=== PATIENT | male | born 1955 | race Caucasian/White ===

== ENCOUNTER 2019-08-24 00:33 | Inpatient (IN) | payer MEDICARE ==
[2019-08-24] MEDS ORDERED: Ondansetron PF 4 MG/2 ML Vial IVP PRN (05:29)
[2019-08-24] MEDS ORDERED: HYDROcodone/Acetaminophen 5/325 mg Tablet PO PRN (05:29)
[2019-08-24] MEDS ORDERED: Promethazine HCl 12.5 MG in Sodium Chloride 0.9% 50 ML IVPB PRN (05:29)
[2019-08-24] MEDS ORDERED: Acetaminophen 325 MG TAB PO PRN (05:29)
[2019-08-24] MEDS ORDERED: hydrALAZINE 20 MG/ML VIAL SLOW IVP PRN (05:29)
[2019-08-24] MEDS ORDERED: cloNIDine 0.1 MG TAB PO PRN (05:29)
[2019-08-24] MEDS ORDERED: Labetalol HCl 100 MG/20 ML VIAL SLOW IVP PRN (05:29)
[2019-08-24] MEDS ORDERED: Guaifenesin DM 100-10/5 ML UDCUP PO PRN (05:29)
--- NOTE | 2019-08-24 05:40 | PDOC.HHP ---
Hospitalist HPI - History of Present Illness Altered mental status History of Present Illness: Patient is a 64 year old male with PMH hastimoto thyroiditis/hypothyroidism, HLD , seizure disorder, methamphetamine abuse, marijuana abuse who presents to the ED as [facility] for slurred speech and altered mental status. Patient called daughter last night and reported not feeling well and speech was slurred. Was brought to [place], there NIHSS 13, had seizure for 2 minutes and given ativan and valproic acid. He has a history of seizures adn is not on any medications. He abuses methamphetamine and marijuana reportedly. At [place], head CT clear, EKG NSR, vitals wnl. Patient altered but rousable, requests i "fuck off" and let him sleep and not talkative much beyond that. Hospitalist ROS - Review of Systems ROS unobtainable: due to mental status Hospitalist History - Past Medical History Other Medical History: hastimoto thyroiditis/hypothyroidism, HLD, seizure disorder, methamphetamine abuse, marijuana abuse - Past Surgical History Other Surgical History: Surgical history of hernia repair, Date of surgery APR 2014, Notes LEFT INGUINAL , Surgical history of orthopedic surgery, NECK FRACTURE WITH HARDWARE. - Family History Family History: reports: no pertinent history - Social History Other Social History: Patient drinks socially, rarely, Patient denies drug use, Patient currently uses tobacco, smokes cigarettes. Patient currently uses drugs, abuses marijuana , abuses methamphetamines, Patient drinks socially, rarely, Patient denies drug use, Patient currently uses tobacco, smokes cigarettes. Daughter reports Methamphetamine and MJA usage, last used this morning. - Exam General - other findings: altered mental status Eye: PERRL, anicteric sclera ENT: normocephalic atraumatic, no oropharyngeal lesions, moist mucosa Neck: supple, symmetric, no JVD, no thyromegaly, no lymphadenopathy, no carotid bruit Heart: RRR, no murmur, no gallops, no rubs, normal peripheral pulses Respiratory: CTAB, no wheezes, no rales, no ronchi, normal chest expansion, no tachypnea, normal percussion Gastrointestinal: soft, non-tender, non-distended, normal bowel sounds, no palpable masses, no hepatomegaly, no splenomegaly, no bruit Extremities: no cyanosis, no clubbing, no edema Skin: normal turgor, no lesions, no rashes Neurological: cranial nerve grossly intact, normal sensation to touch, no weakness, no focal deficits, no new deficit Musculoskeletal: normal tone, normal strength, no muscle wasting Psychiatric - other findings: altered, sleeping and groggy but rousable Hospitalist Results - Labs Lab results: labs from [facility] admission reviewed Additional comment: VITAL SIGNS Sat Aug 24, 2019 00:44 KALEB Cole Nicole BP: 110/75 MAP: 86 Pulse: 76 Resp: 18 Temp: 97.9 (Axillary) Pain: UTD O2 sat: 97 on (Room Air) Time: 08/24/2019 00:44. VITAL SIGNS Sat Aug 24, 2019 02:39 KALEB Cole Nicole BP: 133/76 Pulse: 62 Resp: 17 Pain: UTD O2 sat: 97 on (Room Air) Time: 08/24/2019 02:39. VITAL SIGNS Sat Aug 24, 2019 04:13 KALEB Cole Nicole BP: 110/75 Pulse: 59 Resp: 17 Temp: 97.9 (Axillary) Pain: UTD O2 sat: 98 on (Room Air) Time: 08/24/2019 04:13. Hospitalist H&P A/P - Plan Plan: Patient is a 64 year old male with PMH hastimoto thyroiditis/hypothyroidism, HLD , seizure disorder, methamphetamine abuse, marijuana abuse who presents to the ED as [facility] for slurred speech and altered mental status. # seizure - 2 minutes, broken w/ ativan, resume previous serizure meds, PRN ativan, precautions. CT head report pending. # kyperkalemia - mild, recheck now that had 2L NS # EFREN - recheck now s/p IVF # polysubstance abuse - meth, benzo, cannib detected in UDS, monitor closely on IVF
[2019-08-24] MEDS ORDERED: Lorazepam 2 MG/ML VIAL SLOW IVP PRN (06:07)
[2019-08-24 07:07] VITALS: BMI 21.7
[2019-08-24] MEDS: Levothyroxine 150 MCG TAB PO SCH (07:59)
[2019-08-24] MEDS: carBAMazepine 200 MG TAB PO SCH ×2 (09:15→21:04)
[2019-08-24] MEDS: Famotidine 20 MG TAB PO SCH (09:15)
[2019-08-24] MEDS: Enoxaparin Sodium 40 MG/0.4 ML SYRINGE SC SCH (09:15)
[2019-08-24] MEDS: Gabapentin 300 MG CAP PO SCH (09:15)
[2019-08-24 09:31] LABS: Hemoglobin 13.3 g/dL (14.0-18.0); Mean Corpuscular HGB CONC 33.3 g/dL (32.0-36.0); Mean Corpuscular Hemoglobin 30.3 pg (27.0-31.0); Mean Platelet Volume 8.1 fL (7.4-10.4); Platelet Count 246 thou/uL (130-400); RBC Distribution Width 12.2 % (11.5-14.5); Red Blood Cell (RBC) Count 4.38 mill/uL (4.70-6.10)
[2019-08-24 09:36] LABS: Anion Gap 15 mmol/L (10-20); BUN (Urea Nitrogen) 28 mg/dL (8.4-25.7); Calc. Creatinine Clearance 53 mL/min (70-130); Calcium 8.4 mg/dL (7.8-10.44); Carbon Dioxide 20 mmol/L (23-31); Chloride 109 mmol/L (98-107); Estimated GFR-MDRD 48; Glucose 66 mg/dL (80-115); Sodium 139 mmol/L (136-145)
--- NOTE | 2019-08-24 11:56 | PDOC.HOSPP ---
- Subjective Encounter Date: 08/24/19 Encounter Time: 09:30 Subjective: The patient still reports he feels weak. Denies dizziness while standing but feels his legs give out when he stands up. Reports being on gabapentin for years for neck pain. He denies back pain. No numbness in his legs, saddle anasthesia, bowel or bladder incontinence - Objective Vital Signs & Weight: Vital Signs (12 hours) Temp Pulse Pulse Pulse Resp BP BP 08/24/19 11:31 97.3 F L 54 L 16 08/24/19 08:35 54 L 53 L 117/81 118/75 08/24/19 08:09 98.1 F 55 L 16 08/24/19 05:01 97.7 F 56 L 13 BP BP Pulse Ox 08/24/19 11:31 123/82 99 08/24/19 08:35 08/24/19 08:09 110/73 99 08/24/19 05:01 105/74 98 Weight Weight 160 lb 4.8 oz Result Diagrams: 08/24/19 09:14 08/24/19 09:14 Hospitalist ROS - Review of Systems Constitutional: denies: fever, chills - Medication Medications: Active Medications Generic Name Dose Route Start Last Admin Trade Name Freq PRN Reason Stop Dose Admin Carbamazepine 200 mg 08/24/19 09:00 08/24/19 09:15 Tegretol PO 200 mg Q12HR WOO Administration Enoxaparin Sodium 40 mg 08/24/19 09:00 08/24/19 09:15 Lovenox SC 40 mg 0900 WOO Administration Famotidine 20 mg 08/24/19 09:00 08/24/19 09:15 Pepcid PO 20 mg 09 WOO Administration Gabapentin 300 mg 08/24/19 09:00 08/24/19 09:15 Neurontin PO 300 mg DAILY WOO Administration Levothyroxine Sodium 150 mcg 08/24/19 06:00 08/24/19 07:59 Synthroid PO Not Given 599 WOO - Exam General Appearance: NAD, awake alert Eye: PERRL, anicteric sclera ENT: normocephalic atraumatic, no oropharyngeal lesions Neck: no JVD Heart: RRR, no murmur, no gallops, no rubs Respiratory: CTAB, no wheezes, no rales, no ronchi Gastrointestinal: soft, non-tender, non-distended, normal bowel sounds Extremities: no cyanosis, no clubbing, no edema Skin: normal turgor, no lesions, no rashes Neurological: cranial nerve grossly intact, normal sensation to touch, no focal deficits, no new deficit Musculoskeletal: normal tone, normal strength, no muscle wasting Musculoskeletal - other findings: 5/5 leg strength in both extremities. Psychiatric: normal affect, normal behavior, A&O x 3 Hosp A/P - Plan This is a 64 year old male who presented with recurrent falls and weakness Acute kidney injury - creatinine up to 1.48. Will start on IV fluids. Chest Xray normal. - UA shows no UTI Weakness/Falls - possibly from dehydration. Hydrate with IV fluids - tegretol level normal. Chest X ray normal. CT brain read pending - check TSH - continue with physical therapy - will order a diet since his blood sugar is 66 Amphetamine abuse/Methamphetamine abuse/marijuana abuse - will pastoral counselor on cessation Hypothyroidism - continue levothyroxine. Check TSH Code status: full code
[2019-08-24] MEDS: Sodium Chloride 0.9% 1,000 ML IV SCH ×2 (12:23→21:05)
--- NOTE | 2019-08-24 14:35 | EKG ---
Test Reason : Blood Pressure : / mmHG Vent. Rate : 073 BPM Atrial Rate : 073 BPM P-R Int : 166 ms QRS Dur : 084 ms QT Int : 394 ms P-R-T Axes : 072 053 065 degrees QTc Int : 434 ms Normal sinus rhythm Cannot rule out Anterior infarct , age undetermined Abnormal ECG Confirmed by PIPER FRENCH, DULCE Napier ([id number]), desk editor DEMI PALM ([id number]) on 08/24/2019 2:34:28 PM Referred By: Confirmed By:DULCE SALDAÑA MD
[2019-08-25 04:59] LABS: #Eosinphils 0.2 thou/uL (0.0-0.7); #Monocytes 0.5 thou/uL (0.11-0.59); #Neutrophils 4.1 thou/uL (1.40-6.50); %Basophils 0.7 % (0.0-1.0); %Eosinophils 3.1 % (0.0-10.0); %Lymphocytes 29.3 % (21.0-51.0); %Monocytes 7.5 % (0.0-10.0); %Neutrophils 59.6 % (42.0-75.0); Hemoglobin 12.3 g/dL (14.0-18.0); Mean Corpuscular Hemoglobin 29.8 pg (27.0-31.0); Mean Corpuscular Volume 90.1 fL (78.0-98.0); Mean Platelet Volume 7.7 fL (7.4-10.4); Platelet Count 228 thou/uL (130-400); RBC Distribution Width 11.9 % (11.5-14.5); Red Blood Cell (RBC) Count 4.13 mill/uL (4.70-6.10); White Blood Cell (WBC) Count 6.8 thou/uL (4.8-10.8)
[2019-08-25 05:15] LABS: Anion Gap 10 mmol/L (10-20); BUN (Urea Nitrogen) 26 mg/dL (8.4-25.7); Calc. Creatinine Clearance 59 mL/min (70-130); Calcium 7.9 mg/dL (7.8-10.44); Carbon Dioxide 25 mmol/L (23-31); Chloride 108 mmol/L (98-107); Estimated GFR-MDRD 54; Glucose 77 mg/dL (80-115); Magnesium 1.8 mg/dL (1.6-2.6); Potassium 4.2 mmol/L (3.5-5.1); Sodium 139 mmol/L (136-145)
[2019-08-25] MEDS: Levothyroxine 150 MCG TAB PO SCH (05:26)
[2019-08-25] MEDS: Sodium Chloride 0.9% 1,000 ML IV SCH ×2 (05:28→15:44)
[2019-08-25] MEDS: carBAMazepine 200 MG TAB PO SCH (08:55)
[2019-08-25] MEDS: Famotidine 20 MG TAB PO SCH ×2 (08:55→20:50)
[2019-08-25] MEDS: Gabapentin 300 MG CAP PO SCH (08:55)
[2019-08-25] MEDS: Enoxaparin Sodium 40 MG/0.4 ML SYRINGE SC SCH (09:07)
[2019-08-25 14:27] LABS: Carbamazepine-Tegretol 6.3 ug/mL (4.0-12.0)
--- NOTE | 2019-08-25 17:19 | PDOC.HOSPP ---
- Subjective Encounter Date: 08/25/19 Encounter Time: 11:00 Subjective: The patient still noted to be drowsy. He states his dizziness has improved. He is eating some The patient was confused per nursing staff and did not know why he was here, but later on was able to state reason for admission - Objective Vital Signs & Weight: Vital Signs (12 hours) Temp Pulse Pulse Pulse Resp BP BP 08/25/19 17:01 08/25/19 15:46 56 L 164/100 H 08/25/19 15:18 97.4 F L 56 L 14 08/25/19 11:11 97.5 F L 59 L 20 08/25/19 10:51 56 L 60 157/92 H 08/25/19 07:25 97.6 F 58 L 16 BP BP BP Pulse Ox 08/25/19 17:01 160/90 H 08/25/19 15:46 08/25/19 15:18 164/100 H 100 08/25/19 11:11 144/90 H 98 08/25/19 10:51 144/90 H 08/25/19 07:25 160/83 H 99 Weight Weight 166 lb 8 oz I&O: 08/24/19 08/25/19 08/26/19 06:59 06:59 06:59 Intake Total 1800 480 Output Total 550 300 Balance 1250 180 Result Diagrams: 08/25/19 04:39 08/25/19 04:39 Hospitalist ROS - Review of Systems Constitutional: denies: fever, chills - Medication Medications: Active Medications Generic Name Dose Route Start Last Admin Trade Name Freq PRN Reason Stop Dose Admin Carbamazepine 200 mg 08/24/19 09:00 08/25/19 08:55 Tegretol PO 200 mg Q12HR WOO Administration Enoxaparin Sodium 40 mg 08/24/19 09:00 08/25/19 09:07 Lovenox SC 40 mg 0900 WOO Administration Gabapentin 300 mg 08/24/19 09:00 08/25/19 08:55 Neurontin PO 300 mg DAILY WOO Administration Hydralazine HCl 10 mg 08/24/19 05:29 08/25/19 15:46 Apresoline SLOW IVP 10 mg Q6H PRN Administration SBP GREATER THAN 160 Sodium Chloride 1,000 mls @ 100 mls/hr 08/24/19 12:00 08/25/19 15:44 Normal Saline 0.9% IV 1,000 mls .Q10H WOO Administration Levothyroxine Sodium 150 mcg 08/24/19 06:00 08/25/19 05:26 Synthroid PO 150 mcg 0600 WOO Administration - Exam General Appearance: NAD, awake alert Eye: PERRL, anicteric sclera ENT: normocephalic atraumatic Neck: supple, symmetric, no JVD Heart: RRR, no murmur, no gallops, no rubs Respiratory: CTAB, no wheezes, no rales, no ronchi Gastrointestinal: soft, non-tender, non-distended, normal bowel sounds Extremities: no cyanosis, no clubbing, no edema Skin: normal turgor, no lesions, no rashes Neurological: cranial nerve grossly intact, normal sensation to touch, no focal deficits, no new deficit Musculoskeletal: normal tone, normal strength, no muscle wasting Psychiatric: normal affect, normal behavior, A&O x 3, oriented to person Hosp A/P - Plan This is a 64 year old male who presented with recurrent falls and weakness Acute kidney injury - creatinine down to 1.33 - continue with IV fliuds Seizure - patient had seizure at outside hospital. Was started on tegretol here - levels are normal - neurology has been consulted, plan to do EEG tomorrow -will d/c tegretol, switch to keppra 500 mg bid Weakness/Falls - possibly from dehydration. Hydrate with IV fluids - tegretol level normal. Chest X ray normal. CT brain read pending - TSH normal Amphetamine abuse/Methamphetamine abuse/marijuana abuse - will middle school counselor on cessation Hypothyroidism - continue levothyroxine. TSH normal Code status: full code
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
[2019-08-25] MEDS: levETIRAcetam 500 MG TAB PO SCH (20:50)
[2019-08-25] MEDS ORDERED: carBAMazepine 100 mg Chewable Tablet PO SCH (21:00)
[2019-08-26] MEDS: Sodium Chloride 0.9% 1,000 ML IV SCH ×2 (02:44→16:06)
[2019-08-26 04:47] LABS: #Eosinphils 0.2 thou/uL (0.0-0.7); #Lymphocytes 1.7 thou/uL (1.20-3.40); #Monocytes 0.8 thou/uL (0.11-0.59); %Basophils 0.4 % (0.0-1.0); %Eosinophils 2.6 % (0.0-10.0); %Lymphocytes 22.2 % (21.0-51.0); %Monocytes 9.9 % (0.0-10.0); %Neutrophils 64.8 % (42.0-75.0); Mean Corpuscular HGB CONC 33.6 g/dL (32.0-36.0); Mean Corpuscular Hemoglobin 30.1 pg (27.0-31.0); Mean Corpuscular Volume 89.7 fL (78.0-98.0); Mean Platelet Volume 8.1 fL (7.4-10.4); Platelet Count 224 thou/uL (130-400); White Blood Cell (WBC) Count 7.8 thou/uL (4.8-10.8)
[2019-08-26 05:07] LABS: ALT (SGPT) 8 U/L (8-55); AST (SGOT) 11 U/L (5-34); Albumin 3.5 g/dL (3.4-4.8); Alkaline Phosphatase 86 U/L (40-110); Anion Gap 12 mmol/L (10-20); BUN (Urea Nitrogen) 19 mg/dL (8.4-25.7); Bilirubin, Total 0.4 mg/dL (0.2-1.2); Calc. Creatinine Clearance 64 mL/min (70-130); Calcium 8.3 mg/dL (7.8-10.44); Carbon Dioxide 22 mmol/L (23-31); Chloride 110 mmol/L (98-107); Estimated GFR-MDRD 57; Globulin 2.4 g/dL (2.4-3.5); Glucose 68 mg/dL (80-115); Magnesium 1.7 mg/dL (1.6-2.6); Potassium 4.2 mmol/L (3.5-5.1); Protein, Total 5.9 g/dL (5.8-8.1); Sodium 140 mmol/L (136-145)
[2019-08-26] MEDS: Levothyroxine 150 MCG TAB PO SCH (05:08)
[2019-08-26] MEDS: Enoxaparin Sodium 40 MG/0.4 ML SYRINGE SC SCH (08:17)
[2019-08-26] MEDS: Famotidine 20 MG TAB PO SCH ×2 (08:17→21:17)
[2019-08-26] MEDS: Gabapentin 300 MG CAP PO SCH (08:17)
[2019-08-26] MEDS: levETIRAcetam 500 MG TAB PO SCH ×2 (08:17→21:17)
--- NOTE | 2019-08-26 12:07 | CON ---
NEUROLOGY CONSULTATION DATE OF CONSULTATION: 08/26/2019 REASON FOR CONSULTATION: Altered mental status. HISTORY OF PRESENT ILLNESS: Mr. Penn is a 64-year-old male with history significant for Melissa thyroiditis, hyperlipidemia, seizure disorder, hypothyroidism, methamphetamine abuse, and marijuana abuse, presented to the emergency room as a transfer from [place] because of an episode of slurred speech and altered mental status. The patient called his daughter last night and told her that he was not feeling well. He also had slurred speech and tingling and numbness of the lower extremities followed by a seizure. When he was brought to the [place] ED, NIH Stroke Scale was 13 and he had a seizure lasting for 2 minutes and was given Ativan and loaded with valproic acid. He does have history of seizures, but was not on any medications. He has history of methamphetamine and marijuana abuse. Head CT was done in [place] ER, which did not reveal any acute intracranial pathology. EKG was also unremarkable with normal sinus rhythm and vitals were stable. The patient was altered and agitated, and he was transferred to [facility] for further workup. REVIEW OF SYSTEMS: The patient denies nausea, vomiting, headache, dizziness, chest pain, focal weakness, or focal paresthesias associated with an episode of altered mental status. His altered mental status is resolved at this time and he is back to his baseline. PAST MEDICAL HISTORY: Hypothyroidism, Melissa thyroiditis, hyperlipidemia, seizure disorder, methamphetamine and marijuana abuse. PAST SURGICAL HISTORY: Hernia repair. FAMILY HISTORY: No family history of epilepsy. SOCIAL HISTORY: The patient lives alone. He drinks socially. He does use tobacco. He abuses marijuana, methamphetamine. Vital Signs & Weight: Vital Signs (12 hours) Temp Pulse Pulse Pulse Resp BP BP 08/25/19 17:01 08/25/19 15:46 56 L 164/100 H 08/25/19 15:18 97.4 F L 56 L 14 08/25/19 11:11 97.5 F L 59 L 20 08/25/19 10:51 56 L 60 157/92 H 08/25/19 07:25 97.6 F 58 L 16 BP BP BP Pulse Ox 08/25/19 17:01 160/90 H 08/25/19 15:46 08/25/19 15:18 164/100 H 100 08/25/19 11:11 144/90 H 98 08/25/19 10:51 144/90 H 08/25/19 07:25 160/83 H 99 Weight Weight 166 lb 8 oz I&O: 08/24/19 08/25/19 08/26/19 06:59 06:59 06:59 Intake Total 1800 480 Output Total 550 300 Balance 1250 180 - Medication Medications: Active Medications Generic Name Dose Route Start Last Admin Trade Name Freq PRN Reason Stop Dose Admin Carbamazepine 200 mg 08/24/19 09:00 08/25/19 08:55 Tegretol PO 200 mg Q12HR WOO Administration Enoxaparin Sodium 40 mg 08/24/19 09:00 08/25/19 09:07 Lovenox SC 40 mg 0900 WOO Administration Gabapentin 300 mg 08/24/19 09:00 08/25/19 08:55 Neurontin PO 300 mg DAILY WOO Administration Hydralazine HCl 10 mg 08/24/19 05:29 08/25/19 15:46 Apresoline SLOW IVP 10 mg Q6H PRN Administration SBP GREATER THAN 160 Sodium Chloride 1,000 mls @ 100 mls/hr 08/24/19 12:00 08/25/19 15:44 Normal Saline 0.9% IV 1,000 mls .Q10H WOO Administration Levothyroxine Sodium 150 mcg 08/24/19 06:00 08/25/19 05:26 Synthroid PO 150 mcg 0600 WOO Administration - Exam General Appearance: NAD, awake alert Eye: PERRL, anicteric sclera ENT: normocephalic atraumatic Neck: supple, symmetric, no JVD Heart: RRR, no murmur, no gallops, no rubs Respiratory: CTAB, no wheezes, no rales, no ronchi Gastrointestinal: soft, non-tender, non-distended, normal bowel sounds Extremities: no cyanosis, no clubbing, no edema Skin: normal turgor, no lesions, no rashes Neurological: Mental status; the patient is alert and oriented to person, place, and time. Cranial nerves 2 through 12 intact. Motor; muscle tone and bulk are normal. Moving all 4 extremities equally and symmetrically. Cerebellar intact. Sensory intact. Reflexes deferred. Gait deferred due to the patient's safety reasons. DATA REVIEWED: I reviewed the CT scan, which was unremarkable. ASSESSMENT AND PLAN: Mr. Penn is a 64-year-old male with medical history significant for Melissa thyroiditis, hypothyroidism, hyperlipidemia, seizure disorder, and amphetamine abuse, presented with slurred speech and altered mental status. He had a witnessed seizure in the emergency room. Start Keppra 500 mg twice daily. Observe seizure precautions. Recommend EEG to see if there is a presence of interictal epileptiform discharges. Recommend MRI to rule out acute intracranial process. Recommend MRI of the lumbar spine because of tingling and paresthesias of bilateral lower extremities. Neuro checks every 4 hours. Continue home medications. Continue medical management per primary team. Further recommendations depending on the results of the testing. Thank you for the consult. Job ID: [id number] [facility]
--- NOTE | 2019-08-26 15:45 | EEG ---
Referring Physician: Nena OREILLY EEG # [id number] TEST TYPE: EXTENDED CONTINUOUS VIDEO EEG REPORT: This EEG was performed using 24 channel [employer] video digital EEG machine with 24 disc electrodes. This was an extended 2 hour 6 minutes of inpatient video EEG recording. Digital analysis of the EEG was done for spike and seizure detection which revealed no abnormalities. BACKGROUND: The posterior background rhythm is 8.5 hertz. Minimal reactivity is seen to eye opening and eye closure. HYPERVENTILATION: Not performed. PHOTIC STIMULATION: No significant response seen with photic stimulation. SLEEP: Drowsiness and sleep are observed. EEG DIAGNOSIS: Occasional irregular theta activity seen during the recording. CLINICAL INTERPRETATION: THIS EEG IS CONSISTENT WITH MILD GENERALIZED NONSPECIFIC CEREBRAL DYSFUNCTION. THERE ARE NO ICTAL OR INTERICTAL EPILEPTIFORM ABNORMALITIES SEEN DURING THE RECORDING. Flamer Sealer: NGOIZ [employer] Ded[employer] Machine Operator: EEG.[email or web address] CUETO
--- NOTE | 2019-08-26 19:22 | MRI ---
BRAIN MRI WITHOUT CONTRAST: Date: 08-26-2019 Comparison: None History: Seizure, left facial numbness. Technique: Multiplanar multisequence MR imaging of the brain is obtained without contrast. FINDINGS: The diffusion weighted imaging demonstrates no evidence for acute infarction. There is moderate degenerative change involving the atlantoaxial interspace. The visualized paranasal sinuses/mastoid air cells appear grossly unremarkable. Arterial flow voids at the axial level of the skull base appear grossly unremarkable on the T2 weight ed imaging. There are numerous scattered foci of increased T2 and FLAIR signal within the periventricular, deep, and subcortical white matter, evidence of extensive small vessel disease. Regional bone marrow signal intensity appears within normal limits. Coronal gradient echo imaging demonstrates no evidence for intracranial hemorrhage. There is a small arachnoid cyst within the anterior aspect of the middle cranial fossa on the right m easuring approximately 1.3 cm. The hippocampi appear grossly unremarkable on the provided thin section T1 coronal and gradient echo coronal imaging. IMPRESSION: No acute findings. Chronic findings as detailed above. POS: DEL
--- NOTE | 2019-08-26 19:26 | MRI ---
MRI LUMBAR SPINE WITHOUT CONTRAST: Indications: Low back pain. Numbness, difficulty walking. FINDINGS: The lumbar vertebrae maintain height and alignment. Disc spaces are normally preserved. Vertebral bod y signal appears normally maintained. L1-2: No disc bulge or protrusion. No central canal or foraminal stenosis. L2-3: Mild disc bulge which flattens the anterior thecal sac. Mild facet arthrosis. No significant ce ntral canal or foraminal stenosis. L3-4: Mild disc bulge flattens the anterior thecal sac. Mild facet arthrosis with posterior epidural fat. Mild central canal stenosis. L4-5: There is a broad based disc protrusion flattening the anterior thecal sac. Prominent facet hype rtrophy. Ligamentous hypertrophy. These changes result in mild to moderate central canal stenosis. B ilateral foraminal stenosis secondary to disc bulge and facet hypertrophy. L5-S1: No significant disc bulge. No central canal or foraminal stenosis. IMPRESSION: 1. Annular fissure with broad based protrusion at L4-5 as described above. 2. Incidentally noted in review of soft tissues is evidence of left hydronephrosis with dilated left renal pelvis. Recommend clinical correlation and further investigation as indicated. POS: SREE
[2019-08-27] MEDS: Sodium Chloride 0.9% 1,000 ML IV SCH ×2 (03:08→11:04)
[2019-08-27 05:10] LABS: #Eosinphils 0.3 thou/uL (0.0-0.7); #Lymphocytes 1.7 thou/uL (1.20-3.40); #Monocytes 0.7 thou/uL (0.11-0.59); #Neutrophils 3.5 thou/uL (1.40-6.50); %Basophils 0.4 % (0.0-1.0); %Lymphocytes 27.5 % (21.0-51.0); %Monocytes 10.9 % (0.0-10.0); %Neutrophils 56.2 % (42.0-75.0); Hemoglobin 12.1 g/dL (14.0-18.0); Mean Corpuscular HGB CONC 33.8 g/dL (32.0-36.0); Mean Corpuscular Hemoglobin 30.2 pg (27.0-31.0); Mean Corpuscular Volume 89.2 fL (78.0-98.0); Mean Platelet Volume 7.8 fL (7.4-10.4); Platelet Count 215 thou/uL (130-400); Red Blood Cell (RBC) Count 4.01 mill/uL (4.70-6.10); White Blood Cell (WBC) Count 6.2 thou/uL (4.8-10.8)
[2019-08-27 05:36] LABS: Anion Gap 10 mmol/L (10-20); BUN (Urea Nitrogen) 16 mg/dL (8.4-25.7); Calc. Creatinine Clearance 62 mL/min (70-130); Calcium 8.6 mg/dL (7.8-10.44); Carbon Dioxide 27 mmol/L (23-31); Chloride 109 mmol/L (98-107); Estimated GFR-MDRD 55; Glucose 82 mg/dL (80-115); Magnesium 1.6 mg/dL (1.6-2.6); Potassium 4.1 mmol/L (3.5-5.1); Sodium 142 mmol/L (136-145)
[2019-08-27] MEDS: Levothyroxine 150 MCG TAB PO SCH (05:50)
[2019-08-27 07:43] VITALS: BP 144/94; TEMP 97.6
[2019-08-27] MEDS: Famotidine 20 MG TAB PO SCH (08:40)
[2019-08-27] MEDS: levETIRAcetam 500 MG TAB PO SCH (08:40)
[2019-08-27] MEDS: Enoxaparin Sodium 40 MG/0.4 ML SYRINGE SC SCH (08:40)
[2019-08-27] MEDS: Gabapentin 300 MG CAP PO SCH (08:40)
--- NOTE | 2019-08-27 09:13 | ULT ---
BILATERAL RENAL ULTRASOUND COMPLETE: HISTORY: Hydronephrosis documented on prior MRI exam. FINDINGS: The right kidney measures 11.2 x 4.6 x 4.3 cm. The left kidney measures 12.7 x 7.3 x 6.6 cm. Echogenic densities with shadowing in the lower pole right kidney without hydronephrosis. Severe lef t renal hydronephrosis. Exam was limited technically because of gas and body habitus. IMPRESSION: Marked left renal hydronephrosis. Evidence for calculi in the lower pole of the right kidney without hydronephrosis. Followup abdomen and pelvic CT scan is recommended for further assessment. If the patient can have i odinated contrast, then I would suggest multiphase study with and without contrast with CT urography protocol. If the patient cannot have contrast, a noncontrast study of the abdomen and pelvis is zana mmended. POS: RRE
--- NOTE | 2019-08-27 11:01 | PDOC.HOSPP ---
- Subjective Encounter Date: 08/27/19 Subjective: NEUROLOGY PROGRESS NOTE No acute events or seizures overnight. - Objective Vital Signs & Weight: Vital Signs (12 hours) Temp Pulse Resp BP BP Pulse Ox 08/27/19 07:40 97.6 F 53 L 16 144/94 H 98 08/27/19 03:22 97.8 F 63 20 151/78 H 99 08/26/19 23:28 98.4 F 59 L 20 144/81 H 98 Weight Weight 166 lb 8 oz I&O: 08/26/19 08/27/19 08/28/19 06:59 06:59 06:59 Intake Total 480 2300 Output Total 300 Balance 180 2300 Result Diagrams: 08/27/19 04:46 08/27/19 04:46 Radiology Reviewed by me: Yes EKG Reviewed by me: Yes Hospitalist ROS - Review of Systems Constitutional: denies: fever, chills, sweats, weakness, malaise, other Eyes: denies: pain, vision change, conjunctivae inflammation, eyelid inflammation, redness, other ENT: denies: ear pain, ear discharge, nose pain, nose discharge, nose congestion , mouth pain, mouth swelling, throat pain, throat swelling, other Respiratory: denies: cough, dry, shortness of breath, hemoptysis, SOB with excertion, pleuritic pain, sputum, wheezing, other Cardiovascular: denies: chest pain, palpitations, orthopnea, paroxysmal noc. dyspnea, edema, light headedness, other Gastrointestinal: denies: nausea, vomiting, abdominal pain, diarrhea, constipation, melena, hematochezia, other Genitourinary: denies: dysuria, frequency, incontinence, hematuria, retention, other Neurological: reports: weakness. denies: numbness, incoordination, change in speech, confusion, seizures, other Other: generalized weakness - Medication Medications: Active Medications Generic Name Dose Route Start Last Admin Trade Name Freq PRN Reason Stop Dose Admin Acetaminophen 650 mg 08/24/19 05:29 08/26/19 08:17 Tylenol PO 650 mg Q4H PRN Administration Headache/Fever/Mild Pain (1-3) Hydrocodone Bitart/Acetaminophen 1 tab 08/24/19 05:29 08/25/19 20:51 [place] 5/325 PO 1 tab Q4H PRN Administration Moderate Pain (4-6) Enoxaparin Sodium 40 mg 08/24/19 09:00 08/27/19 08:40 Lovenox SC 40 mg 0900 WOO Administration Famotidine 20 mg 08/25/19 21:00 08/27/19 08:40 Pepcid PO 20 mg BID WOO Administration Gabapentin 300 mg 08/24/19 09:00 08/27/19 08:40 Neurontin PO 300 mg DAILY WOO Administration Hydralazine HCl 10 mg 08/24/19 05:29 08/25/19 15:46 Apresoline SLOW IVP 10 mg Q6H PRN Administration SBP GREATER THAN 160 Sodium Chloride 1,000 mls @ 100 mls/hr 08/24/19 12:00 08/27/19 03:08 Normal Saline 0.9% IV 1,000 mls .Q10H WOO Administration Levetiracetam 500 mg 08/25/19 21:00 08/27/19 08:40 Keppra PO 500 mg BID WOO Administration Levothyroxine Sodium 150 mcg 08/24/19 06:00 08/27/19 05:50 Synthroid PO 150 mcg 00 WOO Administration - Exam General Appearance: awake alert Eye: PERRL ENT: normocephalic atraumatic Neck: supple Heart: RRR Respiratory: CTAB Gastrointestinal: soft Extremities: no cyanosis Skin: normal turgor Neurological: cranial nerve grossly intact, normal sensation to touch, no weakness, no focal deficits, no new deficit Musculoskeletal: normal tone, normal strength Psychiatric: normal affect, normal behavior, A&O x 3, oriented to person, oriented to place, oriented to time Hosp A/P (1) Seizure Code(s): R56.9 - UNSPECIFIED CONVULSIONS Status: Acute (2) AMS (altered mental status) Code(s): R41.82 - ALTERED MENTAL STATUS, UNSPECIFIED Status: Acute - Plan 64 year old presented with altered mental status and seizure. MRI brain reviewed which was negative for acute intracranial process. EEG reviewed which was negative for seizure activity. Continue Keppra 500 mg twice daily. Observe seizure precautions including driving restrictions. Continue home medications Continue medical management per primary team. Follow up with neurologist as outpatient for seizure management.
--- NOTE | 2019-08-27 12:58 | PQF ---
LETICIA CHOPRA DEDE, [facility] [id number] [facility] [id number] CLINICAL DOCUMENTATION IMPROVEMENT CLARIFICATION FORM: ICD-10 Updated PLEASE DO AN ADDENDUM TO THE PROGRESS NOTE WITH ANY DOCUMENTATION UPDATES OR ADDITIONS AND CARRY THROUGH TO DC SUMMARY. THANK YOU. DATE: 08/27/19 ATTN: DR. Roberto AGUAYO Please exercise your independent, professional judgment in responding to the clarification form. Clinical indicators are provided on the bottom of this form for your review. Please check appropriate box(s): [ ] Encephalopathy: Type: [ X] Acute [ ] Subacute [ ] Chronic Etiology: [ ] Hypertensive [ X ] Metabolic [ X ] Toxic [ X ] Drug induced: ____tegretol [ ] Unspecified [ ] in the setting of underlying dementia [ ] Other (please specify) [ ] Other diagnosis [ ] Unable to determine In addition, please specify: Present on Admission (POA): [ X ] Yes [ ] No [ X] Unable to determine For continuity of documentation, please document condition throughout progress notes and discharge summary. Thank You. CLINICAL INDICATORS - SIGNS / SYMPTOMS / LABS / RESULTS AND LOCATION IN EMR 08/23 ED [id number] FINAL DX : PERSISTENT ALTERED MENTAL STATUS, SEIZURES 08/23 H&P (ATERNO) A/P: EFREN, POLYSUBSTANCE ABUSE, SEIZURE, HYPERKALEMIA 08/24 PN ( DEDE) THE PATIENT WAS CONFUSED PER NURSING STAFF AND DID NOT KNOW WHY HE WAS HERE, BUT LATER ON WAS ABLE TO STATE THE REASON FOR ADMISSION. 08/25 CONSULT (DENILSON) THE PATIENT WAS ALTERED AND AGITATED AND WAS TRANSFERRED TO [facility] FOR FURTHER WORKUP. PRESENTED WITH SLURRED SPEECH AND AMS 08/26 PN ( KIRMANI) A/P: 1). SEIZURE, 2). ALTERED MENTAL STATUS RISK: MARIJUANA/METHAMPHETAMINE ABUSE, SEIZURE ( PN / DEDE) 08/24 TREATMENT NEUROLOGY CONSULT ( 08/25) NEURO CHECKS Q 4 HOURS ( CONSULT/08/25) THANK YOU! KATHIE (This form is maintained as a part of the permanent medical record) 2014 [employer]. All Rights Reserved KALEB [email or web address]
--- NOTE | 2019-08-28 12:58 | DIS ---
DATE OF ADMISSION: 08/24/2019 DATE OF DISCHARGE: 08/27/2019 DISCHARGE DIAGNOSES: 1. Acute kidney injury. 2. Seizures. 3. Weakness/falls. 4. Amphetamine abuse/methamphetamine use/marijuana abuse. 5. Hypothyroidism. 6. Panic attacks. CONSULTATIONS: Neurology with Dr. Cabrera. PROCEDURES: None. BRIEF HISTORY OF PRESENT ILLNESS: This is a 64-year-old male with past medical history of hypothyroidism, seizure disorder, methamphetamine use, marijuana abuse, who presented to the emergency room with slurred speech and altered mental status. The patient was noted with NIH stroke scale of 13. He had a seizure for 2 minutes and was given Ativan and valproic acid. The patient states he has an allergy to Dilantin. He also reports abusing methamphetamine and marijuana. In [place], CT of his head was normal. The patient was admitted for further workup. HOSPITAL COURSE: 1. Acute encephalopathy secondary to seizure and Tegretol: The patient was initially started on Tegretol by admitting hospitalist for seizure. However, this made him very drowsy and the patient was not very cooperative. Neurology was consulted and the patient had an EEG done, which showed mild generalized nonspecific cerebral dysfunction. The patient was switched to Keppra 500 mg twice daily and his mental status improved with this. He did have Tegretol levels checked, which were normal. He will be discharged with Keppra 500 mg twice daily and will follow up with Dr. Cabrera in 2 months. 2. Numbness of the face and lower extremities: According to the daughter, the patient had an acute episode of numbness of the left side of his face and legs and was unable to stand up. He had an MRI of his brain, which showed no stroke. 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 He was seen by Physical Therapy and was independent, but will be discharged with a walker. 3. Acute kidney injury: The patient did have an elevated creatinine of 1.3. He was urinating well without Chung catheter. MRI incidentally showed severe left- sided hydronephrosis. Renal ultrasound was done, which showed severe left-sided hydronephrosis. He does have a large kidney stone, which is nonobstructing. I spoke with Dr. Avila, who will see the patient in the clinic in a week. The patient reports a prior history of lithotripsies in the past secondary to large kidney stone. He is asymptomatic currently and can get a repeat BMP in a week. 4. Panic attacks: The patient reports having frequent panic attacks, which is why he abuses methamphetamine. I explained that drug use is most likely causing his panic attacks and he should quit. The patient states he will not quit using methamphetamine unless he is prescribed something for anxiety. I did speak to the patient's daughter, who is okay with starting him on an SSRI. I started him on fluxoetine 20 mg daily. He should be monitored closely for suicidal ideation. This is explained to the daughter, who updated the patient's girlfriend. He should follow up with the PCP in a week for additional titration. DISCHARGE PHYSICAL EXAMINATION: VITAL SIGNS: Temperature 97.6, heart rate 53, respiratory rate 16, O2 saturation 98% on room air, and blood pressure 144/94. GENERAL: The patient is alert, awake, and oriented x3. CVS: Regular rate and rhythm with no murmurs, rubs, or gallops. LUNGS: Clear to auscultation bilaterally. ABDOMEN: Positive bowel sounds. Soft, nontender, and nondistended. EXTREMITIES: No edema. PERTINENT LABORATORY DATA: CBC on 08/26: Hemoglobin 12.1, hematocrit 35.7. BMP on 08/26: Creatinine 1.31. Vitamin B12: 277. Folate: 7.3. TSH: 0.83. Carbamazepine level: 6.3. IMAGING DATA: Brain MRI on 08/25: No acute findings. 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 Left hydronephrosis with dilated left renal pelvis. Renal ultrasound on 08/26: Marked left renal hydronephrosis. Calculi in the lower pole of the right kidney without hydronephrosis. CT urography protocol is recommended. DISCHARGE CONDITION: Stable. ACTIVITY: As tolerated. DIET: Regular diet. DISCHARGE MEDICATIONS: 1. Fluoxetine 20 mg p.o. daily. 2. Keppra 500 mg p.o. daily. Job ID: [id number] MTDD
--- NOTE | 2019-08-28 17:02 | PDOC.HOSPP ---
- Subjective Encounter Date: 08/26/19 Encounter Time: 10:00 Subjective: LATE ENTRY PROGRESS note 08/25 Patient had no complaints. No dizziness, slightly unsteady while walking. No abd pain, nausea or vomiting. The patient wants to go home. Awaiting MRI brain and MRI cervical spine results Spoke with daughter who reported patient had left sided face numbness, numbness in the legs that caused inability to stand and was concerned about stroke - Objective Vital Signs & Weight: Weight Weight 166 lb 8 oz I&O: 08/27/19 08/28/19 08/29/19 06:59 06:59 06:59 Intake Total 2300 Balance 2300 Result Diagrams: 08/27/19 04:46 08/27/19 04:46 Hospitalist ROS - Review of Systems Constitutional: denies: fever, chills - Exam General Appearance: NAD, awake alert Eye: PERRL, anicteric sclera ENT: normocephalic atraumatic, no oropharyngeal lesions Neck: supple, no JVD Heart: RRR, no murmur, no gallops, no rubs Respiratory: CTAB, no wheezes, no rales, no ronchi Gastrointestinal: soft, non-tender, non-distended, normal bowel sounds Extremities: no cyanosis, no clubbing, no edema Skin: normal turgor, no lesions, no rashes Neurological: cranial nerve grossly intact, normal sensation to touch, no focal deficits, no new deficit, vision deficit Hosp A/P - Plan This is a 64 year old male who presented with recurrent falls and weakness Acute kidney injury - creatinine down to 1.33 - discontinued IV fluids Seizure - patient had seizure at outside hospital. Was started on tegretol here - levels are normal -EEG showed diffuse slowing Left sided face numbness and leg numbness - numbness resolved - MRI brain and MRI cervical spine pending to rule out stroke and DJD Weakness/Falls - improved. CT head negative, Xray negative - PT has felt that he is independent Amphetamine abuse/Methamphetamine abuse/marijuana abuse - counseled on cessation Hypothyroidism - continue levothyroxine. TSH normal Dispo: pending MRI brain/ lumbar spine, renal US Code status: full code
== END 2019-08-27 11:31 | disposition home health service (06) | DRG 92 ==
LOC: ERS 00:33 → 2SE 01:53
PROVIDERS: ADMIT Internal Medicine; ATTEND Internal Medicine
DX: G92 Toxic encephalopathy (principal); N17.9 Acute kidney failure, unspecified; N13.30 Unspecified hydronephrosis; G40.909 Epilepsy, unspecified, not intractable, without status epilepticus; F15.10 Other stimulant abuse, uncomplicated; F12.10 Cannabis abuse, uncomplicated; E03.9 Hypothyroidism, unspecified; F41.0 Panic disorder [episodic paroxysmal anxiety]; R29.713 NIHSS score 13; T42.1X5A Adverse effect of iminostilbenes, initial encounter; N20.0 Calculus of kidney; F41.9 Anxiety disorder, unspecified; R47.81 Slurred speech; R40.2132 Coma scale, eyes open, to sound, at arrival to emergency department; R40.2352 Coma scale, best motor response, localizes pain, at arrival to emergency department; E78.5 Hyperlipidemia, unspecified; E87.5 Hyperkalemia; F19.10 Other psychoactive substance abuse, uncomplicated; R40.2252 Coma scale, best verbal response, oriented, at arrival to emergency department; E86.0 Dehydration; F17.210 Nicotine dependence, cigarettes, uncomplicated; Z88.6 Allergy status to analgesic agent; Z88.5 Allergy status to narcotic agent; Z88.8 Allergy status to other drugs, medicaments and biological substances
CPT/HCPCS: 36415; 70551; 72148; 76770; 80048; 80053; 80156; 82607; 82746; 83735; 84443; 85025; 85027; 93005; 95712; 95816; 95819; 95957; J0360; J1650

== ENCOUNTER 2021-08-17 16:34 | Outpatient (CLI) | payer OTHER ==
[2021-08-17 17:38] LABS: Hemoglobin 13.4 g/dL (13.5-17.5); Mean Corpuscular HGB CONC 33.1 g/dL (32.0-36.0); Mean Corpuscular Hemoglobin 28.1 pg (27.0-33.0); Mean Corpuscular Volume 84.9 fl (81.2-95.1); Mean Platelet Volume 10.1 fl (7.4-10.4); Platelet Count 294 10x3/uL (150-450); RBC Distribution Width 13.3 % (11.5-14.5); Red Blood Cell (RBC) Count 4.77 10x6/uL (4.32-5.72); White Blood Cell (WBC) Count 10.1 10x3/uL (3.5-10.5)
[2021-08-17 17:38] LABS: Bilirubin Neg (Negative); Blood, Urine 250 (Negative); Clarity Cloudy (Clear); Glucose, Urine (Dipstick) Normal (Negative); Leukocyte 500 (Negative); Protein, Urine (Dipstick) 500 mg/dl (Neg-Trace)
[2021-08-17 17:45] LABS: Ketone, Urine Negative (Negative); Nitrite Negative (Negative); Specific Gravity, Urine 1.025 (1.002-1.036); Urobilinogen Normal mg/dL (Less than 2)
[2021-08-17 17:53] LABS: RBC/HPF Greater than 50 HPF (0-3); Squamous Epithelial 0-3 HPF (0-3); WBC/HPF 21-50 HPF (0-3)
[2021-08-17 17:54] LABS: Bacteria/HPF 2+ HPF (None Seen)
[2021-08-17 17:56] LABS: INR-International Normal Ratio 0.9; PTT 26.9 sec (22.0-33.0); Prothrombin Time 10.3 sec (9.5-12.1)
[2021-08-17 17:59] LABS: Anion Gap 15 mmol/L (10-20); BUN (Urea Nitrogen) 25 mg/dL (8.4-25.7); Calc. Creatinine Clearance 0 mL/min (70-130); Calcium 9.4 mg/dL (7.8-10.44); Carbon Dioxide 26 mmol/L (23-31); Chloride 106 mmol/L (98-107); Glucose 124 mg/dL (80-115); Potassium 4.4 mmol/L (3.5-5.1); Sodium 143 mmol/L (136-145)
[2021-08-18 07:41] LABS: SARS-CoV-2 PCR by NAA Not Detected (NotDetected)
== END 2021-08-17 16:35 | disposition home or self-care (01) ==
LOC: LABBT 16:34
PROVIDERS: ATTEND Urology
DX: Z01.812 Encounter for preprocedural laboratory examination (principal); N20.1 Calculus of ureter; Z20.822 Contact with and (suspected) exposure to COVID-19
CPT/HCPCS: 80048; 81001; 85027; 85610; 85730; 87086; U0003; U0005; 93005; 93010

== ENCOUNTER 2021-08-19 09:23 | Day surgery (SDC) | payer OTHER ==
[2021-08-18 14:07] VITALS: BMI 24.4
[2021-08-19] MEDS ORDERED: Iopamidol 0 ML ONE (13:58)
[2021-08-19] MEDS ORDERED: B & O ONE (13:58)
[2021-08-19] MEDS ORDERED: Midazolam HCl 2 mg/2 ml Vial ONE (14:01)
[2021-08-19] MEDS ORDERED: fentaNYL Citrate/PF 100 MCG/2 ML SYRINGE ONE (14:01)
[2021-08-19] MEDS ORDERED: Levofloxacin 500 mg/D5W 100 ml Premix Bag ONE (14:05)
[2021-08-19] MEDS ORDERED: Rocuronium Bromide 10 MG/ML (10ML VIAL) ONE (14:17)
[2021-08-19] MEDS ORDERED: Glycopyrrolate 0.2 MG/ML 5 ML SYRINGE ONE (14:17)
[2021-08-19] MEDS ORDERED: Ondansetron PF 4 MG/2 ML Vial ONE (14:17)
[2021-08-19] MEDS ORDERED: PROPOFOL 200 MG/20 ML VIAL ONE (14:17)
[2021-08-19] MEDS ORDERED: Lidocaine 1% PF 5 ML VIAL ONE (14:17)
[2021-08-19] MEDS ORDERED: Dexamethasone 20 MG/5 ML VIAL ONE (14:17)
[2021-08-19] MEDS ORDERED: PHENYLEPHRINE-NS 100 MCG/ML 10 ML SYRINGE ONE (14:17)
[2021-08-19] MEDS ORDERED: Phenazopyridine HCl 100 MG TAB ONE ×2 (16:26)
[2021-08-19] MEDS ORDERED: Oxybutynin 5 MG TAB ONE (16:27)
== END 2021-08-19 17:30 | disposition home or self-care (01) ==
LOC: SDC 09:23
PROVIDERS: ATTEND Urology
PROC: 0TC38ZZ Extirpation of Matter from Right Kidney Pelvis, Via Natural or Artificial Opening Endoscopic (ICD-10-PCS; principal; 2021-08-19)
PROC: 0T768DZ Dilation of Right Ureter with Intraluminal Device, Via Natural or Artificial Opening Endoscopic (ICD-10-PCS; 2021-08-19)
DX: N20.2 Calculus of kidney with calculus of ureter (principal); N28.89 Other specified disorders of kidney and ureter; N26.1 Atrophy of kidney (terminal); E78.5 Hyperlipidemia, unspecified; E03.9 Hypothyroidism, unspecified; E78.00 Pure hypercholesterolemia, unspecified; Z87.891 Personal history of nicotine dependence; Z79.890 Hormone replacement therapy; Z79.899 Other long term (current) drug therapy; Z88.5 Allergy status to narcotic agent; Z88.8 Allergy status to other drugs, medicaments and biological substances
CPT/HCPCS: 76000; 82365; 88300; C1713; C2617; J1100; J1956; J2250; J2405; J2704; Q9967

== ENCOUNTER 2021-12-24 22:45 | Inpatient (IN) | payer MEDICARE, OTHER ==
[2021-12-25 03:08] VITALS: BMI 22.2
[2021-12-25] MEDS ORDERED: Ondansetron PF 4 MG/2 ML Vial IVP PRN (03:50)
[2021-12-25 05:54] LABS: #Eosinphils 0.3 thou/uL (0.0-0.7); #Lymphocytes 2.9 thou/uL (1.20-3.40); #Monocytes 0.7 thou/uL (0.11-0.59); #Neutrophils 5.1 thou/uL (1.40-6.50); %Basophils 0.3 % (0.0-1.0); %Eosinophils 3.8 % (0.0-10.0); %Lymphocytes 32.1 % (21.0-51.0); %Monocytes 7.8 % (0.0-10.0); Hemoglobin 13.2 g/dL (14.0-18.0); Mean Corpuscular HGB CONC 32.8 g/dL (32.0-36.0); Mean Corpuscular Volume 88.6 fL (78.0-98.0); Mean Platelet Volume 7.5 fL (7.4-10.4); Platelet Count 244 thou/uL (130-400); RBC Distribution Width 12.3 % (11.5-14.5); Red Blood Cell (RBC) Count 4.54 mill/uL (4.70-6.10)
[2021-12-25 05:59] LABS: Anion Gap 12 mmol/L (10-20); BUN (Urea Nitrogen) 16 mg/dL (8.4-25.7); Calc. Creatinine Clearance 68 mL/min (70-130); Calcium 9.1 mg/dL (7.8-10.44); Carbon Dioxide 23 mmol/L (23-31); Chloride 108 mmol/L (98-107); Estimated GFR 70; Glucose 85 mg/dL (80-115); Potassium 3.9 mmol/L (3.5-5.1); Sodium 139 mmol/L (136-145)
[2021-12-25] MEDS ORDERED: FLU VACC QS2022-23(6MOS UP)/PF 60 MCG/0.5 ML SYRINGE IM ONE (09:00)
[2021-12-25] MEDS: Acetaminophen 325 MG TAB PO PRN (10:19)
[2021-12-25] MEDS ORDERED: Lorazepam 2 MG/ML VIAL ONE (14:20)
[2021-12-25] MEDS ORDERED: levETIRAcetam in NS 1,000 MG in Premix Bag 1 BAG IVPB SCH (14:45)
[2021-12-25] MEDS ORDERED: levETIRAcetam 500 MG/5 ML VIAL SLOW IVP SCH (15:00)
[2021-12-25] MEDS ORDERED: Lorazepam 2 MG/ML VIAL SLOW IVP SCH (15:00)
[2021-12-25] MEDS ORDERED: Lorazepam 2 MG/ML VIAL SLOW IVP PRN (16:07)
[2021-12-25] MEDS: Multivitamins, Adult 10 ML, Folic Acid 1 MG, Thiamine HCl 100 MG in Dextrose 5 %-0.45 %... IV SCH (16:10)
[2021-12-25] MEDS ORDERED: LORazepam 2 MG/ML SYR.(CARPUJECT) IVP PRN (17:44)
[2021-12-25] MEDS ORDERED: Haloperidol Lactate 5 MG/ML VIAL IM SCH (18:00)
[2021-12-25] MEDS ORDERED: levETIRAcetam in NS 500 MG in Premix Bag 1 BAG IVPB SCH (21:00)
[2021-12-25] MEDS: levETIRAcetam 500 MG/5 ML VIAL SLOW IVP SCH (21:07)
[2021-12-25] MEDS: Lorazepam 2 MG/ML VIAL SLOW IVP PRN (21:14)
[2021-12-26] MEDS: Lorazepam 2 MG/ML VIAL SLOW IVP PRN ×3 (01:11→14:53)
[2021-12-26 06:57] LABS: #Eosinphils 0.2 thou/uL (0.0-0.7); #Lymphocytes 2.2 thou/uL (1.20-3.40); #Monocytes 0.8 thou/uL (0.11-0.59); #Neutrophils 6.3 thou/uL (1.40-6.50); %Basophils 0.3 % (0.0-1.0); %Eosinophils 1.6 % (0.0-10.0); %Lymphocytes 23.4 % (21.0-51.0); %Monocytes 8.7 % (0.0-10.0); Hemoglobin 13.6 g/dL (14.0-18.0); Mean Corpuscular HGB CONC 32.6 g/dL (32.0-36.0); Mean Corpuscular Hemoglobin 28.4 pg (27.0-31.0); Mean Corpuscular Volume 87.2 fL (78.0-98.0); Mean Platelet Volume 7.4 fL (7.4-10.4); Platelet Count 249 thou/uL (130-400); RBC Distribution Width 12.3 % (11.5-14.5); White Blood Cell (WBC) Count 9.5 thou/uL (4.8-10.8)
[2021-12-26 07:11] LABS: Anion Gap 12 mmol/L (10-20); BUN (Urea Nitrogen) 18 mg/dL (8.4-25.7); Calc. Creatinine Clearance 62 mL/min (70-130); Calcium 9.4 mg/dL (7.8-10.44); Carbon Dioxide 25 mmol/L (23-31); Chloride 106 mmol/L (98-107); Estimated GFR 64; Glucose 98 mg/dL (80-115); Sodium 139 mmol/L (136-145)
[2021-12-26] MEDS: levETIRAcetam 500 MG/5 ML VIAL SLOW IVP SCH ×2 (10:00→21:57)
[2021-12-26] MEDS ORDERED: hydrALAZINE 20 MG/ML VIAL SLOW IVP PRN (16:05)
[2021-12-26] MEDS: Multivitamins, Adult 10 ML, Folic Acid 1 MG, Thiamine HCl 100 MG in Dextrose 5 %-0.45 %... IV SCH (16:54)
[2021-12-26] MEDS: Labetalol HCl 100 MG/20 ML VIAL SLOW IVP PRN ×2 (16:54→21:57)
[2021-12-27 06:06] LABS: #Eosinphils 0.1 thou/uL (0.0-0.7); #Lymphocytes 2.6 thou/uL (1.20-3.40); #Monocytes 1.3 thou/uL (0.11-0.59); #Neutrophils 9.6 thou/uL (1.40-6.50); %Basophils 0.3 % (0.0-1.0); %Eosinophils 0.8 % (0.0-10.0); %Monocytes 9.5 % (0.0-10.0); %Neutrophils 70.5 % (42.0-75.0); Hemoglobin 15.5 g/dL (14.0-18.0); Mean Corpuscular HGB CONC 33.6 g/dL (32.0-36.0); Mean Corpuscular Volume 86.1 fL (78.0-98.0); Mean Platelet Volume 7.9 fL (7.4-10.4); Platelet Count 297 thou/uL (130-400); RBC Distribution Width 12.3 % (11.5-14.5); Red Blood Cell (RBC) Count 5.35 mill/uL (4.70-6.10); White Blood Cell (WBC) Count 13.7 thou/uL (4.8-10.8)
[2021-12-27 06:43] LABS: Anion Gap 17 mmol/L (10-20); BUN (Urea Nitrogen) 20 mg/dL (8.4-25.7); Calc. Creatinine Clearance 60 mL/min (70-130); Calcium 10.2 mg/dL (7.8-10.44); Carbon Dioxide 21 mmol/L (23-31); Chloride 104 mmol/L (98-107); Estimated GFR 61; Glucose 112 mg/dL (80-115); Potassium 4.3 mmol/L (3.5-5.1); Sodium 138 mmol/L (136-145)
[2021-12-27] MEDS: levETIRAcetam 500 MG/5 ML VIAL SLOW IVP SCH ×2 (08:56→21:29)
[2021-12-27] MEDS: Lorazepam 2 MG/ML VIAL SLOW IVP PRN (09:39)
[2021-12-27] MEDS: Multivitamins, Adult 10 ML, Folic Acid 1 MG, Thiamine HCl 100 MG in Dextrose 5 %-0.45 %... IV SCH (16:24)
[2021-12-28] MEDS: levETIRAcetam 500 MG/5 ML VIAL SLOW IVP SCH ×2 (09:52→22:44)
[2021-12-28] MEDS ORDERED: Midazolam HCl 2 mg/2 ml Vial IVP PRN (16:06)
[2021-12-28] MEDS: Multivitamins, Adult 10 ML, Folic Acid 1 MG, Thiamine HCl 100 MG in Dextrose 5 %-0.45 %... IV SCH (16:43)
[2021-12-29] MEDS: levETIRAcetam 500 MG/5 ML VIAL SLOW IVP SCH ×2 (09:01→20:45)
[2021-12-29] MEDS ORDERED: Lorazepam 2 MG/ML VIAL SLOW IVP PRN (13:40)
[2021-12-29] MEDS: Multivitamins, Adult 10 ML, Folic Acid 1 MG, Thiamine HCl 100 MG in Dextrose 5 %-0.45 %... IV SCH (16:23)
[2021-12-30] MEDS ORDERED: Haloperidol Lactate 5 MG/ML VIAL IM SCH ×2 (00:15→23:45)
[2021-12-30] MEDS: levETIRAcetam 500 MG/5 ML VIAL SLOW IVP SCH ×2 (07:57→21:31)
[2021-12-30] MEDS: Multivitamins, Adult 10 ML, Folic Acid 1 MG, Thiamine HCl 100 MG in Dextrose 5 %-0.45 %... IV SCH (17:45)
[2021-12-30] MEDS: Acetaminophen 325 MG TAB PO PRN (18:16)
[2021-12-30] MEDS ORDERED: levETIRAcetam 500 MG TAB PO SCH (20:30)
[2021-12-31] MEDS ORDERED: Sterile Water 10 ML VIAL FS PRN (03:00)
[2021-12-31] MEDS ORDERED: OLANZapine 10 MG VIAL IM SCH (03:00)
[2021-12-31 05:17] LABS: #Basophils 0.1 thou/uL (0.0-0.2); #Eosinphils 0.3 thou/uL (0.0-0.7); #Lymphocytes 3.8 thou/uL (1.20-3.40); #Monocytes 1.2 thou/uL (0.11-0.59); #Neutrophils 7.1 thou/uL (1.40-6.50); %Basophils 0.6 % (0.0-1.0); %Eosinophils 2.7 % (0.0-10.0); %Lymphocytes 30.8 % (21.0-51.0); %Monocytes 9.3 % (0.0-10.0); %Neutrophils 56.6 % (42.0-75.0); Hemoglobin 14.8 g/dL (14.0-18.0); Mean Corpuscular Hemoglobin 28.9 pg (27.0-31.0); Mean Corpuscular Volume 87.7 fL (78.0-98.0); Mean Platelet Volume 7.9 fL (7.4-10.4); Platelet Count 288 thou/uL (130-400); RBC Distribution Width 12.1 % (11.5-14.5); Red Blood Cell (RBC) Count 5.12 mill/uL (4.70-6.10); White Blood Cell (WBC) Count 12.5 thou/uL (4.8-10.8)
[2021-12-31 05:30] LABS: ALT (SGPT) 39 U/L (8-55); AST (SGOT) 50 U/L (5-34); Albumin 4.6 g/dL (3.4-4.8); Alkaline Phosphatase 107 U/L (40-110); Anion Gap 16 mmol/L (10-20); BUN (Urea Nitrogen) 28 mg/dL (8.4-25.7); Bilirubin, Total 1.3 mg/dL (0.2-1.2); Calc. Creatinine Clearance 63 mL/min (70-130); Carbon Dioxide 22 mmol/L (23-31); Chloride 104 mmol/L (98-107); Estimated GFR 64; Glucose 99 mg/dL (80-115); Potassium 4.1 mmol/L (3.5-5.1); Protein, Total 7.6 g/dL (5.8-8.1); Sodium 138 mmol/L (136-145)
[2021-12-31] MEDS: levETIRAcetam 500 MG/5 ML VIAL SLOW IVP SCH ×2 (09:44→20:52)
[2021-12-31] MEDS ORDERED: LORazepam 2 MG/ML SYR.(CARPUJECT) IVP PRN (09:57)
[2021-12-31] MEDS: Multivitamins, Adult 10 ML, Folic Acid 1 MG, Thiamine HCl 100 MG in Dextrose 5 %-0.45 %... IV SCH ×2 (15:52→20:57)
[2021-12-31] MEDS: Lorazepam 2 MG/ML VIAL SLOW IVP PRN (21:36)
[2022-01-01] MEDS: levETIRAcetam 500 MG/5 ML VIAL SLOW IVP SCH ×2 (08:30→22:03)
[2022-01-01] MEDS: Multivitamins, Adult 10 ML, Folic Acid 1 MG, Thiamine HCl 100 MG in Dextrose 5 %-0.45 %... IV SCH (15:15)
[2022-01-02] MEDS: levETIRAcetam 500 MG/5 ML VIAL SLOW IVP SCH ×2 (08:17→19:58)
[2022-01-02] MEDS: Multivitamins, Adult 10 ML, Folic Acid 1 MG, Thiamine HCl 100 MG in Dextrose 5 %-0.45 %... IV SCH (14:12)
[2022-01-02] MEDS: Lorazepam 2 MG/ML VIAL SLOW IVP PRN (19:58)
[2022-01-03] MEDS: levETIRAcetam 500 MG/5 ML VIAL SLOW IVP SCH ×2 (09:13→21:52)
[2022-01-03] MEDS: Lorazepam 2 MG/ML VIAL SLOW IVP PRN ×2 (11:26→17:04)
[2022-01-03] MEDS: Multivitamins, Adult 10 ML, Folic Acid 1 MG, Thiamine HCl 100 MG in Dextrose 5 %-0.45 %... IV SCH (15:38)
[2022-01-03] MEDS ORDERED: Lorazepam 2 MG/ML VIAL SLOW IVP SCH (19:45)
[2022-01-04] MEDS: Lorazepam 2 MG/ML VIAL SLOW IVP PRN ×3 (03:10→22:06)
[2022-01-04] MEDS: levETIRAcetam 500 MG/5 ML VIAL SLOW IVP SCH ×2 (08:48→20:31)
[2022-01-04] MEDS: Multivitamins, Adult 10 ML, Folic Acid 1 MG, Thiamine HCl 100 MG in Dextrose 5 %-0.45 %... IV SCH (15:04)
[2022-01-04] MEDS: Polyethylene Glycol 3350 17 GM Packet PO SCH (22:26)
[2022-01-04] MEDS: Senokot S 8.6-50 MG TAB PO SCH (22:27)
[2022-01-05] MEDS: Acetaminophen 325 MG TAB PO PRN ×2 (04:09→20:38)
[2022-01-05] MEDS: levETIRAcetam 500 MG/5 ML VIAL SLOW IVP SCH ×2 (09:23→20:33)
[2022-01-05] MEDS: Senokot S 8.6-50 MG TAB PO SCH ×2 (09:24→20:33)
[2022-01-05] MEDS: Lorazepam 2 MG/ML VIAL SLOW IVP PRN (15:26)
[2022-01-05] MEDS: Multivitamins, Adult 10 ML, Folic Acid 1 MG, Thiamine HCl 100 MG in Dextrose 5 %-0.45 %... IV SCH (15:30)
[2022-01-05] MEDS: Polyethylene Glycol 3350 17 GM Packet PO SCH (20:33)
[2022-01-06] MEDS: Lorazepam 2 MG/ML VIAL SLOW IVP PRN (02:11)
[2022-01-06] MEDS: Senokot S 8.6-50 MG TAB PO SCH ×2 (10:36→19:58)
[2022-01-06] MEDS: levETIRAcetam 500 MG/5 ML VIAL SLOW IVP SCH ×2 (10:36→19:58)
[2022-01-06] MEDS: Multivitamins, Adult 10 ML, Folic Acid 1 MG, Thiamine HCl 100 MG in Dextrose 5 %-0.45 %... IV SCH (16:16)
[2022-01-06] MEDS: Polyethylene Glycol 3350 17 GM Packet PO SCH (19:59)
[2022-01-07] MEDS: Lorazepam 2 MG/ML VIAL SLOW IVP PRN ×3 (01:28→18:03)
[2022-01-07] MEDS: levETIRAcetam 500 MG/5 ML VIAL SLOW IVP SCH ×2 (08:25→20:56)
[2022-01-07] MEDS: Senokot S 8.6-50 MG TAB PO SCH ×3 (08:26→20:56)
[2022-01-07] MEDS: Multivitamins, Adult 10 ML, Folic Acid 1 MG, Thiamine HCl 100 MG in Dextrose 5 %-0.45 %... IV SCH (15:40)
[2022-01-07] MEDS: Polyethylene Glycol 3350 17 GM Packet PO SCH (20:56)
[2022-01-08] MEDS: Lorazepam 2 MG/ML VIAL SLOW IVP PRN (01:57)
[2022-01-08] MEDS: Senokot S 8.6-50 MG TAB PO SCH ×2 (08:25→20:40)
[2022-01-08] MEDS: levETIRAcetam 500 MG/5 ML VIAL SLOW IVP SCH ×2 (08:25→20:40)
[2022-01-08] MEDS: Multivitamins, Adult 10 ML, Folic Acid 1 MG, Thiamine HCl 100 MG in Dextrose 5 %-0.45 %... IV SCH (16:30)
[2022-01-08] MEDS: Polyethylene Glycol 3350 17 GM Packet PO SCH (20:40)
[2022-01-09] MEDS: Senokot S 8.6-50 MG TAB PO SCH ×2 (08:32→22:06)
[2022-01-09] MEDS: levETIRAcetam 500 MG/5 ML VIAL SLOW IVP SCH ×2 (08:32→22:07)
[2022-01-09] MEDS: Multivitamins, Adult 10 ML, Folic Acid 1 MG, Thiamine HCl 100 MG in Dextrose 5 %-0.45 %... IV SCH (15:24)
[2022-01-09] MEDS: Polyethylene Glycol 3350 17 GM Packet PO SCH (22:07)
[2022-01-10] MEDS: Lorazepam 2 MG/ML VIAL SLOW IVP PRN (01:57)
[2022-01-10] MEDS: Senokot S 8.6-50 MG TAB PO SCH ×2 (08:37→21:15)
[2022-01-10] MEDS: levETIRAcetam 500 MG/5 ML VIAL SLOW IVP SCH ×2 (08:37→21:14)
[2022-01-10] MEDS: Multivitamins, Adult 10 ML, Folic Acid 1 MG, Thiamine HCl 100 MG in Dextrose 5 %-0.45 %... IV SCH (15:38)
[2022-01-10] MEDS: Polyethylene Glycol 3350 17 GM Packet PO SCH (21:14)
[2022-01-11 06:28] LABS: #Basophils 0.1 thou/uL (0.0-0.2); #Eosinphils 0.3 thou/uL (0.0-0.7); #Monocytes 1.3 thou/uL (0.11-0.59); #Neutrophils 5.2 thou/uL (1.40-6.50); %Basophils 0.8 % (0.0-1.0); %Eosinophils 2.9 % (0.0-10.0); %Lymphocytes 36.6 % (21.0-51.0); %Monocytes 11.6 % (0.0-10.0); Hemoglobin 14.9 g/dL (14.0-18.0); Mean Corpuscular HGB CONC 32.3 g/dL (32.0-36.0); Mean Corpuscular Hemoglobin 28.5 pg (27.0-31.0); Mean Platelet Volume 8.4 fL (7.4-10.4); Platelet Count 345 thou/uL (130-400); RBC Distribution Width 12.2 % (11.5-14.5); Red Blood Cell (RBC) Count 5.23 mill/uL (4.70-6.10); White Blood Cell (WBC) Count 10.8 thou/uL (4.8-10.8)
[2022-01-11 06:46] LABS: Anion Gap 15 mmol/L (10-20); BUN (Urea Nitrogen) 17 mg/dL (8.4-25.7); Calc. Creatinine Clearance 63 mL/min (70-130); Calcium 9.8 mg/dL (7.8-10.44); Carbon Dioxide 24 mmol/L (23-31); Chloride 101 mmol/L (98-107); Estimated GFR 64; Glucose 80 mg/dL (80-115); Potassium 4.1 mmol/L (3.5-5.1); Sodium 136 mmol/L (136-145)
[2022-01-11] MEDS ORDERED: Non-Formulary Item 1 EACH (Levothyroxine Sodium [Levothyroxine] 175 MCG Capsule) PO SCH (09:00)
[2022-01-11] MEDS: levETIRAcetam 500 MG/5 ML VIAL SLOW IVP SCH ×2 (09:46→20:30)
[2022-01-11] MEDS: Senokot S 8.6-50 MG TAB PO SCH ×2 (09:46→20:30)
[2022-01-11] MEDS: Multivitamins, Adult 10 ML, Folic Acid 1 MG, Thiamine HCl 100 MG in Dextrose 5 %-0.45 %... IV SCH (15:31)
[2022-01-11] MEDS: Polyethylene Glycol 3350 17 GM Packet PO SCH (20:30)
[2022-01-12] MEDS: Acetaminophen 325 MG TAB PO PRN (00:29)
[2022-01-12] MEDS: Levothyroxine 175 MCG TAB PO SCH (05:24)
[2022-01-12] MEDS: Senokot S 8.6-50 MG TAB PO SCH ×2 (08:26→20:12)
[2022-01-12] MEDS: levETIRAcetam 500 MG/5 ML VIAL SLOW IVP SCH (08:27)
[2022-01-12] MEDS: Multivitamins, Adult 10 ML, Folic Acid 1 MG, Thiamine HCl 100 MG in Dextrose 5 %-0.45 %... IV SCH (17:13)
[2022-01-12] MEDS: levETIRAcetam 500 MG TAB PO SCH (20:12)
[2022-01-12] MEDS: Polyethylene Glycol 3350 17 GM Packet PO SCH (20:12)
[2022-01-12] MEDS ORDERED: Sterile Water 10 ML VIAL FS PRN (22:45)
[2022-01-12] MEDS ORDERED: OLANZapine 10 MG VIAL IM SCH (22:45)
[2022-01-12] MEDS ORDERED: Lorazepam 2 MG/ML VIAL SLOW IVP SCH ×2 (23:00→23:15)
[2022-01-13] MEDS: Levothyroxine 175 MCG TAB PO SCH (06:23)
[2022-01-13] MEDS: Senokot S 8.6-50 MG TAB PO SCH ×2 (09:40→19:53)
[2022-01-13] MEDS: levETIRAcetam 500 MG TAB PO SCH ×2 (09:40→19:53)
[2022-01-13] MEDS: Polyethylene Glycol 3350 17 GM Packet PO SCH (19:53)
[2022-01-14] MEDS: Acetaminophen 325 MG TAB PO PRN (00:52)
[2022-01-14] MEDS: Levothyroxine 175 MCG TAB PO SCH (06:00)
[2022-01-14] MEDS: levETIRAcetam 500 MG TAB PO SCH ×2 (08:25→19:45)
[2022-01-14] MEDS: Senokot S 8.6-50 MG TAB PO SCH ×2 (08:25→19:45)
[2022-01-14] MEDS: Polyethylene Glycol 3350 17 GM Packet PO SCH (19:45)
[2022-01-15] MEDS: Levothyroxine 175 MCG TAB PO SCH (05:26)
[2022-01-15] MEDS: Senokot S 8.6-50 MG TAB PO SCH ×2 (07:52→20:02)
[2022-01-15] MEDS: levETIRAcetam 500 MG TAB PO SCH ×2 (07:52→20:02)
[2022-01-15] MEDS: Acetaminophen 325 MG TAB PO PRN (13:19)
[2022-01-15] MEDS: Polyethylene Glycol 3350 17 GM Packet PO SCH (20:03)
[2022-01-15] MEDS ORDERED: Lorazepam 2 MG/ML VIAL SLOW IVP SCH (23:59)
[2022-01-15] MEDS ORDERED: Lorazepam 1 MG TAB PO SCH (23:59)
[2022-01-16] MEDS: Levothyroxine 175 MCG TAB PO SCH (05:36)
[2022-01-16] MEDS: levETIRAcetam 500 MG TAB PO SCH ×2 (08:01→20:27)
[2022-01-16] MEDS: Senokot S 8.6-50 MG TAB PO SCH ×2 (08:01→20:28)
[2022-01-16] MEDS: Polyethylene Glycol 3350 17 GM Packet PO SCH (20:28)
[2022-01-17] MEDS: Acetaminophen 325 MG TAB PO PRN (01:14)
[2022-01-17] MEDS: Levothyroxine 175 MCG TAB PO SCH (05:34)
[2022-01-17] MEDS: levETIRAcetam 500 MG TAB PO SCH ×2 (08:07→20:57)
[2022-01-17] MEDS: Senokot S 8.6-50 MG TAB PO SCH ×2 (08:07→20:57)
[2022-01-17] MEDS: Polyethylene Glycol 3350 17 GM Packet PO SCH (20:56)
[2022-01-17] MEDS ORDERED: OLANZapine 10 MG VIAL IM SCH (21:45)
[2022-01-18] MEDS: Levothyroxine 175 MCG TAB PO SCH (06:34)
[2022-01-18] MEDS: Senokot S 8.6-50 MG TAB PO SCH ×2 (09:35→21:03)
[2022-01-18] MEDS: levETIRAcetam 500 MG TAB PO SCH ×2 (09:38→21:03)
[2022-01-18] MEDS: Polyethylene Glycol 3350 17 GM Packet PO SCH (21:03)
[2022-01-19] MEDS: Acetaminophen 325 MG TAB PO PRN (00:41)
[2022-01-19] MEDS: Levothyroxine 175 MCG TAB PO SCH (06:08)
[2022-01-19] MEDS: levETIRAcetam 500 MG TAB PO SCH ×2 (09:06→20:20)
[2022-01-19] MEDS: Senokot S 8.6-50 MG TAB PO SCH ×3 (09:06→20:20)
[2022-01-19] MEDS ORDERED: Albuterol Sulfate 1.25 MG/3 ML NEB NEB PRN (13:26)
[2022-01-19] MEDS: Polyethylene Glycol 3350 17 GM Packet PO SCH (20:20)
[2022-01-19] MEDS ORDERED: OLANZapine 10 MG VIAL IM SCH (23:15)
[2022-01-19] MEDS ORDERED: Sterile Water 10 ML VIAL FS PRN (23:15)
[2022-01-20] MEDS: Acetaminophen 325 MG TAB PO PRN ×2 (00:25→19:28)
[2022-01-20] MEDS: Levothyroxine 175 MCG TAB PO SCH (05:23)
[2022-01-20] MEDS: Senokot S 8.6-50 MG TAB PO SCH ×2 (11:49→19:24)
[2022-01-20] MEDS: levETIRAcetam 500 MG TAB PO SCH ×2 (11:49→19:25)
[2022-01-20] MEDS: Polyethylene Glycol 3350 17 GM Packet PO SCH (19:24)
[2022-01-21] MEDS: Levothyroxine 175 MCG TAB PO SCH (05:50)
[2022-01-21] MEDS: Acetaminophen 325 MG TAB PO PRN ×2 (05:50→20:36)
[2022-01-21] MEDS: levETIRAcetam 500 MG TAB PO SCH ×2 (09:18→20:35)
[2022-01-21] MEDS: Senokot S 8.6-50 MG TAB PO SCH ×2 (09:18→20:34)
[2022-01-21] MEDS: Polyethylene Glycol 3350 17 GM Packet PO SCH (20:39)
[2022-01-22] MEDS ORDERED: Lorazepam 1 MG TAB PO SCH (01:15)
[2022-01-22] MEDS: Acetaminophen 325 MG TAB PO PRN ×2 (01:27→20:23)
[2022-01-22] MEDS: Levothyroxine 175 MCG TAB PO SCH (05:44)
[2022-01-22 06:54] LABS: Hemoglobin 13.5 g/dL (14.0-18.0); Mean Corpuscular HGB CONC 32.8 g/dL (32.0-36.0); Mean Corpuscular Hemoglobin 29.2 pg (27.0-31.0); Mean Corpuscular Volume 88.9 fl (78.0-98.0); Mean Platelet Volume 8.4 fL (7.4-10.4); Platelet Count 265 thou/uL (130-400); RBC Distribution Width 12.4 % (11.5-14.5); Red Blood Cell (RBC) Count 4.63 mill/uL (4.70-6.10); White Blood Cell (WBC) Count 9.5 thou/uL (4.8-10.8)
[2022-01-22 07:13] LABS: Anion Gap 11 mmol/L (10-20); BUN (Urea Nitrogen) 27 mg/dL (8.4-25.7); Calc. Creatinine Clearance 68 mL/min (70-130); Carbon Dioxide 29 mmol/L (23-31); Chloride 102 mmol/L (98-107); Estimated GFR 70; Glucose 94 mg/dL (80-115); Potassium 4.1 mmol/L (3.5-5.1); Sodium 138 mmol/L (136-145)
[2022-01-22] MEDS: Senokot S 8.6-50 MG TAB PO SCH ×2 (08:53→20:23)
[2022-01-22] MEDS: levETIRAcetam 500 MG TAB PO SCH ×2 (08:53→20:15)
[2022-01-22] MEDS: Polyethylene Glycol 3350 17 GM Packet PO SCH (20:15)
[2022-01-23] MEDS ORDERED: Ondansetron ODT 4 MG TAB PO PRN (03:38)
[2022-01-23] MEDS ORDERED: OLANZapine 10 MG VIAL IM SCH (04:00)
[2022-01-23] MEDS: Levothyroxine 175 MCG TAB PO SCH (06:04)
[2022-01-23] MEDS: levETIRAcetam 500 MG TAB PO SCH ×2 (08:43→20:52)
[2022-01-23] MEDS: Senokot S 8.6-50 MG TAB PO SCH ×2 (08:43→20:51)
[2022-01-23] MEDS: Acetaminophen 325 MG TAB PO PRN (20:49)
[2022-01-23] MEDS: Polyethylene Glycol 3350 17 GM Packet PO SCH (21:31)
[2022-01-24] MEDS: Acetaminophen 325 MG TAB PO PRN ×2 (00:52→14:27)
[2022-01-24] MEDS: Levothyroxine 175 MCG TAB PO SCH (05:56)
[2022-01-24] MEDS: Senokot S 8.6-50 MG TAB PO SCH ×2 (09:09→20:40)
[2022-01-24] MEDS: levETIRAcetam 500 MG TAB PO SCH ×2 (09:09→20:40)
[2022-01-24] MEDS: Polyethylene Glycol 3350 17 GM Packet PO SCH (20:40)
[2022-01-25] MEDS: Levothyroxine 175 MCG TAB PO SCH (06:05)
[2022-01-25] MEDS: Acetaminophen 325 MG TAB PO PRN (08:04)
[2022-01-25] MEDS: Senokot S 8.6-50 MG TAB PO SCH (08:04)
[2022-01-25] MEDS: levETIRAcetam 500 MG TAB PO SCH (08:05)
[2022-01-26 02:47] VITALS: BP 117/68; TEMP 98.2
== END 2022-01-25 15:25 | DRG 917 ==
LOC: NEURO 22:45 → OBSVTOIN 12-25 03:52 → T4-A 01-01 18:45
PROVIDERS: ADMIT Internal Medicine; ATTEND Internal Medicine
DX: T43.621A Poisoning by amphetamines, accidental (unintentional), initial encounter (principal); G92.8 Other toxic encephalopathy; R45.851 Suicidal ideations; F03.911 Unspecified dementia, unspecified severity, with agitation; F05 Delirium due to known physiological condition; G40.909 Epilepsy, unspecified, not intractable, without status epilepticus; Z20.822 Contact with and (suspected) exposure to COVID-19; J44.9 Chronic obstructive pulmonary disease, unspecified; E78.5 Hyperlipidemia, unspecified; D64.9 Anemia, unspecified; F15.10 Other stimulant abuse, uncomplicated; F17.210 Nicotine dependence, cigarettes, uncomplicated; F12.10 Cannabis abuse, uncomplicated; R29.6 Repeated falls; E89.0 Postprocedural hypothyroidism; I34.0 Nonrheumatic mitral (valve) insufficiency; Z78.1 Physical restraint status; Z28.21 Immunization not carried out because of patient refusal; Z87.442 Personal history of urinary calculi; Z71.51 Drug abuse counseling and surveillance of drug abuser; Z88.6 Allergy status to analgesic agent; Z88.5 Allergy status to narcotic agent; Z88.8 Allergy status to other drugs, medicaments and biological substances; Z79.899 Other long term (current) drug therapy; Z79.890 Hormone replacement therapy; Z91.81 History of falling; Z98.890 Other specified postprocedural states; Z82.61 Family history of arthritis; Z83.3 Family history of diabetes mellitus; Z82.49 Family history of ischemic heart disease and other diseases of the circulatory system
CPT/HCPCS: 36415; 36416; 70450; 80048; 80053; 84443; 85025; 85027; 87811; 93306; 95712; 95819; 95957; J1630; J1953; J2060; J2358; J3411; J7042; Q0162; U0003; U0005

== ENCOUNTER 2022-06-15 03:05 | Inpatient (IN) | payer MEDICARE, OTHER ==
[2022-06-15] MEDS ORDERED: Ketorolac Tromethamine 30 MG/ML VIAL ONE (03:22)
[2022-06-15] MEDS ORDERED: Vancomycin 1 GM/200 ML (FROZEN) BAG ONE (04:03)
[2022-06-15 05:34] LABS: Anion Gap 13 mmol/L (10-20); BUN (Urea Nitrogen) 22 mg/dL (8.4-25.7); Calc. Creatinine Clearance 0 mL/min (70-130); Calcium 8.4 mg/dL (7.8-10.44); Carbon Dioxide 23 mmol/L (23-31); Chloride 105 mmol/L (98-107); Estimated GFR 50; Glucose 85 mg/dL (80-115); Potassium 4.2 mmol/L (3.5-5.1); Sodium 137 mmol/L (136-145)
[2022-06-15] MEDS ORDERED: Ondansetron PF 4 MG/2 ML Vial IVP PRN (06:41)
[2022-06-15] MEDS ORDERED: Ipratropium/Albuterol 3 ML NEB EZPAP PRN (06:45)
[2022-06-15] MEDS ORDERED: Levothyroxine 175 MCG TAB PO SCH (07:00)
[2022-06-15] MEDS ORDERED: Sodium Chloride 0.9% 1,000 ML IV SCH (07:15)
[2022-06-15 10:39] LABS: Bilirubin Negative (Negative); Blood, Urine 3+ (Negative); CAUTI Indications for Culture Acute Hematuria; Clarity Clear (Clear); Glucose, Urine (Dipstick) Normal (Negative); Ketone, Urine Trace mg/dL (Negative); Leukocyte 250 Leu/uL (Negative); Nitrite Negative (Negative); Protein, Urine (Dipstick) 30 mg/dL (Neg-Trace); RBC/HPF 21-50 HPF (0-3); Specific Gravity, Urine 1.031 (1.002-1.036); Squamous Epithelial 0-3 HPF (0-3); WBC/HPF Greater than 50 HPF (0-3); pH, Urine 5.5 (5.0-9.0)
[2022-06-15 10:40] LABS: Bacteria/HPF Rare-Few HPF (None Seen)
[2022-06-15 10:42] LABS: Urine Culture Reflex Yes Yes
[2022-06-15 11:32] VITALS: BMI 22.9
[2022-06-15] MEDS ORDERED: ALPRAZolam 0.25 MG TAB PO SCH (15:30)
[2022-06-15 16:24] LABS: #Eosinphils 0.2 thou/uL (0.0-0.7); #Lymphocytes 2.5 thou/uL (1.20-3.40); #Monocytes 0.8 thou/uL (0.11-0.59); #Neutrophils 6.9 thou/uL (1.40-6.50); %Basophils 0.3 % (0.0-1.0); %Eosinophils 1.5 % (0.0-10.0); %Lymphocytes 24.4 % (21.0-51.0); %Monocytes 7.4 % (0.0-10.0); %Neutrophils 66.5 % (42.0-75.0); Hemoglobin 13.6 g/dL (14.0-18.0); Mean Corpuscular Hemoglobin 28.6 pg (27.0-31.0); Mean Corpuscular Volume 86.8 fl (78.0-98.0); Mean Platelet Volume 7.9 fL (7.4-10.4); Platelet Count 203 10x3/uL (130-400); RBC Distribution Width 12.6 % (11.5-14.5); Red Blood Cell (RBC) Count 4.75 mill/uL (4.70-6.10); White Blood Cell (WBC) Count 10.3 10x3/uL (4.8-10.8)
[2022-06-15] MEDS ORDERED: Lorazepam 2 MG/ML VIAL IM PRN (16:27)
[2022-06-15] MEDS ORDERED: Ondansetron ODT 4 MG TAB PO PRN (16:27)
[2022-06-15] MEDS ORDERED: Electrolyte Replacement Protocol FS SCH (16:30)
[2022-06-15] MEDS: Lorazepam 1 MG TAB PO PRN ×2 (16:42→20:00)
[2022-06-15] MEDS: Thiamine HCl 200 MG/2 ML VIAL SLOW IVP SCH (16:42)
[2022-06-15] MEDS: Lorazepam 1 MG TAB PO SCH ×2 (18:21→23:33)
[2022-06-15] MEDS ORDERED: Haloperidol Lactate 5 MG/ML VIAL IM SCH (19:00)
[2022-06-15] MEDS: Heparin 5,000 UNITS/ML VIAL SC SCH (20:00)
[2022-06-16] MEDS: cefTRIAXone\\ROCEPHIN 1 GM in Sodium Chloride 0.9% 100 ML IVPB SCH (00:41)
[2022-06-16] MEDS: Lorazepam 2 MG/ML VIAL SLOW IVP PRN ×3 (01:43→21:04)
[2022-06-16] MEDS: Lorazepam 1 MG TAB PO SCH ×3 (06:00→19:15)
[2022-06-16] MEDS: Levothyroxine 175 MCG TAB PO SCH (06:00)
[2022-06-16 06:05] LABS: #Eosinphils 0.2 thou/uL (0.0-0.7); #Monocytes 0.9 thou/uL (0.11-0.59); #Neutrophils 7.6 thou/uL (1.40-6.50); %Basophils 0.4 % (0.0-1.0); %Eosinophils 1.6 % (0.0-10.0); %Lymphocytes 25.6 % (21.0-51.0); %Monocytes 7.9 % (0.0-10.0); %Neutrophils 64.4 % (42.0-75.0); Mean Corpuscular HGB CONC 32.7 g/dL (32.0-36.0); Mean Corpuscular Hemoglobin 28.6 pg (27.0-31.0); Mean Corpuscular Volume 87.5 fl (78.0-98.0); Mean Platelet Volume 7.8 fL (7.4-10.4); Platelet Count 241 10x3/uL (130-400); RBC Distribution Width 12.7 % (11.5-14.5); Red Blood Cell (RBC) Count 4.88 mill/uL (4.70-6.10); White Blood Cell (WBC) Count 11.7 10x3/uL (4.8-10.8)
[2022-06-16 06:13] LABS: Anion Gap 16 mmol/L (10-20); BUN (Urea Nitrogen) 26 mg/dL (8.4-25.7); Calc. Creatinine Clearance 48 mL/min (70-130); Calcium 8.9 mg/dL (7.8-10.44); Carbon Dioxide 19 mmol/L (23-31); Chloride 106 mmol/L (98-107); Estimated GFR 45; Glucose 94 mg/dL (80-115); Potassium 4.2 mmol/L (3.5-5.1); Sodium 137 mmol/L (136-145)
[2022-06-16] MEDS ORDERED: ALPRAZolam 0.25 MG TAB PO SCH (09:00)
[2022-06-16] MEDS ORDERED: FLU VACC QS2022-23(65YR UP)/PF 240 MCG/0.7 ML SYRINGE IM ONE (09:00)
[2022-06-16] MEDS: Sodium Chloride 0.9% 1,000 ML IV SCH ×2 (10:10→19:15)
[2022-06-16] MEDS: Heparin 5,000 UNITS/ML VIAL SC SCH ×2 (10:11→20:27)
[2022-06-16] MEDS: Folic Acid 1 MG TAB PO SCH (14:48)
[2022-06-16] MEDS: Multivit, Therapeutic 1 TAB PO SCH (14:48)
[2022-06-16] MEDS ORDERED: Lorazepam 1 MG TAB PO PRN (16:27)
[2022-06-16] MEDS ORDERED: Aspirin 300 MG Suppository PR SCH (16:45)
[2022-06-16] MEDS: Thiamine HCl 200 MG/2 ML VIAL SLOW IVP SCH (17:38)
[2022-06-16] MEDS: Dextrose 5 % And 0.9 % NaCl 1,000 ML IV SCH (19:47)
[2022-06-17] MEDS: Lorazepam 1 MG TAB PO SCH ×4 (01:35→18:14)
[2022-06-17] MEDS: cefTRIAXone\\ROCEPHIN 1 GM in Sodium Chloride 0.9% 100 ML IVPB SCH (01:39)
[2022-06-17] MEDS: Dextrose 5 % And 0.9 % NaCl 1,000 ML IV SCH ×2 (04:57→16:10)
[2022-06-17] MEDS: Levothyroxine 175 MCG TAB PO SCH (05:55)
[2022-06-17] MEDS: Lorazepam 0.5 MG TAB PO SCH ×3 (05:57→18:15)
[2022-06-17 06:11] LABS: Band 1 % (5-11); Eosinophils 4 % (0-10); Hemoglobin 11.1 g/dL (14.0-18.0); Lymphocytes 36 % (21-51); MDiff Complete? YES; Mean Corpuscular HGB CONC 33.6 g/dL (32.0-36.0); Mean Corpuscular Volume 89.3 fl (78.0-98.0); Monocytes 7 % (0-10); Neutrophil 52 % (42-75); Ovalocytes SLIGHT = 2-5 cells (100X) (0-1/hpf); Platelet Count 180 10x3/uL (130-400); Platelet Morphology Comment Appears Adequate; Polychromasia SLIGHT = 2-3 cells (100X) (0-2/hpf); RBC Distribution Width 12.7 % (11.5-14.5); Red Blood Cell (RBC) Count 3.68 mill/uL (4.70-6.10); White Blood Cell (WBC) Count 8.2 10x3/uL (4.8-10.8)
[2022-06-17 06:13] LABS: Anion Gap 8 mmol/L (10-20); BUN (Urea Nitrogen) 13 mg/dL (8.4-25.7); Calc. Creatinine Clearance 60 mL/min (70-130); Calcium 5.1 mg/dL (7.8-10.44); Carbon Dioxide 13 mmol/L (23-31); Chloride 123 mmol/L (98-107); Estimated GFR 59; Glucose 1514 mg/dL (80-115); Potassium 2.3 mmol/L (3.5-5.1); Sodium 142 mmol/L (136-145)
[2022-06-17 07:45] LABS: Anion Gap 11 mmol/L (10-20); BUN (Urea Nitrogen) 20 mg/dL (8.4-25.7); Calc. Creatinine Clearance 61 mL/min (70-130); Calcium 8.7 mg/dL (7.8-10.44); Carbon Dioxide 22 mmol/L (23-31); Chloride 108 mmol/L (98-107); Estimated GFR 61; Glucose 104 mg/dL (80-115); Sodium 137 mmol/L (136-145)
[2022-06-17] MEDS ORDERED: Potassium Chloride 20 MEQ in Premix Bag 1 BAG IVPB SCH (08:00)
[2022-06-17] MEDS: Heparin 5,000 UNITS/ML VIAL SC SCH ×2 (08:36→20:02)
[2022-06-17] MEDS: Aspirin 300 MG Suppository PR SCH (12:12)
[2022-06-17] MEDS: Folic Acid 1 MG TAB PO SCH (16:12)
[2022-06-17] MEDS: Multivit, Therapeutic 1 TAB PO SCH (16:12)
[2022-06-17] MEDS ORDERED: Lorazepam 1 MG TAB PO PRN (16:27)
[2022-06-17] MEDS: Thiamine HCl 200 MG/2 ML VIAL SLOW IVP SCH (17:46)
[2022-06-17] MEDS: Lorazepam 2 MG/ML VIAL SLOW IVP PRN (19:43)
[2022-06-18] MEDS: cefTRIAXone\\ROCEPHIN 1 GM in Sodium Chloride 0.9% 100 ML IVPB SCH (00:48)
[2022-06-18] MEDS: Dextrose 5 % And 0.9 % NaCl 1,000 ML IV SCH ×2 (01:35→12:11)
[2022-06-18] MEDS: Lorazepam 2 MG/ML VIAL SLOW IVP PRN (04:14)
[2022-06-18] MEDS: Levothyroxine 175 MCG TAB PO SCH (05:44)
[2022-06-18 06:36] LABS: #Eosinphils 0.3 thou/uL (0.0-0.7); #Lymphocytes 3.1 thou/uL (1.20-3.40); #Monocytes 0.9 thou/uL (0.11-0.59); #Neutrophils 5.4 thou/uL (1.40-6.50); %Basophils 0.5 % (0.0-1.0); %Eosinophils 2.9 % (0.0-10.0); %Lymphocytes 32.1 % (21.0-51.0); %Neutrophils 55.5 % (42.0-75.0); Mean Corpuscular HGB CONC 33.2 g/dL (32.0-36.0); Mean Corpuscular Hemoglobin 28.9 pg (27.0-31.0); Mean Corpuscular Volume 87.1 fl (78.0-98.0); Mean Platelet Volume 7.6 fL (7.4-10.4); Platelet Count 240 10x3/uL (130-400); RBC Distribution Width 12.6 % (11.5-14.5); Red Blood Cell (RBC) Count 4.85 mill/uL (4.70-6.10); White Blood Cell (WBC) Count 9.7 10x3/uL (4.8-10.8)
[2022-06-18 06:51] LABS: Anion Gap 15 mmol/L (10-20); BUN (Urea Nitrogen) 15 mg/dL (8.4-25.7); Calc. Creatinine Clearance 69 mL/min (70-130); Carbon Dioxide 19 mmol/L (23-31); Cardiac Risk 4.1 (Less than 4.5); Chloride 109 mmol/L (98-107); Cholesterol 223 mg/dl (< 200 Desired); Estimated GFR 70; Glucose 136 mg/dL (80-115); HDL Cholesterol 55 mg/dL (>60 Neg Risk); LDL Cholesterol, Calculated 151 mg/dL; Sodium 139 mmol/L (136-145); Triglycerides 84 mg/dL (Less than 150)
[2022-06-18] MEDS: Aspirin 300 MG Suppository PR SCH (10:03)
[2022-06-18] MEDS: Folic Acid 1 MG TAB PO SCH (10:03)
[2022-06-18] MEDS: Multivit, Therapeutic 1 TAB PO SCH (10:03)
[2022-06-18] MEDS: Heparin 5,000 UNITS/ML VIAL SC SCH ×2 (10:03→21:40)
[2022-06-18] MEDS: Dextrose 5%-Lactated Ringers 1,000 ML IV SCH (13:13)
[2022-06-18] MEDS ORDERED: Lorazepam 0.5 MG TAB PO PRN (16:27)
[2022-06-18] MEDS: Acetaminophen 325 MG TAB PO PRN (17:46)
[2022-06-18] MEDS: Thiamine 100 MG TAB PO SCH (17:46)
[2022-06-18] MEDS: Atorvastatin Calcium 40 MG TAB PO SCH (21:40)
[2022-06-19] MEDS: cefTRIAXone\\ROCEPHIN 1 GM in Sodium Chloride 0.9% 100 ML IVPB SCH (00:37)
[2022-06-19 05:34] LABS: #Basophils 0.1 thou/uL (0.0-0.2); #Eosinphils 0.3 thou/uL (0.0-0.7); #Lymphocytes 3.8 thou/uL (1.20-3.40); #Monocytes 0.9 thou/uL (0.11-0.59); #Neutrophils 5.2 thou/uL (1.40-6.50); %Basophils 0.7 % (0.0-1.0); %Eosinophils 2.8 % (0.0-10.0); %Lymphocytes 36.7 % (21.0-51.0); %Monocytes 9.1 % (0.0-10.0); %Neutrophils 50.8 % (42.0-75.0); Hemoglobin 15.1 g/dL (14.0-18.0); Mean Corpuscular Hemoglobin 29.5 pg (27.0-31.0); Mean Platelet Volume 7.6 fL (7.4-10.4); Platelet Count 264 10x3/uL (130-400); RBC Distribution Width 12.7 % (11.5-14.5); White Blood Cell (WBC) Count 10.2 10x3/uL (4.8-10.8)
[2022-06-19 05:56] LABS: Anion Gap 15 mmol/L (10-20); BUN (Urea Nitrogen) 14 mg/dL (8.4-25.7); Calc. Creatinine Clearance 65 mL/min (70-130); Calcium 9.5 mg/dL (7.8-10.44); Carbon Dioxide 21 mmol/L (23-31); Chloride 106 mmol/L (98-107); Estimated GFR 65; Glucose 121 mg/dL (80-115); Potassium 4.2 mmol/L (3.5-5.1); Sodium 138 mmol/L (136-145)
[2022-06-19 06:14] LABS: Free T4 (Free Thyroxine) 0.64 ng/dL (0.70-1.48)
[2022-06-19] MEDS: Levothyroxine 175 MCG TAB PO SCH (06:22)
[2022-06-19] MEDS: Aspirin 300 MG Suppository PR SCH (09:22)
[2022-06-19] MEDS: Heparin 5,000 UNITS/ML VIAL SC SCH ×2 (09:22→20:54)
[2022-06-19] MEDS: Multivit, Therapeutic 1 TAB PO SCH (09:23)
[2022-06-19] MEDS: Folic Acid 1 MG TAB PO SCH (09:23)
[2022-06-19] MEDS: Dextrose 5%-Lactated Ringers 1,000 ML IV SCH ×2 (09:38→18:17)
[2022-06-19] MEDS: Thiamine 100 MG TAB PO SCH (17:40)
[2022-06-19] MEDS: Acetaminophen 325 MG TAB PO PRN ×2 (18:33→22:27)
[2022-06-19] MEDS: Atorvastatin Calcium 40 MG TAB PO SCH (20:54)
[2022-06-19] MEDS: Lorazepam 2 MG/ML VIAL SLOW IVP PRN (23:45)
[2022-06-20] MEDS: cefTRIAXone\\ROCEPHIN 1 GM in Sodium Chloride 0.9% 100 ML IVPB SCH (01:38)
[2022-06-20] MEDS: Acetaminophen 325 MG TAB PO PRN (05:58)
[2022-06-20] MEDS: Levothyroxine 175 MCG TAB PO SCH (05:58)
[2022-06-20] MEDS: Multivit, Therapeutic 1 TAB PO SCH (09:19)
[2022-06-20] MEDS: Aspirin 300 MG Suppository PR SCH (09:19)
[2022-06-20] MEDS: Folic Acid 1 MG TAB PO SCH (09:19)
[2022-06-20] MEDS: Heparin 5,000 UNITS/ML VIAL SC SCH ×2 (09:32→20:17)
[2022-06-20] MEDS: Dextrose 5%-Lactated Ringers 1,000 ML IV SCH (17:00)
[2022-06-20] MEDS: Thiamine 100 MG TAB PO SCH ×2 (17:32→18:06)
[2022-06-20] MEDS: Atorvastatin Calcium 40 MG TAB PO SCH (20:17)
[2022-06-21] MEDS: Lorazepam 2 MG/ML VIAL SLOW IVP PRN (01:07)
[2022-06-21] MEDS: cefTRIAXone\\ROCEPHIN 1 GM in Sodium Chloride 0.9% 100 ML IVPB SCH (01:11)
[2022-06-21] MEDS: Levothyroxine 175 MCG TAB PO SCH (05:56)
[2022-06-21] MEDS: Multivit, Therapeutic 1 TAB PO SCH (09:37)
[2022-06-21] MEDS: Heparin 5,000 UNITS/ML VIAL SC SCH ×2 (09:37→20:50)
[2022-06-21] MEDS: Aspirin 81 mg Enteric Coated Tablet PO SCH (09:37)
[2022-06-21] MEDS: Folic Acid 1 MG TAB PO SCH (09:37)
[2022-06-21] MEDS: Dextrose 5%-Lactated Ringers 1,000 ML IV SCH (13:39)
[2022-06-21] MEDS: Thiamine 100 MG TAB PO SCH (17:22)
[2022-06-21] MEDS: QUEtiapine 25 MG TAB PO SCH (20:50)
[2022-06-21] MEDS: Atorvastatin Calcium 40 MG TAB PO SCH (20:50)
[2022-06-22] MEDS: Dextrose 5%-Lactated Ringers 1,000 ML IV SCH ×2 (02:44→09:11)
[2022-06-22] MEDS: Levothyroxine 175 MCG TAB PO SCH (06:25)
[2022-06-22] MEDS: Heparin 5,000 UNITS/ML VIAL SC SCH ×2 (09:01→20:36)
[2022-06-22] MEDS: Folic Acid 1 MG TAB PO SCH (09:01)
[2022-06-22] MEDS: Aspirin 81 mg Enteric Coated Tablet PO SCH (09:01)
[2022-06-22] MEDS: Multivit, Therapeutic 1 TAB PO SCH (09:01)
[2022-06-22] MEDS: Thiamine 100 MG TAB PO SCH (18:10)
[2022-06-22] MEDS ORDERED: Lorazepam 2 MG/ML VIAL IM SCH (20:15)
[2022-06-22] MEDS: QUEtiapine 25 MG TAB PO SCH (20:25)
[2022-06-22] MEDS: Atorvastatin Calcium 40 MG TAB PO SCH (20:25)
[2022-06-23 05:10] LABS: #Basophils 0.1 thou/uL (0.0-0.2); #Eosinphils 0.4 thou/uL (0.0-0.7); #Lymphocytes 3.5 thou/uL (1.20-3.40); #Monocytes 0.7 thou/uL (0.11-0.59); #Neutrophils 4.6 thou/uL (1.40-6.50); %Basophils 0.9 % (0.0-1.0); %Eosinophils 4.2 % (0.0-10.0); %Lymphocytes 37.5 % (21.0-51.0); %Neutrophils 49.4 % (42.0-75.0); Hemoglobin 14.3 g/dL (14.0-18.0); Mean Corpuscular HGB CONC 33.3 g/dL (32.0-36.0); Mean Corpuscular Hemoglobin 29.3 pg (27.0-31.0); Mean Platelet Volume 7.9 fL (7.4-10.4); Platelet Count 292 10x3/uL (130-400); RBC Distribution Width 12.9 % (11.5-14.5); Red Blood Cell (RBC) Count 4.88 mill/uL (4.70-6.10); White Blood Cell (WBC) Count 9.2 10x3/uL (4.8-10.8)
[2022-06-23 05:30] LABS: Anion Gap 14 mmol/L (10-20); BUN (Urea Nitrogen) 22 mg/dL (8.4-25.7); Calc. Creatinine Clearance 59 mL/min (70-130); Calcium 9.6 mg/dL (7.8-10.44); Carbon Dioxide 25 mmol/L (23-31); Chloride 105 mmol/L (98-107); Estimated GFR 58; Glucose 97 mg/dL (80-115); Magnesium 1.8 mg/dL (1.6-2.6); Phosphorus 3.6 mg/dL (2.3-4.7); Potassium 3.8 mmol/L (3.5-5.1); Sodium 140 mmol/L (136-145)
[2022-06-23] MEDS: Levothyroxine 175 MCG TAB PO SCH (05:59)
[2022-06-23] MEDS ORDERED: Ondansetron PF 4 MG/2 ML Vial IVP PRN (07:36)
[2022-06-23] MEDS ORDERED: Magnesium 2 GM/50 ML(in water) 2 GM in Premix Bag 1 BAG IVPB SCH (08:00)
[2022-06-23] MEDS: Heparin 5,000 UNITS/ML VIAL SC SCH ×2 (08:38→22:07)
[2022-06-23] MEDS: Aspirin 81 mg Enteric Coated Tablet PO SCH (08:38)
[2022-06-23] MEDS: Folic Acid 1 MG TAB PO SCH (08:38)
[2022-06-23] MEDS: Multivit, Therapeutic 1 TAB PO SCH (08:38)
[2022-06-23] MEDS: Thiamine 100 MG TAB PO SCH (16:27)
[2022-06-23] MEDS: Dextrose 5%-Lactated Ringers 1,000 ML IV SCH (16:27)
[2022-06-23] MEDS: QUEtiapine 25 MG TAB PO SCH (18:58)
[2022-06-23] MEDS ORDERED: QUEtiapine 25 MG TAB PO SCH (21:45)
[2022-06-23] MEDS: Atorvastatin Calcium 40 MG TAB PO SCH (22:07)
[2022-06-24] MEDS: Levothyroxine 175 MCG TAB PO SCH (07:35)
[2022-06-24] MEDS: Aspirin 81 mg Enteric Coated Tablet PO SCH (08:58)
[2022-06-24] MEDS: Multivit, Therapeutic 1 TAB PO SCH (08:58)
[2022-06-24] MEDS: Heparin 5,000 UNITS/ML VIAL SC SCH ×2 (08:58→21:48)
[2022-06-24] MEDS: Folic Acid 1 MG TAB PO SCH (08:58)
[2022-06-24] MEDS: Dextrose 5%-Lactated Ringers 1,000 ML IV SCH (08:59)
[2022-06-24 10:22] LABS: #Eosinphils 0.4 thou/uL (0.0-0.7); #Monocytes 0.7 thou/uL (0.11-0.59); #Neutrophils 5.4 thou/uL (1.40-6.50); %Basophils 0.4 % (0.0-1.0); %Eosinophils 3.9 % (0.0-10.0); %Lymphocytes 31.3 % (21.0-51.0); %Monocytes 7.2 % (0.0-10.0); %Neutrophils 57.1 % (42.0-75.0); Hemoglobin 14.3 g/dL (14.0-18.0); Mean Corpuscular HGB CONC 33.7 g/dL (32.0-36.0); Mean Corpuscular Hemoglobin 29.7 pg (27.0-31.0); Mean Corpuscular Volume 88.1 fl (78.0-98.0); Mean Platelet Volume 8.2 fL (7.4-10.4); Platelet Count 290 10x3/uL (130-400); RBC Distribution Width 12.9 % (11.5-14.5); White Blood Cell (WBC) Count 9.5 10x3/uL (4.8-10.8)
[2022-06-24 10:43] LABS: ALT (SGPT) 33 U/L (8-55); AST (SGOT) 29 U/L (5-34); Albumin 4.1 g/dL (3.4-4.8); Alkaline Phosphatase 90 U/L (40-110); Anion Gap 13 mmol/L (10-20); BUN (Urea Nitrogen) 24 mg/dL (8.4-25.7); Bilirubin, Total 0.8 mg/dL (0.2-1.2); Calc. Creatinine Clearance 60 mL/min (70-130); Calcium 9.6 mg/dL (7.8-10.44); Carbon Dioxide 26 mmol/L (23-31); Chloride 105 mmol/L (98-107); Estimated GFR 59; Globulin 2.5 g/dL (2.4-3.5); Glucose 164 mg/dL (80-115); Potassium 3.7 mmol/L (3.5-5.1); Protein, Total 6.6 g/dL (5.8-8.1); Sodium 140 mmol/L (136-145)
[2022-06-24] MEDS: Sodium Chloride 0.9% 1,000 ML IV SCH (15:25)
[2022-06-24] MEDS: Thiamine 100 MG TAB PO SCH (16:31)
[2022-06-24] MEDS: Mometasone 100 MCG/Formoterol 5 MCG 120 PUFF INHALER INH SCH (19:28)
[2022-06-24] MEDS ORDERED: traZODone HCl 50 MG TAB PO SCH (21:30)
[2022-06-24] MEDS: Atorvastatin Calcium 40 MG TAB PO SCH (21:48)
[2022-06-24] MEDS: QUEtiapine 25 MG TAB PO SCH (22:01)
[2022-06-25] MEDS: Sodium Chloride 0.9% 1,000 ML IV SCH ×2 (04:34→17:13)
[2022-06-25 05:54] LABS: Hemoglobin 13.8 g/dL (14.0-18.0); Mean Corpuscular HGB CONC 32.5 g/dL (32.0-36.0); Mean Corpuscular Hemoglobin 28.7 pg (27.0-31.0); Mean Corpuscular Volume 88.4 fl (78.0-98.0); Platelet Count 298 10x3/uL (130-400); Red Blood Cell (RBC) Count 4.81 mill/uL (4.70-6.10); White Blood Cell (WBC) Count 9.9 10x3/uL (4.8-10.8)
[2022-06-25 06:15] LABS: Band 1 % (5-11); Eosinophils 3 % (0-10); Lymphocytes 42 % (21-51); MDiff Complete? YES; Monocytes 4 % (0-10); Neutrophil 50 % (42-75)
[2022-06-25 06:23] LABS: Anion Gap 13 mmol/L (10-20); BUN (Urea Nitrogen) 24 mg/dL (8.4-25.7); Calc. Creatinine Clearance 63 mL/min (70-130); Calcium 9.3 mg/dL (7.8-10.44); Carbon Dioxide 21 mmol/L (23-31); Chloride 108 mmol/L (98-107); Estimated GFR 63; Glucose 100 mg/dL (80-115); Potassium 3.9 mmol/L (3.5-5.1); Sodium 138 mmol/L (136-145)
[2022-06-25] MEDS: Levothyroxine 175 MCG TAB PO SCH (06:29)
[2022-06-25] MEDS: Mometasone 100 MCG/Formoterol 5 MCG 120 PUFF INHALER INH SCH ×2 (06:35→19:18)
[2022-06-25] MEDS: Aspirin 81 mg Enteric Coated Tablet PO SCH (08:23)
[2022-06-25] MEDS: Famotidine 20 MG TAB PO SCH (08:23)
[2022-06-25] MEDS: Folic Acid 1 MG TAB PO SCH (08:23)
[2022-06-25] MEDS: Heparin 5,000 UNITS/ML VIAL SC SCH ×3 (08:23→21:09)
[2022-06-25] MEDS: Multivit, Therapeutic 1 TAB PO SCH (08:23)
[2022-06-25] MEDS ORDERED: Bisacodyl 10 MG SUPP PR PRN (10:31)
[2022-06-25] MEDS ORDERED: Mineral Oil ENEMA PR SCH (13:45)
[2022-06-25] MEDS: Thiamine 100 MG TAB PO SCH (17:12)
[2022-06-25] MEDS: Polyethylene Glycol 3350 17 GM Packet PO SCH (21:09)
[2022-06-25] MEDS: Atorvastatin Calcium 40 MG TAB PO SCH (21:09)
[2022-06-26] MEDS: traZODone HCl 50 MG TAB PO PRN ×2 (01:00→20:55)
[2022-06-26 06:14] LABS: #Basophils 0.1 thou/uL (0.0-0.2); #Eosinphils 0.3 thou/uL (0.0-0.7); #Lymphocytes 3.8 thou/uL (1.20-3.40); #Monocytes 0.8 thou/uL (0.11-0.59); #Neutrophils 5.6 thou/uL (1.40-6.50); %Basophils 0.7 % (0.0-1.0); %Monocytes 7.1 % (0.0-10.0); %Neutrophils 53.2 % (42.0-75.0); Hemoglobin 13.2 g/dL (14.0-18.0); Mean Corpuscular HGB CONC 31.3 g/dL (32.0-36.0); Mean Corpuscular Hemoglobin 27.7 pg (27.0-31.0); Mean Corpuscular Volume 88.6 fl (78.0-98.0); Mean Platelet Volume 7.9 fL (7.4-10.4); Platelet Count 310 10x3/uL (130-400); RBC Distribution Width 12.8 % (11.5-14.5); Red Blood Cell (RBC) Count 4.75 mill/uL (4.70-6.10); White Blood Cell (WBC) Count 10.6 10x3/uL (4.8-10.8)
[2022-06-26 06:37] LABS: Anion Gap 12 mmol/L (10-20); BUN (Urea Nitrogen) 22 mg/dL (8.4-25.7); Calc. Creatinine Clearance 60 mL/min (70-130); Calcium 9.3 mg/dL (7.8-10.44); Carbon Dioxide 26 mmol/L (23-31); Chloride 105 mmol/L (98-107); Estimated GFR 60; Glucose 81 mg/dL (80-115); Sodium 139 mmol/L (136-145)
[2022-06-26] MEDS: Levothyroxine 175 MCG TAB PO SCH (06:38)
[2022-06-26] MEDS: Heparin 5,000 UNITS/ML VIAL SC SCH ×2 (07:59→20:55)
[2022-06-26] MEDS: Mometasone 100 MCG/Formoterol 5 MCG 120 PUFF INHALER INH SCH ×2 (08:08→19:00)
[2022-06-26] MEDS: Polyethylene Glycol 3350 17 GM Packet PO SCH ×2 (08:30→21:00)
[2022-06-26] MEDS: Famotidine 20 MG TAB PO SCH (08:33)
[2022-06-26] MEDS: Multivit, Therapeutic 1 TAB PO SCH (08:33)
[2022-06-26] MEDS: Acetaminophen 325 MG TAB PO PRN (08:33)
[2022-06-26] MEDS: Aspirin 81 mg Enteric Coated Tablet PO SCH (08:34)
[2022-06-26] MEDS: Folic Acid 1 MG TAB PO SCH (08:34)
[2022-06-26] MEDS: Sodium Chloride 0.9% 1,000 ML IV SCH (10:00)
[2022-06-26] MEDS ORDERED: Mineral Oil ENEMA PR SCH (10:45)
[2022-06-26] MEDS ORDERED: GoLYTELY 4,000 ml Bottle PO SCH (13:00)
[2022-06-26] MEDS: Thiamine 100 MG TAB PO SCH (16:05)
[2022-06-26] MEDS: Atorvastatin Calcium 40 MG TAB PO SCH (20:55)
[2022-06-26] MEDS: diphenhydrAMINE 25 MG CAP PO PRN (20:55)
[2022-06-27] MEDS: Levothyroxine 175 MCG TAB PO SCH (05:23)
[2022-06-27 06:23] LABS: Hemoglobin 13.6 g/dL (14.0-18.0); Mean Corpuscular HGB CONC 32.7 g/dL (32.0-36.0); Mean Corpuscular Volume 88.7 fl (78.0-98.0); Mean Platelet Volume 8.4 fL (7.4-10.4); Platelet Count 318 10x3/uL (130-400); RBC Distribution Width 12.8 % (11.5-14.5); White Blood Cell (WBC) Count 10.7 10x3/uL (4.8-10.8)
[2022-06-27 06:46] LABS: ALT (SGPT) 29 U/L (8-55); AST (SGOT) 29 U/L (5-34); Albumin 4.3 g/dL (3.4-4.8); Alkaline Phosphatase 94 U/L (40-110); Anion Gap 13 mmol/L (10-20); BUN (Urea Nitrogen) 21 mg/dL (8.4-25.7); Bilirubin, Total 0.8 mg/dL (0.2-1.2); Calc. Creatinine Clearance 59 mL/min (70-130); Calcium 9.6 mg/dL (7.8-10.44); Carbon Dioxide 25 mmol/L (23-31); Chloride 103 mmol/L (98-107); Estimated GFR 58; Globulin 2.5 g/dL (2.4-3.5); Glucose 93 mg/dL (80-115); Potassium 3.9 mmol/L (3.5-5.1); Protein, Total 6.8 g/dL (5.8-8.1); Sodium 137 mmol/L (136-145)
[2022-06-27 07:33] LABS: Band 2 % (5-11); Eosinophils 1 % (0-10); Lymphocytes 26 % (21-51); MDiff Complete? YES; Monocytes 6 % (0-10); Neutrophil 63 % (42-75); Platelet Morphology Comment Appears Adequate; RBC Morphology Normal; Reactive Lymphocytes 1 % (0-10)
[2022-06-27] MEDS: Mometasone 100 MCG/Formoterol 5 MCG 120 PUFF INHALER INH SCH ×2 (07:37→18:59)
[2022-06-27] MEDS: Heparin 5,000 UNITS/ML VIAL SC SCH ×2 (08:37→21:52)
[2022-06-27] MEDS: Aspirin 81 mg Enteric Coated Tablet PO SCH (08:38)
[2022-06-27] MEDS: Folic Acid 1 MG TAB PO SCH (08:38)
[2022-06-27] MEDS: Multivit, Therapeutic 1 TAB PO SCH (08:38)
[2022-06-27] MEDS: Famotidine 20 MG TAB PO SCH (08:38)
[2022-06-27] MEDS: Polyethylene Glycol 3350 17 GM Packet PO SCH ×4 (08:39→21:52)
[2022-06-27] MEDS: Sodium Chloride 0.9% 1,000 ML IV SCH (14:11)
[2022-06-27] MEDS: Thiamine 100 MG TAB PO SCH (15:47)
[2022-06-27] MEDS: Atorvastatin Calcium 40 MG TAB PO SCH (21:52)
[2022-06-27] MEDS: traZODone HCl 50 MG TAB PO PRN (21:52)
[2022-06-27] MEDS: diphenhydrAMINE 25 MG CAP PO PRN (21:52)
[2022-06-28] MEDS: Sodium Chloride 0.9% 1,000 ML IV SCH (01:39)
[2022-06-28] MEDS: Polyethylene Glycol 3350 17 GM Packet PO SCH ×6 (01:59→21:13)
[2022-06-28 05:26] LABS: Hemoglobin 15.1 g/dL (14.0-18.0); Mean Corpuscular HGB CONC 31.6 g/dL (32.0-36.0); Mean Corpuscular Hemoglobin 27.9 pg (27.0-31.0); Mean Corpuscular Volume 88.1 fl (78.0-98.0); Mean Platelet Volume 8.2 fL (7.4-10.4); Platelet Count 373 10x3/uL (130-400); Red Blood Cell (RBC) Count 5.41 mill/uL (4.70-6.10); White Blood Cell (WBC) Count 12.7 10x3/uL (4.8-10.8)
[2022-06-28 05:46] LABS: Eosinophils 3 % (0-10); Lymphocytes 26 % (21-51); MDiff Complete? YES; Monocytes 8 % (0-10); Neutrophil 62 % (42-75); Platelet Morphology Comment Appears Adequate; RBC Morphology Normal
[2022-06-28 05:49] LABS: Anion Gap 16 mmol/L (10-20); BUN (Urea Nitrogen) 24 mg/dL (8.4-25.7); Calc. Creatinine Clearance 54 mL/min (70-130); Calcium 10.6 mg/dL (7.8-10.44); Carbon Dioxide 25 mmol/L (23-31); Chloride 102 mmol/L (98-107); Estimated GFR 52; Glucose 116 mg/dL (80-115); Sodium 139 mmol/L (136-145)
[2022-06-28] MEDS: Mometasone 100 MCG/Formoterol 5 MCG 120 PUFF INHALER INH SCH ×2 (07:25→19:26)
[2022-06-28] MEDS: Levothyroxine 175 MCG TAB PO SCH (07:55)
[2022-06-28] MEDS: Multivit, Therapeutic 1 TAB PO SCH (09:34)
[2022-06-28] MEDS: Folic Acid 1 MG TAB PO SCH (09:34)
[2022-06-28] MEDS: Aspirin 81 mg Enteric Coated Tablet PO SCH (09:34)
[2022-06-28] MEDS: Dextrose 5 %-0.45 % NaCl 1,000 ML IV SCH ×2 (09:35→16:17)
[2022-06-28] MEDS: Heparin 5,000 UNITS/ML VIAL SC SCH ×2 (09:35→21:14)
[2022-06-28] MEDS: Famotidine 20 MG TAB PO SCH (09:35)
[2022-06-28] MEDS: Bisacodyl 10 MG SUPP PR SCH (09:35)
[2022-06-28] MEDS: Thiamine 100 MG TAB PO SCH (16:26)
[2022-06-28] MEDS: Atorvastatin Calcium 40 MG TAB PO SCH (21:14)
[2022-06-29] MEDS: Polyethylene Glycol 3350 17 GM Packet PO SCH ×6 (02:51→16:46)
[2022-06-29] MEDS: Dextrose 5 %-0.45 % NaCl 1,000 ML IV SCH ×2 (05:52→11:19)
[2022-06-29] MEDS: Levothyroxine 175 MCG TAB PO SCH (05:53)
[2022-06-29 06:34] LABS: Hemoglobin 15.1 g/dL (14.0-18.0); Mean Corpuscular HGB CONC 32.5 g/dL (32.0-36.0); Mean Corpuscular Hemoglobin 28.7 pg (27.0-31.0); Mean Corpuscular Volume 88.3 fl (78.0-98.0); Mean Platelet Volume 8.2 fL (7.4-10.4); Platelet Count 370 10x3/uL (130-400); Red Blood Cell (RBC) Count 5.26 mill/uL (4.70-6.10); White Blood Cell (WBC) Count 15.6 10x3/uL (4.8-10.8)
[2022-06-29 06:53] LABS: Anion Gap 17 mmol/L (10-20); BUN (Urea Nitrogen) 27 mg/dL (8.4-25.7); Calc. Creatinine Clearance 56 mL/min (70-130); Calcium 9.9 mg/dL (7.8-10.44); Carbon Dioxide 22 mmol/L (23-31); Chloride 103 mmol/L (98-107); Estimated GFR 55; Glucose 123 mg/dL (80-115); Potassium 4.4 mmol/L (3.5-5.1); Sodium 138 mmol/L (136-145)
[2022-06-29 07:24] LABS: Band 1 % (5-11); Eosinophils 1 % (0-10); Lymphocytes 36 % (21-51); MDiff Complete? YES; Metamyelocyte 1 % (0-0); Monocytes 7 % (0-10); Myelocyte 1 % (0-0); Neutrophil 53 % (42-75); RBC Morphology Normal
[2022-06-29] MEDS: Heparin 5,000 UNITS/ML VIAL SC SCH ×2 (08:54→20:35)
[2022-06-29] MEDS: Famotidine 20 MG TAB PO SCH (08:55)
[2022-06-29] MEDS: Bisacodyl 10 MG SUPP PR SCH (08:55)
[2022-06-29] MEDS: Folic Acid 1 MG TAB PO SCH (08:55)
[2022-06-29] MEDS: Aspirin 81 mg Enteric Coated Tablet PO SCH (08:55)
[2022-06-29] MEDS: Multivit, Therapeutic 1 TAB PO SCH (08:55)
[2022-06-29] MEDS: Mometasone 100 MCG/Formoterol 5 MCG 120 PUFF INHALER INH SCH ×2 (11:40→18:24)
[2022-06-29] MEDS: Acetaminophen 325 MG TAB PO PRN (13:41)
[2022-06-29] MEDS: Nicotine 14 MG PATCH TD SCH (13:41)
[2022-06-29] MEDS: Thiamine 100 MG TAB PO SCH (16:46)
[2022-06-29] MEDS ORDERED: OLANZapine 10 MG VIAL IM SCH (19:15)
[2022-06-29] MEDS: Atorvastatin Calcium 40 MG TAB PO SCH (20:35)
[2022-06-30] MEDS: Dextrose 5 %-0.45 % NaCl 1,000 ML IV SCH (02:02)
[2022-06-30 05:36] LABS: Hemoglobin 14.7 g/dL (14.0-18.0); Mean Corpuscular HGB CONC 32.2 g/dL (32.0-36.0); Mean Corpuscular Hemoglobin 28.6 pg (27.0-31.0); Mean Corpuscular Volume 88.7 fl (78.0-98.0); Mean Platelet Volume 8.4 fL (7.4-10.4); Platelet Count 368 10x3/uL (130-400); RBC Distribution Width 12.9 % (11.5-14.5); Red Blood Cell (RBC) Count 5.13 mill/uL (4.70-6.10); White Blood Cell (WBC) Count 14.4 10x3/uL (4.8-10.8)
[2022-06-30 05:55] LABS: Anion Gap 19 mmol/L (10-20); BUN (Urea Nitrogen) 24 mg/dL (8.4-25.7); Calc. Creatinine Clearance 56 mL/min (70-130); Calcium 10.1 mg/dL (7.8-10.44); Carbon Dioxide 22 mmol/L (23-31); Chloride 103 mmol/L (98-107); Estimated GFR 54; Glucose 121 mg/dL (80-115); Potassium 4.5 mmol/L (3.5-5.1); Sodium 139 mmol/L (136-145)
[2022-06-30 06:21] LABS: Eosinophils 1 % (0-10); Lymphocytes 36 % (21-51); MDiff Complete? YES; Monocytes 6 % (0-10); Neutrophil 57 % (42-75); Platelet Morphology Comment Appears Adequate; RBC Morphology Normal
[2022-06-30] MEDS: Levothyroxine 175 MCG TAB PO SCH (08:23)
[2022-06-30] MEDS: Mometasone 100 MCG/Formoterol 5 MCG 120 PUFF INHALER INH SCH ×2 (08:30→19:14)
[2022-06-30] MEDS: Heparin 5,000 UNITS/ML VIAL SC SCH ×2 (10:02→21:08)
[2022-06-30] MEDS: Famotidine 20 MG TAB PO SCH (10:02)
[2022-06-30] MEDS: Bisacodyl 10 MG SUPP PR SCH (10:02)
[2022-06-30] MEDS: Folic Acid 1 MG TAB PO SCH (10:02)
[2022-06-30] MEDS: Aspirin 81 mg Enteric Coated Tablet PO SCH (10:02)
[2022-06-30] MEDS: Multivit, Therapeutic 1 TAB PO SCH (10:03)
[2022-06-30] MEDS: Nicotine 14 MG PATCH TD SCH (17:07)
[2022-06-30] MEDS: Thiamine 100 MG TAB PO SCH (17:08)
[2022-06-30] MEDS ORDERED: traZODone HCl 50 MG TAB PO SCH (21:00)
[2022-06-30] MEDS: Atorvastatin Calcium 40 MG TAB PO SCH (21:08)
[2022-07-01 06:03] LABS: Anion Gap 19 mmol/L (10-20); BUN (Urea Nitrogen) 27 mg/dL (8.4-25.7); Calc. Creatinine Clearance 50 mL/min (70-130); Calcium 10.2 mg/dL (7.8-10.44); Carbon Dioxide 21 mmol/L (23-31); Chloride 102 mmol/L (98-107); Estimated GFR 48; Glucose 120 mg/dL (80-115); Potassium 4.4 mmol/L (3.5-5.1); Sodium 138 mmol/L (136-145)
[2022-07-01] MEDS: Levothyroxine 175 MCG TAB PO SCH (06:45)
[2022-07-01] MEDS: Mometasone 100 MCG/Formoterol 5 MCG 120 PUFF INHALER INH SCH ×2 (09:41→19:06)
[2022-07-01] MEDS: Heparin 5,000 UNITS/ML VIAL SC SCH ×2 (09:42→22:09)
[2022-07-01] MEDS: Bisacodyl 10 MG SUPP PR SCH (09:42)
[2022-07-01] MEDS: Multivit, Therapeutic 1 TAB PO SCH (09:42)
[2022-07-01] MEDS: diphenhydrAMINE 25 MG CAP PO PRN (09:42)
[2022-07-01] MEDS: Folic Acid 1 MG TAB PO SCH (09:42)
[2022-07-01] MEDS: Famotidine 20 MG TAB PO SCH (09:42)
[2022-07-01] MEDS: Aspirin 81 mg Enteric Coated Tablet PO SCH (09:42)
[2022-07-01] MEDS ORDERED: Bisacodyl 5 MG TAB PO PRN (11:50)
[2022-07-01] MEDS: Polyethylene Glycol 3350 17 GM Packet PO SCH (18:24)
[2022-07-01] MEDS: Nicotine 14 MG PATCH TD SCH (18:25)
[2022-07-01] MEDS: traZODone HCl 50 MG TAB PO SCH (18:25)
[2022-07-01] MEDS: Thiamine 100 MG TAB PO SCH (18:29)
[2022-07-01] MEDS: Atorvastatin Calcium 40 MG TAB PO SCH (22:09)
[2022-07-01] MEDS: Senokot S 8.6-50 MG TAB PO SCH (22:09)
[2022-07-02 06:21] LABS: Hemoglobin 14.8 g/dL (14.0-18.0); Lymphocytes 48 % (21-51); MDiff Complete? YES; Mean Corpuscular HGB CONC 34.9 g/dL (32.0-36.0); Mean Corpuscular Hemoglobin 30.6 pg (27.0-31.0); Mean Corpuscular Volume 87.8 fl (78.0-98.0); Mean Platelet Volume 8.5 fL (7.4-10.4); Monocytes 6 % (0-10); Neutrophil 46 % (42-75); Platelet Count 350 10x3/uL (130-400); Platelet Morphology Comment Appears Adequate; RBC Distribution Width 13.2 % (11.5-14.5); RBC Morphology Normal; Red Blood Cell (RBC) Count 4.84 mill/uL (4.70-6.10); White Blood Cell (WBC) Count 12.6 10x3/uL (4.8-10.8)
[2022-07-02 06:22] LABS: Anion Gap 17 mmol/L (10-20); BUN (Urea Nitrogen) 36 mg/dL (8.4-25.7); Calc. Creatinine Clearance 48 mL/min (70-130); Calcium 10.2 mg/dL (7.8-10.44); Carbon Dioxide 22 mmol/L (23-31); Chloride 103 mmol/L (98-107); Estimated GFR 46; Glucose 155 mg/dL (80-115); Potassium 4.4 mmol/L (3.5-5.1); Sodium 138 mmol/L (136-145)
[2022-07-02] MEDS: Levothyroxine 175 MCG TAB PO SCH (06:48)
[2022-07-02] MEDS: Mometasone 100 MCG/Formoterol 5 MCG 120 PUFF INHALER INH SCH ×2 (08:23→19:52)
[2022-07-02] MEDS: Folic Acid 1 MG TAB PO SCH (09:25)
[2022-07-02] MEDS: Clopidogrel Bisulfate 75 MG TAB PO SCH (09:25)
[2022-07-02] MEDS: Famotidine 20 MG TAB PO SCH (09:25)
[2022-07-02] MEDS: Multivit, Therapeutic 1 TAB PO SCH (09:26)
[2022-07-02] MEDS: Aspirin 81 mg Enteric Coated Tablet PO SCH (09:26)
[2022-07-02] MEDS: Heparin 5,000 UNITS/ML VIAL SC SCH ×2 (09:26→22:01)
[2022-07-02] MEDS: Senokot S 8.6-50 MG TAB PO SCH ×2 (09:27→22:01)
[2022-07-02] MEDS: Sodium Chloride 0.9% 1,000 ML IV SCH ×2 (10:03→17:38)
[2022-07-02] MEDS: Nicotine 14 MG PATCH TD SCH (12:40)
[2022-07-02] MEDS: Polyethylene Glycol 3350 17 GM Packet PO SCH (17:37)
[2022-07-02] MEDS: Thiamine 100 MG TAB PO SCH (17:37)
[2022-07-02] MEDS: Atorvastatin Calcium 40 MG TAB PO SCH (22:01)
[2022-07-02] MEDS: traZODone HCl 150 MG TAB PO SCH (22:01)
[2022-07-02] MEDS: traZODone HCl 50 MG TAB PO SCH (22:30)
[2022-07-03 06:22] LABS: ALT (SGPT) 24 U/L (8-55); AST (SGOT) 29 U/L (5-34); Albumin 3.8 g/dL (3.4-4.8); Alkaline Phosphatase 89 U/L (40-110); Anion Gap 14 mmol/L (10-20); BUN (Urea Nitrogen) 31 mg/dL (8.4-25.7); Bilirubin, Total 0.4 mg/dL (0.2-1.2); Calc. Creatinine Clearance 62 mL/min (70-130); Calcium 9.2 mg/dL (7.8-10.44); Carbon Dioxide 23 mmol/L (23-31); Chloride 109 mmol/L (98-107); Estimated GFR 62; Globulin 2.2 g/dL (2.4-3.5); Glucose 108 mg/dL (80-115); Potassium 4.1 mmol/L (3.5-5.1); Sodium 142 mmol/L (136-145)
[2022-07-03] MEDS: Levothyroxine 175 MCG TAB PO SCH (06:32)
[2022-07-03 06:38] LABS: Eosinophils 4 % (0-10); Hemoglobin 12.9 g/dL (14.0-18.0); Lymphocytes 48 % (21-51); MDiff Complete? YES; Mean Corpuscular HGB CONC 33.5 g/dL (32.0-36.0); Mean Corpuscular Volume 89.5 fl (78.0-98.0); Mean Platelet Volume 8.6 fL (7.4-10.4); Monocytes 8 % (0-10); Neutrophil 39 % (42-75); Platelet Count 300 10x3/uL (130-400); Platelet Morphology Comment Appears Adequate; RBC Distribution Width 13.3 % (11.5-14.5); RBC Morphology Normal; Reactive Lymphocytes 1 % (0-10); White Blood Cell (WBC) Count 10.8 10x3/uL (4.8-10.8)
[2022-07-03] MEDS: Mometasone 100 MCG/Formoterol 5 MCG 120 PUFF INHALER INH SCH ×2 (07:30→19:25)
[2022-07-03] MEDS: Aspirin 81 mg Enteric Coated Tablet PO SCH (08:38)
[2022-07-03] MEDS: Multivit, Therapeutic 1 TAB PO SCH (08:38)
[2022-07-03] MEDS: Clopidogrel Bisulfate 75 MG TAB PO SCH (08:38)
[2022-07-03] MEDS: Heparin 5,000 UNITS/ML VIAL SC SCH ×2 (08:38→20:12)
[2022-07-03] MEDS: Folic Acid 1 MG TAB PO SCH (08:38)
[2022-07-03] MEDS: Famotidine 20 MG TAB PO SCH (08:38)
[2022-07-03] MEDS: Senokot S 8.6-50 MG TAB PO SCH ×2 (08:40→20:11)
[2022-07-03] MEDS: Nicotine 14 MG PATCH TD SCH (13:19)
[2022-07-03] MEDS: Thiamine 100 MG TAB PO SCH (17:23)
[2022-07-03] MEDS: Polyethylene Glycol 3350 17 GM Packet PO SCH (17:23)
[2022-07-03] MEDS: Acetaminophen 325 MG TAB PO PRN ×2 (17:23→20:12)
[2022-07-03] MEDS: traZODone HCl 150 MG TAB PO SCH (20:11)
[2022-07-03] MEDS: Atorvastatin Calcium 40 MG TAB PO SCH (20:12)
[2022-07-03] MEDS ORDERED: Ketorolac Tromethamine 30 MG/ML VIAL IVP SCH (23:00)
[2022-07-04 05:40] LABS: Band 2 % (5-11); Eosinophils 1 % (0-10); Hemoglobin 11.4 g/dL (14.0-18.0); Hypochromia SLIGHT = 6-15 cells (100X) (0-5/hpf); Lymphocytes 40 % (21-51); MDiff Complete? YES; Mean Corpuscular HGB CONC 33.2 g/dL (32.0-36.0); Mean Corpuscular Hemoglobin 29.6 pg (27.0-31.0); Mean Platelet Volume 8.4 fL (7.4-10.4); Monocytes 1 % (0-10); Neutrophil 56 % (42-75); Platelet Count 281 10x3/uL (130-400); Platelet Morphology Comment Appears Adequate; RBC Distribution Width 12.9 % (11.5-14.5); Red Blood Cell (RBC) Count 3.85 mill/uL (4.70-6.10); White Blood Cell (WBC) Count 10.4 10x3/uL (4.8-10.8)
[2022-07-04] MEDS: Acetaminophen 325 MG TAB PO PRN ×2 (05:55→19:54)
[2022-07-04] MEDS: Levothyroxine 175 MCG TAB PO SCH (05:55)
[2022-07-04 05:56] LABS: ALT (SGPT) 21 U/L (8-55); AST (SGOT) 23 U/L (5-34); Albumin 3.7 g/dL (3.4-4.8); Alkaline Phosphatase 73 U/L (40-110); Anion Gap 11 mmol/L (10-20); BUN (Urea Nitrogen) 34 mg/dL (8.4-25.7); Bilirubin, Total 0.5 mg/dL (0.2-1.2); Calc. Creatinine Clearance 54 mL/min (70-130); Calcium 9.1 mg/dL (7.8-10.44); Carbon Dioxide 25 mmol/L (23-31); Chloride 107 mmol/L (98-107); Estimated GFR 52; Glucose 94 mg/dL (80-115); Potassium 4.2 mmol/L (3.5-5.1); Protein, Total 5.7 g/dL (5.8-8.1); Sodium 139 mmol/L (136-145)
[2022-07-04] MEDS: Mometasone 100 MCG/Formoterol 5 MCG 120 PUFF INHALER INH SCH ×2 (06:23→18:15)
[2022-07-04] MEDS: Famotidine 20 MG TAB PO SCH (09:44)
[2022-07-04] MEDS: Heparin 5,000 UNITS/ML VIAL SC SCH ×2 (09:44→19:55)
[2022-07-04] MEDS: Aspirin 81 mg Enteric Coated Tablet PO SCH (09:44)
[2022-07-04] MEDS: Folic Acid 1 MG TAB PO SCH (09:44)
[2022-07-04] MEDS: Clopidogrel Bisulfate 75 MG TAB PO SCH (09:44)
[2022-07-04] MEDS: Multivit, Therapeutic 1 TAB PO SCH (09:44)
[2022-07-04] MEDS: Senokot S 8.6-50 MG TAB PO SCH ×2 (09:44→19:54)
[2022-07-04] MEDS ORDERED: QUEtiapine 25 MG TAB PO SCH (12:00)
[2022-07-04] MEDS: Nicotine 14 MG PATCH TD SCH (12:25)
[2022-07-04] MEDS: Sodium Chloride 0.9% 1,000 ML IV SCH ×3 (12:34→23:52)
[2022-07-04] MEDS: Polyethylene Glycol 3350 17 GM Packet PO SCH (17:28)
[2022-07-04] MEDS: Thiamine 100 MG TAB PO SCH (17:28)
[2022-07-04] MEDS: traZODone HCl 150 MG TAB PO SCH (19:54)
[2022-07-04] MEDS: Atorvastatin Calcium 40 MG TAB PO SCH (19:54)
[2022-07-04] MEDS: diphenhydrAMINE 25 MG CAP PO PRN (19:54)
[2022-07-04] MEDS ORDERED: Sterile Water 10 ML VIAL FS PRN (20:30)
[2022-07-04] MEDS ORDERED: OLANZapine 10 MG VIAL IM SCH ×2 (20:30→20:33)
[2022-07-04] MEDS ORDERED: OLANZapine 5 MG TAB PO SCH (20:45)
[2022-07-04] MEDS ORDERED: Ketorolac Tromethamine 30 MG/ML VIAL IVP SCH (20:45)
[2022-07-05 05:51] LABS: ALT (SGPT) 19 U/L (8-55); AST (SGOT) 21 U/L (5-34); Albumin 3.5 g/dL (3.4-4.8); Alkaline Phosphatase 79 U/L (40-110); Anion Gap 14 mmol/L (10-20); BUN (Urea Nitrogen) 31 mg/dL (8.4-25.7); Bilirubin, Total 0.3 mg/dL (0.2-1.2); Calc. Creatinine Clearance 59 mL/min (70-130); Calcium 8.9 mg/dL (7.8-10.44); Carbon Dioxide 19 mmol/L (23-31); Chloride 112 mmol/L (98-107); Estimated GFR 58; Glucose 88 mg/dL (80-115); Potassium 4.3 mmol/L (3.5-5.1); Protein, Total 5.5 g/dL (5.8-8.1); Sodium 141 mmol/L (136-145)
[2022-07-05 05:58] LABS: Eosinophils 4 % (0-10); Hemoglobin 11.4 g/dL (14.0-18.0); Lymphocytes 42 % (21-51); MDiff Complete? YES; Mean Corpuscular Hemoglobin 30.6 pg (27.0-31.0); Mean Corpuscular Volume 89.9 fl (78.0-98.0); Mean Platelet Volume 8.5 fL (7.4-10.4); Monocytes 3 % (0-10); Neutrophil 50 % (42-75); Platelet Count 247 10x3/uL (130-400); Platelet Morphology Comment Appears Adequate; RBC Distribution Width 13.1 % (11.5-14.5); RBC Morphology Normal; Red Blood Cell (RBC) Count 3.75 mill/uL (4.70-6.10); White Blood Cell (WBC) Count 8.7 10x3/uL (4.8-10.8)
[2022-07-05] MEDS: Levothyroxine 175 MCG TAB PO SCH (06:35)
[2022-07-05] MEDS: Mometasone 100 MCG/Formoterol 5 MCG 120 PUFF INHALER INH SCH ×2 (08:46→19:40)
[2022-07-05] MEDS: Heparin 5,000 UNITS/ML VIAL SC SCH ×2 (09:21→20:17)
[2022-07-05] MEDS: Senokot S 8.6-50 MG TAB PO SCH ×2 (09:22→20:17)
[2022-07-05] MEDS: Folic Acid 1 MG TAB PO SCH (09:22)
[2022-07-05] MEDS: Aspirin 81 mg Enteric Coated Tablet PO SCH (09:22)
[2022-07-05] MEDS: Clopidogrel Bisulfate 75 MG TAB PO SCH (09:22)
[2022-07-05] MEDS: Famotidine 20 MG TAB PO SCH (09:22)
[2022-07-05] MEDS: Multivit, Therapeutic 1 TAB PO SCH (09:22)
[2022-07-05] MEDS: Acetaminophen 325 MG TAB PO PRN (12:25)
[2022-07-05] MEDS: Nicotine 14 MG PATCH TD SCH (12:26)
[2022-07-05] MEDS: traMADol HCl 50 MG TAB PO PRN ×2 (13:21→20:17)
[2022-07-05] MEDS ORDERED: HYDROcodone/Acetaminophen 5/325 mg Tablet PO SCH (14:45)
[2022-07-05] MEDS: Sodium Chloride 0.9% 1,000 ML IV SCH (15:56)
[2022-07-05] MEDS: Polyethylene Glycol 3350 17 GM Packet PO SCH (18:20)
[2022-07-05] MEDS: Thiamine 100 MG TAB PO SCH (18:21)
[2022-07-05] MEDS: traZODone HCl 150 MG TAB PO SCH (18:21)
[2022-07-05] MEDS: Atorvastatin Calcium 40 MG TAB PO SCH (20:17)
[2022-07-05] MEDS ORDERED: OLANZapine 2.5 MG TAB PO SCH (21:00)
[2022-07-05] MEDS ORDERED: Sterile Water 10 ML VIAL FS SCH (21:30)
[2022-07-05] MEDS ORDERED: OLANZapine 10 MG VIAL IM SCH (21:30)
[2022-07-06] MEDS ORDERED: OLANZapine 10 MG VIAL IM SCH (00:45)
[2022-07-06] MEDS ORDERED: Sterile Water 10 ML VIAL FS SCH (00:45)
[2022-07-06] MEDS: Levothyroxine 175 MCG TAB PO SCH (05:33)
[2022-07-06 06:07] LABS: ALT (SGPT) 24 U/L (8-55); AST (SGOT) 28 U/L (5-34); Albumin 4.4 g/dL (3.4-4.8); Alkaline Phosphatase 86 U/L (40-110); Anion Gap 15 mmol/L (10-20); BUN (Urea Nitrogen) 23 mg/dL (8.4-25.7); Bilirubin, Total 0.5 mg/dL (0.2-1.2); Calc. Creatinine Clearance 58 mL/min (70-130); Calcium 9.4 mg/dL (7.8-10.44); Carbon Dioxide 23 mmol/L (23-31); Chloride 107 mmol/L (98-107); Estimated GFR 57; Globulin 2.5 g/dL (2.4-3.5); Glucose 100 mg/dL (80-115); Potassium 4.3 mmol/L (3.5-5.1); Protein, Total 6.9 g/dL (5.8-8.1); Sodium 141 mmol/L (136-145)
[2022-07-06 06:49] LABS: Hemoglobin 13.2 g/dL (14.0-18.0); Mean Corpuscular Hemoglobin 30.1 pg (27.0-31.0); Mean Corpuscular Volume 88.4 fl (78.0-98.0); Mean Platelet Volume 8.6 fL (7.4-10.4); Platelet Count 272 10x3/uL (130-400); RBC Distribution Width 13.2 % (11.5-14.5); Red Blood Cell (RBC) Count 4.38 mill/uL (4.70-6.10); White Blood Cell (WBC) Count 12.5 10x3/uL (4.8-10.8)
[2022-07-06 06:52] LABS: Band 4 % (5-11); Hypochromia SLIGHT = 6-15 cells (100X) (0-5/hpf); Lymphocytes 23 % (21-51); MDiff Complete? YES; Monocytes 6 % (0-10); Neutrophil 66 % (42-75); Platelet Morphology Comment Appears Adequate; Reactive Lymphocytes 1 % (0-10)
[2022-07-06] MEDS: Mometasone 100 MCG/Formoterol 5 MCG 120 PUFF INHALER INH SCH (07:56)
[2022-07-06] MEDS: Folic Acid 1 MG TAB PO SCH (10:20)
[2022-07-06] MEDS: Aspirin 81 mg Enteric Coated Tablet PO SCH (10:20)
[2022-07-06] MEDS: Senokot S 8.6-50 MG TAB PO SCH ×2 (10:20→20:46)
[2022-07-06] MEDS: Heparin 5,000 UNITS/ML VIAL SC SCH ×2 (10:20→20:48)
[2022-07-06] MEDS: Famotidine 20 MG TAB PO SCH (10:20)
[2022-07-06] MEDS: Clopidogrel Bisulfate 75 MG TAB PO SCH (10:20)
[2022-07-06] MEDS: Multivit, Therapeutic 1 TAB PO SCH (10:20)
[2022-07-06] MEDS: Nicotine 14 MG PATCH TD SCH (13:26)
[2022-07-06 14:39] LABS: Bilirubin Negative (Negative); Blood, Urine Negative (Negative); CAUTI Indications for Culture Alt mental st,lethar; Clarity Clear (Clear); Glucose, Urine (Dipstick) Normal (Negative); Ketone, Urine Negative (Negative); Leukocyte Negative Leu/uL (Negative); Nitrite Negative (Negative); Protein, Urine (Dipstick) Negative (Neg-Trace); RBC/HPF 0-3 HPF (0-3); Specific Gravity, Urine 1.014 (1.002-1.036); Squamous Epithelial None Seen HPF (0-3); Urobilinogen Normal mg/dL (Less than 2); WBC/HPF 0-3 HPF (0-3); pH, Urine 7.5 (5.0-9.0)
[2022-07-06 14:42] LABS: Bacteria/HPF 1+ HPF (None Seen)
[2022-07-06 14:43] LABS: Urine Culture Reflex No No
[2022-07-06] MEDS: Polyethylene Glycol 3350 17 GM Packet PO SCH (18:11)
[2022-07-06] MEDS: Thiamine 100 MG TAB PO SCH (18:11)
[2022-07-06] MEDS: traZODone HCl 150 MG TAB PO SCH (18:11)
[2022-07-06] MEDS: OLANZapine 2.5 MG TAB PO SCH ×2 (18:12→22:50)
[2022-07-06] MEDS: traMADol HCl 50 MG TAB PO PRN (20:47)
[2022-07-06] MEDS: Atorvastatin Calcium 40 MG TAB PO SCH (20:47)
[2022-07-07] MEDS: diphenhydrAMINE 25 MG CAP PO PRN (04:27)
[2022-07-07] MEDS: Acetaminophen 325 MG TAB PO PRN (04:28)
[2022-07-07 06:30] LABS: ALT (SGPT) 25 U/L (8-55); AST (SGOT) 25 U/L (5-34); Albumin 4.3 g/dL (3.4-4.8); Alkaline Phosphatase 91 U/L (40-110); Anion Gap 14 mmol/L (10-20); BUN (Urea Nitrogen) 26 mg/dL (8.4-25.7); Bilirubin, Total 0.6 mg/dL (0.2-1.2); Calc. Creatinine Clearance 57 mL/min (70-130); Calcium 9.7 mg/dL (7.8-10.44); Carbon Dioxide 22 mmol/L (23-31); Chloride 106 mmol/L (98-107); Estimated GFR 56; Globulin 2.5 g/dL (2.4-3.5); Glucose 134 mg/dL (80-115); Potassium 4.4 mmol/L (3.5-5.1); Protein, Total 6.8 g/dL (5.8-8.1); Sodium 138 mmol/L (136-145)
[2022-07-07 06:42] LABS: Eosinophils 3 % (0-10); Hemoglobin 13.4 g/dL (14.0-18.0); Lymphocytes 43 % (21-51); MDiff Complete? YES; Mean Corpuscular HGB CONC 33.8 g/dL (32.0-36.0); Mean Corpuscular Hemoglobin 29.9 pg (27.0-31.0); Mean Corpuscular Volume 88.5 fl (78.0-98.0); Mean Platelet Volume 8.6 fL (7.4-10.4); Monocytes 7 % (0-10); Neutrophil 46 % (42-75); Platelet Count 281 10x3/uL (130-400); Platelet Morphology Comment Appears Adequate; RBC Distribution Width 13.2 % (11.5-14.5); RBC Morphology Normal; Red Blood Cell (RBC) Count 4.47 mill/uL (4.70-6.10)
[2022-07-07] MEDS: Levothyroxine 175 MCG TAB PO SCH (07:03)
[2022-07-07] MEDS: Multivit, Therapeutic 1 TAB PO SCH (09:22)
[2022-07-07] MEDS: Famotidine 20 MG TAB PO SCH (09:22)
[2022-07-07] MEDS: Heparin 5,000 UNITS/ML VIAL SC SCH ×2 (09:23→21:07)
[2022-07-07] MEDS: Senokot S 8.6-50 MG TAB PO SCH ×2 (09:23→21:06)
[2022-07-07] MEDS: Folic Acid 1 MG TAB PO SCH (09:23)
[2022-07-07] MEDS: Clopidogrel Bisulfate 75 MG TAB PO SCH (09:23)
[2022-07-07] MEDS: Aspirin 81 mg Enteric Coated Tablet PO SCH (09:23)
[2022-07-07] MEDS: Nicotine 14 MG PATCH TD SCH (13:28)
[2022-07-07] MEDS: Thiamine 100 MG TAB PO SCH (17:09)
[2022-07-07] MEDS: Polyethylene Glycol 3350 17 GM Packet PO SCH (17:09)
[2022-07-07] MEDS: Atorvastatin Calcium 40 MG TAB PO SCH (21:06)
[2022-07-07] MEDS: traZODone HCl 150 MG TAB PO SCH (21:06)
[2022-07-08] MEDS: OLANZapine 2.5 MG TAB PO SCH ×2 (00:02→20:51)
[2022-07-08] MEDS ORDERED: OLANZapine 2.5 MG TAB PO SCH (02:15)
[2022-07-08] MEDS: Levothyroxine 175 MCG TAB PO SCH (06:51)
[2022-07-08 08:23] LABS: Band 4 % (5-11); Hemoglobin 13.7 g/dL (14.0-18.0); Lymphocytes 39 % (21-51); MDiff Complete? YES; Mean Corpuscular HGB CONC 32.2 g/dL (32.0-36.0); Mean Corpuscular Hemoglobin 28.4 pg (27.0-31.0); Mean Corpuscular Volume 88.1 fl (78.0-98.0); Mean Platelet Volume 8.4 fL (7.4-10.4); Monocytes 1 % (0-10); Neutrophil 56 % (42-75); Platelet Count 291 10x3/uL (130-400); Platelet Morphology Comment Appears Adequate; RBC Distribution Width 13.4 % (11.5-14.5); RBC Morphology Normal; Red Blood Cell (RBC) Count 4.84 mill/uL (4.70-6.10); White Blood Cell (WBC) Count 11.6 10x3/uL (4.8-10.8)
[2022-07-08 08:28] LABS: ALT (SGPT) 31 U/L (8-55); AST (SGOT) 31 U/L (5-34); Albumin 4.4 g/dL (3.4-4.8); Alkaline Phosphatase 94 U/L (40-110); Anion Gap 15 mmol/L (10-20); BUN (Urea Nitrogen) 29 mg/dL (8.4-25.7); Bilirubin, Total 0.6 mg/dL (0.2-1.2); Calc. Creatinine Clearance 55 mL/min (70-130); Calcium 10.1 mg/dL (7.8-10.44); Carbon Dioxide 23 mmol/L (23-31); Chloride 105 mmol/L (98-107); Estimated GFR 54; Globulin 2.7 g/dL (2.4-3.5); Glucose 135 mg/dL (80-115); Potassium 4.2 mmol/L (3.5-5.1); Protein, Total 7.1 g/dL (5.8-8.1); Sodium 139 mmol/L (136-145)
[2022-07-08] MEDS: Senokot S 8.6-50 MG TAB PO SCH ×2 (10:28→20:47)
[2022-07-08] MEDS: Folic Acid 1 MG TAB PO SCH (10:28)
[2022-07-08] MEDS: Aspirin 81 mg Enteric Coated Tablet PO SCH (10:28)
[2022-07-08] MEDS: Clopidogrel Bisulfate 75 MG TAB PO SCH (10:28)
[2022-07-08] MEDS: Multivit, Therapeutic 1 TAB PO SCH (10:28)
[2022-07-08] MEDS: Heparin 5,000 UNITS/ML VIAL SC SCH ×2 (10:28→20:47)
[2022-07-08] MEDS: Famotidine 20 MG TAB PO SCH (10:28)
[2022-07-08] MEDS: Nicotine 14 MG PATCH TD SCH (13:44)
[2022-07-08] MEDS: Thiamine 100 MG TAB PO SCH (16:27)
[2022-07-08] MEDS: Polyethylene Glycol 3350 17 GM Packet PO SCH (16:29)
[2022-07-08] MEDS: traZODone HCl 150 MG TAB PO SCH (20:46)
[2022-07-08] MEDS: Atorvastatin Calcium 40 MG TAB PO SCH (20:47)
[2022-07-08] MEDS: Acetaminophen 325 MG TAB PO PRN (20:51)
[2022-07-09] MEDS: Levothyroxine 175 MCG TAB PO SCH (06:13)
[2022-07-09 07:37] LABS: ALT (SGPT) 33 U/L (8-55); AST (SGOT) 26 U/L (5-34); Albumin 4.2 g/dL (3.4-4.8); Alkaline Phosphatase 86 U/L (40-110); Anion Gap 16 mmol/L (10-20); BUN (Urea Nitrogen) 37 mg/dL (8.4-25.7); Bilirubin, Total 0.6 mg/dL (0.2-1.2); Calc. Creatinine Clearance 51 mL/min (70-130); Calcium 9.9 mg/dL (7.8-10.44); Carbon Dioxide 23 mmol/L (23-31); Chloride 103 mmol/L (98-107); Estimated GFR 49; Globulin 2.6 g/dL (2.4-3.5); Glucose 184 mg/dL (80-115); Potassium 4.1 mmol/L (3.5-5.1); Protein, Total 6.8 g/dL (5.8-8.1); Sodium 138 mmol/L (136-145)
[2022-07-09 08:47] LABS: Band 3 % (5-11); Eosinophils 1 % (0-10); Hemoglobin 14.3 g/dL (14.0-18.0); Lymphocytes 47 % (21-51); MDiff Complete? YES; Mean Corpuscular HGB CONC 34.9 g/dL (32.0-36.0); Mean Corpuscular Hemoglobin 31.1 pg (27.0-31.0); Mean Corpuscular Volume 89.1 fl (78.0-98.0); Mean Platelet Volume 8.6 fL (7.4-10.4); Monocytes 7 % (0-10); Neutrophil 34 % (42-75); Platelet Count 273 10x3/uL (130-400); Platelet Morphology Comment Appears Adequate; RBC Distribution Width 13.5 % (11.5-14.5); RBC Morphology Normal; Reactive Lymphocytes 8 % (0-10); White Blood Cell (WBC) Count 11.8 10x3/uL (4.8-10.8)
[2022-07-09] MEDS: Multivit, Therapeutic 1 TAB PO SCH (09:34)
[2022-07-09] MEDS: Folic Acid 1 MG TAB PO SCH (09:34)
[2022-07-09] MEDS: Clopidogrel Bisulfate 75 MG TAB PO SCH (09:35)
[2022-07-09] MEDS: Heparin 5,000 UNITS/ML VIAL SC SCH ×2 (09:35→20:39)
[2022-07-09] MEDS: Aspirin 81 mg Enteric Coated Tablet PO SCH (09:35)
[2022-07-09] MEDS: Senokot S 8.6-50 MG TAB PO SCH ×2 (09:35→20:39)
[2022-07-09] MEDS: Famotidine 20 MG TAB PO SCH (09:35)
[2022-07-09] MEDS: Nicotine 14 MG PATCH TD SCH (17:27)
[2022-07-09] MEDS: Thiamine 100 MG TAB PO SCH (18:25)
[2022-07-09] MEDS: Polyethylene Glycol 3350 17 GM Packet PO SCH (18:25)
[2022-07-09] MEDS: OLANZapine 2.5 MG TAB PO SCH (20:39)
[2022-07-09] MEDS: traZODone HCl 150 MG TAB PO SCH (20:39)
[2022-07-09] MEDS: Atorvastatin Calcium 40 MG TAB PO SCH (20:39)
[2022-07-10] MEDS: Levothyroxine 175 MCG TAB PO SCH (06:13)
[2022-07-10 08:32] LABS: ALT (SGPT) 29 U/L (8-55); AST (SGOT) 24 U/L (5-34); Albumin 4.2 g/dL (3.4-4.8); Alkaline Phosphatase 87 U/L (40-110); Anion Gap 13 mmol/L (10-20); BUN (Urea Nitrogen) 42 mg/dL (8.4-25.7); Bilirubin, Total 0.7 mg/dL (0.2-1.2); Calc. Creatinine Clearance 44 mL/min (70-130); Calcium 9.6 mg/dL (7.8-10.44); Carbon Dioxide 26 mmol/L (23-31); Chloride 104 mmol/L (98-107); Estimated GFR 41; Globulin 2.5 g/dL (2.4-3.5); Glucose 115 mg/dL (80-115); Potassium 4.4 mmol/L (3.5-5.1); Protein, Total 6.7 g/dL (5.8-8.1); Sodium 139 mmol/L (136-145)
[2022-07-10 08:44] LABS: Eosinophils 3 % (0-10); Lymphocytes 53 % (21-51); MDiff Complete? YES; Mean Corpuscular HGB CONC 33.9 g/dL (32.0-36.0); Mean Corpuscular Hemoglobin 30.4 pg (27.0-31.0); Mean Corpuscular Volume 89.5 fl (78.0-98.0); Mean Platelet Volume 8.5 fL (7.4-10.4); Monocytes 9 % (0-10); Neutrophil 35 % (42-75); Platelet Count 278 10x3/uL (130-400); Platelet Morphology Comment Appears Adequate; RBC Distribution Width 13.6 % (11.5-14.5); RBC Morphology Normal; Red Blood Cell (RBC) Count 4.62 mill/uL (4.70-6.10); White Blood Cell (WBC) Count 12.5 10x3/uL (4.8-10.8)
[2022-07-10] MEDS: Sodium Chloride 0.9% 1,000 ML IV SCH ×2 (10:25→21:06)
[2022-07-10] MEDS: Senokot S 8.6-50 MG TAB PO SCH ×2 (10:26→21:06)
[2022-07-10] MEDS: Clopidogrel Bisulfate 75 MG TAB PO SCH (10:26)
[2022-07-10] MEDS: Famotidine 20 MG TAB PO SCH (10:26)
[2022-07-10] MEDS: Aspirin 81 mg Enteric Coated Tablet PO SCH (10:26)
[2022-07-10] MEDS: Heparin 5,000 UNITS/ML VIAL SC SCH ×2 (10:26→21:06)
[2022-07-10] MEDS: Folic Acid 1 MG TAB PO SCH (10:26)
[2022-07-10] MEDS: Multivit, Therapeutic 1 TAB PO SCH (10:26)
[2022-07-10] MEDS: Nicotine 14 MG PATCH TD SCH (10:27)
[2022-07-10] MEDS: Polyethylene Glycol 3350 17 GM Packet PO SCH (16:56)
[2022-07-10] MEDS: Thiamine 100 MG TAB PO SCH (17:32)
[2022-07-10] MEDS: traZODone HCl 150 MG TAB PO SCH (18:35)
[2022-07-10] MEDS: Atorvastatin Calcium 40 MG TAB PO SCH (21:06)
[2022-07-10] MEDS: OLANZapine 2.5 MG TAB PO SCH (21:06)
[2022-07-11] MEDS: Acetaminophen 325 MG TAB PO PRN (04:19)
[2022-07-11] MEDS: Levothyroxine 175 MCG TAB PO SCH (05:52)
[2022-07-11 07:22] LABS: Hemoglobin 12.3 g/dL (14.0-18.0); Mean Corpuscular HGB CONC 34.3 g/dL (32.0-36.0); Mean Corpuscular Hemoglobin 30.1 pg (27.0-31.0); Mean Corpuscular Volume 87.9 fl (78.0-98.0); Mean Platelet Volume 8.6 fL (7.4-10.4); Platelet Count 239 10x3/uL (130-400); RBC Distribution Width 13.3 % (11.5-14.5); Red Blood Cell (RBC) Count 4.09 mill/uL (4.70-6.10); White Blood Cell (WBC) Count 10.4 10x3/uL (4.8-10.8)
[2022-07-11 07:38] LABS: ALT (SGPT) 31 U/L (8-55); AST (SGOT) 21 U/L (5-34); Albumin 3.9 g/dL (3.4-4.8); Alkaline Phosphatase 81 U/L (40-110); Anion Gap 13 mmol/L (10-20); BUN (Urea Nitrogen) 37 mg/dL (8.4-25.7); Bilirubin, Total 0.5 mg/dL (0.2-1.2); Calc. Creatinine Clearance 56 mL/min (70-130); Calcium 9.2 mg/dL (7.8-10.44); Carbon Dioxide 23 mmol/L (23-31); Chloride 108 mmol/L (98-107); Estimated GFR 54; Globulin 2.2 g/dL (2.4-3.5); Glucose 111 mg/dL (80-115); Potassium 3.9 mmol/L (3.5-5.1); Protein, Total 6.1 g/dL (5.8-8.1); Sodium 140 mmol/L (136-145)
[2022-07-11 07:59] LABS: Eosinophils 2 % (0-10); Lymphocytes 39 % (21-51); MDiff Complete? YES; Monocytes 9 % (0-10); Neutrophil 50 % (42-75); RBC Morphology Normal
[2022-07-11] MEDS: Famotidine 20 MG TAB PO SCH (08:16)
[2022-07-11] MEDS: Folic Acid 1 MG TAB PO SCH (08:16)
[2022-07-11] MEDS: Clopidogrel Bisulfate 75 MG TAB PO SCH (08:16)
[2022-07-11] MEDS: Multivit, Therapeutic 1 TAB PO SCH (08:17)
[2022-07-11] MEDS: Heparin 5,000 UNITS/ML VIAL SC SCH ×2 (08:17→19:58)
[2022-07-11] MEDS: Aspirin 81 mg Enteric Coated Tablet PO SCH (08:17)
[2022-07-11] MEDS: Senokot S 8.6-50 MG TAB PO SCH ×2 (08:17→19:58)
[2022-07-11] MEDS: Sodium Chloride 0.9% 1,000 ML IV SCH (08:17)
[2022-07-11] MEDS: Nicotine 14 MG PATCH TD SCH (08:18)
[2022-07-11] MEDS: Polyethylene Glycol 3350 17 GM Packet PO SCH (08:18)
[2022-07-11] MEDS: traMADol HCl 50 MG TAB PO PRN ×2 (13:17→19:59)
[2022-07-11] MEDS: Thiamine 100 MG TAB PO SCH (18:20)
[2022-07-11] MEDS: traZODone HCl 150 MG TAB PO SCH (18:20)
[2022-07-11] MEDS: OLANZapine 2.5 MG TAB PO SCH (19:58)
[2022-07-11] MEDS: diphenhydrAMINE 25 MG CAP PO PRN (19:58)
[2022-07-11] MEDS: Atorvastatin Calcium 40 MG TAB PO SCH (19:58)
[2022-07-12] MEDS: Levothyroxine 175 MCG TAB PO SCH (06:07)
[2022-07-12] MEDS: Sodium Chloride 0.9% 1,000 ML IV SCH ×3 (06:07→21:07)
[2022-07-12 06:28] LABS: Hemoglobin 12.7 g/dL (14.0-18.0); Mean Corpuscular HGB CONC 34.3 g/dL (32.0-36.0); Mean Corpuscular Hemoglobin 30.2 pg (27.0-31.0); Mean Platelet Volume 8.7 fL (7.4-10.4); Platelet Count 219 10x3/uL (130-400); RBC Distribution Width 13.3 % (11.5-14.5); Red Blood Cell (RBC) Count 4.19 mill/uL (4.70-6.10); White Blood Cell (WBC) Count 10.8 10x3/uL (4.8-10.8)
[2022-07-12 06:41] LABS: ALT (SGPT) 28 U/L (8-55); AST (SGOT) 24 U/L (5-34); Albumin 4.3 g/dL (3.4-4.8); Alkaline Phosphatase 93 U/L (40-110); Anion Gap 14 mmol/L (10-20); BUN (Urea Nitrogen) 27 mg/dL (8.4-25.7); Bilirubin, Total 0.6 mg/dL (0.2-1.2); Calc. Creatinine Clearance 63 mL/min (70-130); Calcium 9.4 mg/dL (7.8-10.44); Carbon Dioxide 23 mmol/L (23-31); Chloride 107 mmol/L (98-107); Estimated GFR 63; Globulin 2.4 g/dL (2.4-3.5); Glucose 113 mg/dL (80-115); Potassium 4.2 mmol/L (3.5-5.1); Protein, Total 6.7 g/dL (5.8-8.1); Sodium 140 mmol/L (136-145)
[2022-07-12 06:59] LABS: Eosinophils 3 % (0-10); Lymphocytes 34 % (21-51); MDiff Complete? YES; Monocytes 7 % (0-10); Neutrophil 56 % (42-75)
[2022-07-12] MEDS: Famotidine 20 MG TAB PO SCH (08:41)
[2022-07-12] MEDS: Aspirin 81 mg Enteric Coated Tablet PO SCH (08:41)
[2022-07-12] MEDS: Folic Acid 1 MG TAB PO SCH (08:41)
[2022-07-12] MEDS: Senokot S 8.6-50 MG TAB PO SCH ×2 (08:42→21:06)
[2022-07-12] MEDS: Clopidogrel Bisulfate 75 MG TAB PO SCH (08:42)
[2022-07-12] MEDS: Heparin 5,000 UNITS/ML VIAL SC SCH ×2 (08:42→21:06)
[2022-07-12] MEDS: Nicotine 14 MG PATCH TD SCH (08:42)
[2022-07-12] MEDS: Multivit, Therapeutic 1 TAB PO SCH (08:42)
[2022-07-12] MEDS: Thiamine 100 MG TAB PO SCH (18:07)
[2022-07-12] MEDS: Polyethylene Glycol 3350 17 GM Packet PO SCH (18:07)
[2022-07-12] MEDS: traZODone HCl 150 MG TAB PO SCH (18:07)
[2022-07-12] MEDS: Atorvastatin Calcium 40 MG TAB PO SCH (21:06)
[2022-07-12] MEDS: OLANZapine 2.5 MG TAB PO SCH (21:06)
[2022-07-13] MEDS: Levothyroxine 175 MCG TAB PO SCH (05:34)
[2022-07-13 06:57] LABS: Hemoglobin 12.4 g/dL (14.0-18.0); Mean Corpuscular HGB CONC 34.4 g/dL (32.0-36.0); Mean Corpuscular Hemoglobin 30.1 pg (27.0-31.0); Mean Corpuscular Volume 87.4 fl (78.0-98.0); Mean Platelet Volume 8.9 fL (7.4-10.4); Platelet Count 228 10x3/uL (130-400); RBC Distribution Width 13.4 % (11.5-14.5); Red Blood Cell (RBC) Count 4.12 mill/uL (4.70-6.10); White Blood Cell (WBC) Count 9.8 10x3/uL (4.8-10.8)
[2022-07-13 07:21] LABS: ALT (SGPT) 25 U/L (8-55); AST (SGOT) 21 U/L (5-34); Albumin 4.1 g/dL (3.4-4.8); Alkaline Phosphatase 90 U/L (40-110); Anion Gap 15 mmol/L (10-20); BUN (Urea Nitrogen) 26 mg/dL (8.4-25.7); Bilirubin, Total 0.5 mg/dL (0.2-1.2); Calc. Creatinine Clearance 60 mL/min (70-130); Calcium 9.6 mg/dL (7.8-10.44); Carbon Dioxide 22 mmol/L (23-31); Chloride 106 mmol/L (98-107); Estimated GFR 60; Globulin 2.4 g/dL (2.4-3.5); Glucose 85 mg/dL (80-115); Potassium 4.3 mmol/L (3.5-5.1); Protein, Total 6.5 g/dL (5.8-8.1); Sodium 139 mmol/L (136-145)
[2022-07-13 07:45] LABS: Band 2 % (5-11); Eosinophils 1 % (0-10); Lymphocytes 40 % (21-51); MDiff Complete? YES; Monocytes 6 % (0-10); Neutrophil 50 % (42-75); RBC Morphology Normal
[2022-07-13] MEDS: Famotidine 20 MG TAB PO SCH (08:00)
[2022-07-13] MEDS: Clopidogrel Bisulfate 75 MG TAB PO SCH (08:00)
[2022-07-13] MEDS: traMADol HCl 50 MG TAB PO PRN (08:00)
[2022-07-13] MEDS: Senokot S 8.6-50 MG TAB PO SCH ×2 (08:00→21:00)
[2022-07-13] MEDS: Aspirin 81 mg Enteric Coated Tablet PO SCH (08:00)
[2022-07-13] MEDS: Folic Acid 1 MG TAB PO SCH (08:00)
[2022-07-13] MEDS: Heparin 5,000 UNITS/ML VIAL SC SCH ×2 (08:01→21:00)
[2022-07-13] MEDS: Multivit, Therapeutic 1 TAB PO SCH (08:01)
[2022-07-13] MEDS: Nicotine 14 MG PATCH TD SCH (08:01)
[2022-07-13] MEDS: Acetaminophen 325 MG TAB PO PRN (12:54)
[2022-07-13] MEDS: Sodium Chloride 0.9% 1,000 ML IV SCH (18:17)
[2022-07-13] MEDS: Polyethylene Glycol 3350 17 GM Packet PO SCH (18:18)
[2022-07-13] MEDS: Thiamine 100 MG TAB PO SCH (18:18)
[2022-07-13] MEDS: traZODone HCl 150 MG TAB PO SCH (18:18)
[2022-07-13] MEDS: Atorvastatin Calcium 40 MG TAB PO SCH (21:01)
[2022-07-13] MEDS: OLANZapine 2.5 MG TAB PO SCH (21:01)
[2022-07-14] MEDS: Sodium Chloride 0.9% 1,000 ML IV SCH ×2 (00:42→19:41)
[2022-07-14] MEDS: Levothyroxine 175 MCG TAB PO SCH (05:45)
[2022-07-14 08:24] LABS: Mean Corpuscular HGB CONC 33.8 g/dL (32.0-36.0); Mean Corpuscular Volume 88.8 fl (78.0-98.0); Mean Platelet Volume 8.7 fL (7.4-10.4); Platelet Count 230 10x3/uL (130-400); RBC Distribution Width 13.4 % (11.5-14.5); Red Blood Cell (RBC) Count 4.32 mill/uL (4.70-6.10); White Blood Cell (WBC) Count 11.3 10x3/uL (4.8-10.8)
[2022-07-14 08:53] LABS: ALT (SGPT) 25 U/L (8-55); AST (SGOT) 21 U/L (5-34); Albumin 4.2 g/dL (3.4-4.8); Alkaline Phosphatase 95 U/L (40-110); Anion Gap 14 mmol/L (10-20); BUN (Urea Nitrogen) 29 mg/dL (8.4-25.7); Bilirubin, Total 0.4 mg/dL (0.2-1.2); Calc. Creatinine Clearance 57 mL/min (70-130); Calcium 10.1 mg/dL (7.8-10.44); Carbon Dioxide 24 mmol/L (23-31); Chloride 104 mmol/L (98-107); Estimated GFR 56; Globulin 2.5 g/dL (2.4-3.5); Glucose 102 mg/dL (80-115); Magnesium 1.9 mg/dL (1.6-2.6); Potassium 4.5 mmol/L (3.5-5.1); Protein, Total 6.7 g/dL (5.8-8.1); Sodium 137 mmol/L (136-145)
[2022-07-14 09:26] LABS: Band 4 % (5-11); Eosinophils 1 % (0-10); Lymphocytes 36 % (21-51); MDiff Complete? YES; Monocytes 8 % (0-10); Neutrophil 50 % (42-75); RBC Morphology Normal
[2022-07-14] MEDS: Aspirin 81 mg Enteric Coated Tablet PO SCH (09:45)
[2022-07-14] MEDS: Heparin 5,000 UNITS/ML VIAL SC SCH ×2 (09:45→19:41)
[2022-07-14] MEDS: Famotidine 20 MG TAB PO SCH (09:45)
[2022-07-14] MEDS: Senokot S 8.6-50 MG TAB PO SCH ×2 (09:45→19:45)
[2022-07-14] MEDS: Folic Acid 1 MG TAB PO SCH (09:45)
[2022-07-14] MEDS: Clopidogrel Bisulfate 75 MG TAB PO SCH (09:45)
[2022-07-14] MEDS: Multivit, Therapeutic 1 TAB PO SCH (09:46)
[2022-07-14] MEDS ORDERED: Magnesium 2 GM/50 ML(in water) 2 GM in Premix Bag 1 BAG IVPB SCH (10:00)
[2022-07-14 11:40] LABS: Bacteria/HPF None Seen HPF (None Seen); Bilirubin Negative (Negative); Blood, Urine Negative (Negative); CAUTI Indications for Culture Alt mental st,lethar; Clarity Turbid (Clear); Glucose, Urine (Dipstick) Normal (Negative); Ketone, Urine Negative (Negative); Leukocyte Negative Leu/uL (Negative); Nitrite Negative (Negative); Protein, Urine (Dipstick) Negative (Neg-Trace); RBC/HPF 0-3 HPF (0-3); Specific Gravity, Urine 1.018 (1.002-1.036); Squamous Epithelial None Seen HPF (0-3); Urobilinogen Normal mg/dL (Less than 2); WBC/HPF 0-3 HPF (0-3)
[2022-07-14 11:40] LABS: Free T4 (Free Thyroxine) 1.04 ng/dL (0.70-1.48)
[2022-07-14 11:41] LABS: Urine Culture Reflex No No
[2022-07-14] MEDS: traMADol HCl 50 MG TAB PO PRN (12:13)
[2022-07-14] MEDS: Nicotine 14 MG PATCH TD SCH (12:13)
[2022-07-14] MEDS: Thiamine 100 MG TAB PO SCH (16:10)
[2022-07-14] MEDS: Polyethylene Glycol 3350 17 GM Packet PO SCH (16:10)
[2022-07-14] MEDS: Acetaminophen 325 MG TAB PO PRN ×2 (16:12→21:56)
[2022-07-14] MEDS ORDERED: Lidocaine 2% Viscous Solution 20 ML, Aluminum & Magnesium Hydroxide 30 ML, Donnatal Eli... SSW SCH (18:00)
[2022-07-14] MEDS: traZODone HCl 150 MG TAB PO SCH (18:04)
[2022-07-14] MEDS: diphenhydrAMINE 25 MG CAP PO PRN (19:38)
[2022-07-14] MEDS: Atorvastatin Calcium 40 MG TAB PO SCH (19:39)
[2022-07-14] MEDS: OLANZapine 2.5 MG TAB PO SCH (19:44)
[2022-07-15] MEDS: Acetaminophen 325 MG TAB PO PRN (02:26)
[2022-07-15] MEDS ORDERED: Haloperidol Lactate 5 MG/ML VIAL IM SCH ×3 (02:30→03:45)
[2022-07-15] MEDS ORDERED: QUEtiapine 25 MG TAB PO SCH (02:30)
[2022-07-15] MEDS ORDERED: Lorazepam 2 MG/ML VIAL SLOW IVP SCH (02:45)
[2022-07-15] MEDS ORDERED: Haloperidol Lactate 5 MG/ML VIAL ONE (03:00)
[2022-07-15 05:14] LABS: Band 3 % (5-11); Hemoglobin 13.2 g/dL (14.0-18.0); Hypochromia SLIGHT = 6-15 cells (100X) (0-5/hpf); Lymphocytes 38 % (21-51); MDiff Complete? YES; Mean Corpuscular Hemoglobin 30.2 pg (27.0-31.0); Mean Corpuscular Volume 88.8 fl (78.0-98.0); Monocytes 6 % (0-10); Neutrophil 53 % (42-75); Platelet Count 229 10x3/uL (130-400); Platelet Morphology Comment Appears Adequate; RBC Distribution Width 13.7 % (11.5-14.5); Red Blood Cell (RBC) Count 4.36 mill/uL (4.70-6.10); White Blood Cell (WBC) Count 9.7 10x3/uL (4.8-10.8)
[2022-07-15 05:19] LABS: ALT (SGPT) 26 U/L (8-55); AST (SGOT) 26 U/L (5-34); Albumin 4.2 g/dL (3.4-4.8); Alkaline Phosphatase 96 U/L (40-110); Anion Gap 15 mmol/L (10-20); BUN (Urea Nitrogen) 25 mg/dL (8.4-25.7); Bilirubin, Total 0.4 mg/dL (0.2-1.2); Calc. Creatinine Clearance 57 mL/min (70-130); Calcium 9.4 mg/dL (7.8-10.44); Carbon Dioxide 22 mmol/L (23-31); Chloride 105 mmol/L (98-107); Estimated GFR 56; Globulin 2.6 g/dL (2.4-3.5); Glucose 110 mg/dL (80-115); Potassium 4.4 mmol/L (3.5-5.1); Protein, Total 6.8 g/dL (5.8-8.1); Sodium 138 mmol/L (136-145)
[2022-07-15] MEDS: Levothyroxine 175 MCG TAB PO SCH (06:36)
[2022-07-15] MEDS: Folic Acid 1 MG TAB PO SCH (09:39)
[2022-07-15] MEDS: Multivit, Therapeutic 1 TAB PO SCH (09:39)
[2022-07-15] MEDS: Clopidogrel Bisulfate 75 MG TAB PO SCH (09:39)
[2022-07-15] MEDS: OLANZapine 2.5 MG TAB PO SCH ×2 (09:39→20:52)
[2022-07-15] MEDS: Famotidine 20 MG TAB PO SCH (09:39)
[2022-07-15] MEDS: Senokot S 8.6-50 MG TAB PO SCH ×2 (09:39→20:52)
[2022-07-15] MEDS: Aspirin 81 mg Enteric Coated Tablet PO SCH (09:39)
[2022-07-15] MEDS: Heparin 5,000 UNITS/ML VIAL SC SCH ×2 (09:40→20:52)
[2022-07-15] MEDS: Sodium Chloride 0.9% 1,000 ML IV SCH ×2 (10:06→20:58)
[2022-07-15] MEDS: Nicotine 14 MG PATCH TD SCH (12:58)
[2022-07-15] MEDS ORDERED: Lorazepam 2 MG/ML VIAL SLOW IVP PRN (16:00)
[2022-07-15] MEDS: Polyethylene Glycol 3350 17 GM Packet PO SCH (16:41)
[2022-07-15] MEDS: Thiamine 100 MG TAB PO SCH ×2 (16:42)
[2022-07-15] MEDS: traZODone HCl 150 MG TAB PO SCH (18:52)
[2022-07-15] MEDS: Atorvastatin Calcium 40 MG TAB PO SCH (20:52)
[2022-07-15] MEDS: traMADol HCl 50 MG TAB PO PRN (21:57)
[2022-07-16 05:26] LABS: ALT (SGPT) 22 U/L (8-55); AST (SGOT) 21 U/L (5-34); Albumin 3.8 g/dL (3.4-4.8); Alkaline Phosphatase 83 U/L (40-110); Anion Gap 12 mmol/L (10-20); BUN (Urea Nitrogen) 26 mg/dL (8.4-25.7); Bilirubin, Total 0.3 mg/dL (0.2-1.2); CK (CPK) 232 U/L (30-200); Calc. Creatinine Clearance 61 mL/min (70-130); Carbon Dioxide 24 mmol/L (23-31); Chloride 107 mmol/L (98-107); Estimated GFR 60; Globulin 2.1 g/dL (2.4-3.5); Glucose 104 mg/dL (80-115); Potassium 4.4 mmol/L (3.5-5.1); Protein, Total 5.9 g/dL (5.8-8.1); Sodium 139 mmol/L (136-145)
[2022-07-16 05:31] LABS: Eosinophils 3 % (0-10); Hemoglobin 12.1 g/dL (14.0-18.0); Lymphocytes 49 % (21-51); MDiff Complete? YES; Mean Corpuscular Hemoglobin 31.3 pg (27.0-31.0); Mean Corpuscular Volume 89.4 fl (78.0-98.0); Mean Platelet Volume 8.6 fL (7.4-10.4); Metamyelocyte 1 % (0-0); Monocytes 5 % (0-10); Neutrophil 42 % (42-75); Platelet Count 210 10x3/uL (130-400); Platelet Morphology Comment Appears Adequate; RBC Distribution Width 13.6 % (11.5-14.5); RBC Morphology Normal; Red Blood Cell (RBC) Count 3.86 mill/uL (4.70-6.10); White Blood Cell (WBC) Count 9.3 10x3/uL (4.8-10.8)
[2022-07-16] MEDS: Levothyroxine 175 MCG TAB PO SCH (05:41)
[2022-07-16] MEDS: Sodium Chloride 0.9% 1,000 ML IV SCH ×2 (08:50→12:06)
[2022-07-16] MEDS: Senokot S 8.6-50 MG TAB PO SCH ×2 (08:51→21:16)
[2022-07-16] MEDS: Clopidogrel Bisulfate 75 MG TAB PO SCH (08:51)
[2022-07-16] MEDS: Famotidine 20 MG TAB PO SCH (08:51)
[2022-07-16] MEDS: Multivit, Therapeutic 1 TAB PO SCH (08:51)
[2022-07-16] MEDS: Aspirin 81 mg Enteric Coated Tablet PO SCH (08:51)
[2022-07-16] MEDS: Folic Acid 1 MG TAB PO SCH (08:51)
[2022-07-16] MEDS: Heparin 5,000 UNITS/ML VIAL SC SCH ×2 (08:51→21:15)
[2022-07-16] MEDS: OLANZapine 2.5 MG TAB PO SCH ×2 (08:51→21:16)
[2022-07-16] MEDS: Nicotine 14 MG PATCH TD SCH (14:02)
[2022-07-16] MEDS: Polyethylene Glycol 3350 17 GM Packet PO SCH (16:51)
[2022-07-16] MEDS: Thiamine 100 MG TAB PO SCH (16:52)
[2022-07-16] MEDS: Acetaminophen 325 MG TAB PO PRN (21:15)
[2022-07-16] MEDS: traZODone HCl 150 MG TAB PO SCH (21:16)
[2022-07-16] MEDS: Atorvastatin Calcium 40 MG TAB PO SCH (21:16)
[2022-07-17] MEDS ORDERED: QUEtiapine 25 MG TAB PO SCH (00:30)
[2022-07-17] MEDS: Sodium Chloride 0.9% 1,000 ML IV SCH (02:22)
[2022-07-17 05:02] LABS: ALT (SGPT) 21 U/L (8-55); AST (SGOT) 20 U/L (5-34); Albumin 3.8 g/dL (3.4-4.8); Alkaline Phosphatase 81 U/L (40-110); Anion Gap 12 mmol/L (10-20); BUN (Urea Nitrogen) 26 mg/dL (8.4-25.7); Bilirubin, Total 0.3 mg/dL (0.2-1.2); CK (CPK) 192 U/L (30-200); Calc. Creatinine Clearance 58 mL/min (70-130); Calcium 9.1 mg/dL (7.8-10.44); Carbon Dioxide 25 mmol/L (23-31); Chloride 108 mmol/L (98-107); Estimated GFR 57; Globulin 2.1 g/dL (2.4-3.5); Glucose 124 mg/dL (80-115); Magnesium 1.8 mg/dL (1.6-2.6); Potassium 4.2 mmol/L (3.5-5.1); Protein, Total 5.9 g/dL (5.8-8.1); Sodium 141 mmol/L (136-145)
[2022-07-17] MEDS: Levothyroxine 175 MCG TAB PO SCH (05:04)
[2022-07-17 05:11] LABS: Band 9 % (5-11); Hemoglobin 11.9 g/dL (14.0-18.0); Hypochromia SLIGHT = 6-15 cells (100X) (0-5/hpf); Lymphocytes 26 % (21-51); MDiff Complete? YES; Mean Corpuscular HGB CONC 35.3 g/dL (32.0-36.0); Mean Corpuscular Hemoglobin 31.7 pg (27.0-31.0); Mean Corpuscular Volume 89.8 fl (78.0-98.0); Mean Platelet Volume 9.1 fL (7.4-10.4); Monocytes 5 % (0-10); Neutrophil 60 % (42-75); Platelet Count 194 10x3/uL (130-400); Platelet Morphology Comment Appears Adequate; RBC Distribution Width 13.6 % (11.5-14.5); Red Blood Cell (RBC) Count 3.77 mill/uL (4.70-6.10); White Blood Cell (WBC) Count 8.9 10x3/uL (4.8-10.8)
[2022-07-17] MEDS ORDERED: Magnesium 2 GM/50 ML(in water) 2 GM in Premix Bag 1 BAG IVPB SCH (08:00)
[2022-07-17] MEDS: OLANZapine 2.5 MG TAB PO SCH (09:05)
[2022-07-17] MEDS: Clopidogrel Bisulfate 75 MG TAB PO SCH (09:05)
[2022-07-17] MEDS: Famotidine 20 MG TAB PO SCH (09:05)
[2022-07-17] MEDS: Folic Acid 1 MG TAB PO SCH (09:05)
[2022-07-17] MEDS: Heparin 5,000 UNITS/ML VIAL SC SCH ×2 (09:05→21:28)
[2022-07-17] MEDS: Multivit, Therapeutic 1 TAB PO SCH (09:05)
[2022-07-17] MEDS: Senokot S 8.6-50 MG TAB PO SCH ×2 (09:05→21:22)
[2022-07-17] MEDS: Aspirin 81 mg Enteric Coated Tablet PO SCH (09:05)
[2022-07-17] MEDS: Nicotine 14 MG PATCH TD SCH (15:40)
[2022-07-17] MEDS: Polyethylene Glycol 3350 17 GM Packet PO SCH (17:48)
[2022-07-17] MEDS: Thiamine 100 MG TAB PO SCH (17:48)
[2022-07-17] MEDS: traZODone HCl 150 MG TAB PO SCH (17:48)
[2022-07-17] MEDS: Atorvastatin Calcium 40 MG TAB PO SCH (21:22)
[2022-07-17] MEDS: QUEtiapine 25 MG TAB PO SCH (21:22)
[2022-07-18] MEDS: Levothyroxine 175 MCG TAB PO SCH (05:24)
[2022-07-18 05:40] LABS: ALT (SGPT) 23 U/L (8-55); AST (SGOT) 21 U/L (5-34); Albumin 4.2 g/dL (3.4-4.8); Alkaline Phosphatase 88 U/L (40-110); Anion Gap 14 mmol/L (10-20); BUN (Urea Nitrogen) 20 mg/dL (8.4-25.7); Bilirubin, Total 0.7 mg/dL (0.2-1.2); CK (CPK) 123 U/L (30-200); Calc. Creatinine Clearance 58 mL/min (70-130); Calcium 9.6 mg/dL (7.8-10.44); Carbon Dioxide 23 mmol/L (23-31); Chloride 107 mmol/L (98-107); Estimated GFR 63; Globulin 2.5 g/dL (2.4-3.5); Glucose 104 mg/dL (80-115); Magnesium 2.1 mg/dL (1.6-2.6); Potassium 4.1 mmol/L (3.5-5.1); Protein, Total 6.7 g/dL (5.8-8.1); Sodium 140 mmol/L (136-145)
[2022-07-18 06:29] LABS: Mean Corpuscular HGB CONC 33.7 g/dL (32.0-36.0); Mean Corpuscular Hemoglobin 30.3 pg (27.0-31.0); Mean Corpuscular Volume 89.7 fl (78.0-98.0); Mean Platelet Volume 8.7 fL (7.4-10.4); Platelet Count 231 10x3/uL (130-400); RBC Distribution Width 13.8 % (11.5-14.5); White Blood Cell (WBC) Count 9.3 10x3/uL (4.8-10.8)
[2022-07-18 06:34] LABS: Eosinophils 1 % (0-10); Lymphocytes 45 % (21-51); MDiff Complete? YES; Neutrophil 54 % (42-75); Platelet Morphology Comment Appears Adequate; RBC Morphology Normal
[2022-07-18] MEDS: Senokot S 8.6-50 MG TAB PO SCH ×2 (09:04→21:12)
[2022-07-18] MEDS: Clopidogrel Bisulfate 75 MG TAB PO SCH (09:04)
[2022-07-18] MEDS: Folic Acid 1 MG TAB PO SCH (09:05)
[2022-07-18] MEDS: Aspirin 81 mg Enteric Coated Tablet PO SCH (09:05)
[2022-07-18] MEDS: QUEtiapine 25 MG TAB PO SCH ×2 (09:05→21:11)
[2022-07-18] MEDS: Heparin 5,000 UNITS/ML VIAL SC SCH ×2 (09:05→21:11)
[2022-07-18] MEDS: Famotidine 20 MG TAB PO SCH (09:05)
[2022-07-18] MEDS: Multivit, Therapeutic 1 TAB PO SCH (09:05)
[2022-07-18] MEDS: Sodium Chloride 0.9% 1,000 ML IV SCH (10:35)
[2022-07-18] MEDS: Nicotine 14 MG PATCH TD SCH (12:31)
[2022-07-18] MEDS: Polyethylene Glycol 3350 17 GM Packet PO SCH (16:00)
[2022-07-18] MEDS: Thiamine 100 MG TAB PO SCH (16:00)
[2022-07-18] MEDS: traZODone HCl 150 MG TAB PO SCH (17:16)
[2022-07-18] MEDS: Atorvastatin Calcium 40 MG TAB PO SCH (21:11)
[2022-07-19 05:14] LABS: Band 1 % (5-11); Eosinophils 6 % (0-10); Hemoglobin 13.2 g/dL (14.0-18.0); Hypochromia SLIGHT = 6-15 cells (100X) (0-5/hpf); Lymphocytes 37 % (21-51); MDiff Complete? YES; Mean Corpuscular HGB CONC 34.4 g/dL (32.0-36.0); Mean Corpuscular Hemoglobin 30.8 pg (27.0-31.0); Mean Corpuscular Volume 89.6 fl (78.0-98.0); Mean Platelet Volume 8.4 fL (7.4-10.4); Monocytes 4 % (0-10); Neutrophil 44 % (42-75); Platelet Count 214 10x3/uL (130-400); Platelet Morphology Comment Appears Adequate; RBC Distribution Width 13.8 % (11.5-14.5); Reactive Lymphocytes 8 % (0-10); Red Blood Cell (RBC) Count 4.29 mill/uL (4.70-6.10); White Blood Cell (WBC) Count 8.4 10x3/uL (4.8-10.8)
[2022-07-19 05:23] LABS: ALT (SGPT) 19 U/L (8-55); AST (SGOT) 20 U/L (5-34); Albumin 3.8 g/dL (3.4-4.8); Alkaline Phosphatase 83 U/L (40-110); Anion Gap 15 mmol/L (10-20); BUN (Urea Nitrogen) 25 mg/dL (8.4-25.7); Bilirubin, Total 0.5 mg/dL (0.2-1.2); CK (CPK) 57 U/L (30-200); Calc. Creatinine Clearance 56 mL/min (70-130); Calcium 9.3 mg/dL (7.8-10.44); Carbon Dioxide 22 mmol/L (23-31); Chloride 109 mmol/L (98-107); Estimated GFR 60; Globulin 2.3 g/dL (2.4-3.5); Glucose 90 mg/dL (80-115); Potassium 4.3 mmol/L (3.5-5.1); Protein, Total 6.1 g/dL (5.8-8.1); Sodium 142 mmol/L (136-145)
[2022-07-19] MEDS: Levothyroxine 175 MCG TAB PO SCH (06:23)
[2022-07-19] MEDS ORDERED: Magnesium 2 GM/50 ML(in water) 2 GM in Premix Bag 1 BAG IVPB SCH (08:00)
[2022-07-19] MEDS: Multivit, Therapeutic 1 TAB PO SCH (08:09)
[2022-07-19] MEDS: Famotidine 20 MG TAB PO SCH (08:09)
[2022-07-19] MEDS: QUEtiapine 25 MG TAB PO SCH ×2 (08:09→22:03)
[2022-07-19] MEDS: Clopidogrel Bisulfate 75 MG TAB PO SCH (08:09)
[2022-07-19] MEDS: Senokot S 8.6-50 MG TAB PO SCH ×2 (08:09→22:02)
[2022-07-19] MEDS: Aspirin 81 mg Enteric Coated Tablet PO SCH (08:09)
[2022-07-19] MEDS: Folic Acid 1 MG TAB PO SCH (08:09)
[2022-07-19] MEDS: Heparin 5,000 UNITS/ML VIAL SC SCH ×2 (08:10→22:02)
[2022-07-19] MEDS: Acetaminophen 325 MG TAB PO PRN ×3 (13:41→22:03)
[2022-07-19] MEDS: Nicotine 14 MG PATCH TD SCH (13:41)
[2022-07-19] MEDS: Sodium Chloride 0.9% 1,000 ML IV SCH (13:42)
[2022-07-19] MEDS: Polyethylene Glycol 3350 17 GM Packet PO SCH (17:40)
[2022-07-19] MEDS: traZODone HCl 150 MG TAB PO SCH (17:41)
[2022-07-19] MEDS: Thiamine 100 MG TAB PO SCH (17:41)
[2022-07-19] MEDS: Atorvastatin Calcium 40 MG TAB PO SCH (22:03)
[2022-07-20] MEDS: Levothyroxine 175 MCG TAB PO SCH (05:04)
[2022-07-20 05:31] LABS: ALT (SGPT) 23 U/L (8-55); AST (SGOT) 19 U/L (5-34); Albumin 3.7 g/dL (3.4-4.8); Alkaline Phosphatase 88 U/L (40-110); Anion Gap 11 mmol/L (10-20); BUN (Urea Nitrogen) 28 mg/dL (8.4-25.7); Bilirubin, Total 0.5 mg/dL (0.2-1.2); CK (CPK) 58 U/L (30-200); Calc. Creatinine Clearance 59 mL/min (70-130); Carbon Dioxide 22 mmol/L (23-31); Chloride 110 mmol/L (98-107); Estimated GFR 65; Globulin 2.2 g/dL (2.4-3.5); Glucose 85 mg/dL (80-115); Magnesium 2.1 mg/dL (1.6-2.6); Potassium 4.2 mmol/L (3.5-5.1); Protein, Total 5.9 g/dL (5.8-8.1); Sodium 139 mmol/L (136-145)
[2022-07-20 06:06] LABS: Eosinophils 1 % (0-10); Hemoglobin 12.3 g/dL (14.0-18.0); Lymphocytes 39 % (21-51); MDiff Complete? YES; Mean Corpuscular HGB CONC 34.1 g/dL (32.0-36.0); Mean Corpuscular Hemoglobin 30.6 pg (27.0-31.0); Mean Corpuscular Volume 89.8 fl (78.0-98.0); Mean Platelet Volume 8.6 fL (7.4-10.4); Monocytes 6 % (0-10); Neutrophil 54 % (42-75); Platelet Count 206 10x3/uL (130-400); Platelet Morphology Comment Appears Adequate; RBC Distribution Width 13.8 % (11.5-14.5); RBC Morphology Normal; Red Blood Cell (RBC) Count 4.01 mill/uL (4.70-6.10); White Blood Cell (WBC) Count 7.9 10x3/uL (4.8-10.8)
[2022-07-20] MEDS: Senokot S 8.6-50 MG TAB PO SCH ×2 (08:20→19:21)
[2022-07-20] MEDS: Multivit, Therapeutic 1 TAB PO SCH (08:20)
[2022-07-20] MEDS: QUEtiapine 25 MG TAB PO SCH ×2 (08:20→19:21)
[2022-07-20] MEDS: Aspirin 81 mg Enteric Coated Tablet PO SCH (08:21)
[2022-07-20] MEDS: Famotidine 20 MG TAB PO SCH (08:21)
[2022-07-20] MEDS: Folic Acid 1 MG TAB PO SCH (08:21)
[2022-07-20] MEDS: Clopidogrel Bisulfate 75 MG TAB PO SCH (08:21)
[2022-07-20] MEDS: Heparin 5,000 UNITS/ML VIAL SC SCH ×2 (08:21→19:44)
[2022-07-20] MEDS: Nicotine 14 MG PATCH TD SCH (12:01)
[2022-07-20] MEDS: Acetaminophen 325 MG TAB PO PRN ×2 (14:50→19:32)
[2022-07-20] MEDS: Polyethylene Glycol 3350 17 GM Packet PO SCH (16:20)
[2022-07-20] MEDS: Thiamine 100 MG TAB PO SCH (16:20)
[2022-07-20] MEDS: traZODone HCl 150 MG TAB PO SCH (18:06)
[2022-07-20] MEDS: Atorvastatin Calcium 40 MG TAB PO SCH (19:20)
[2022-07-20] MEDS: diphenhydrAMINE 25 MG CAP PO PRN (20:51)
[2022-07-20] MEDS: Lorazepam 2 MG/ML VIAL SLOW IVP PRN (22:12)
[2022-07-21] MEDS: Lorazepam 2 MG/ML VIAL SLOW IVP PRN (04:45)
[2022-07-21] MEDS: Levothyroxine 175 MCG TAB PO SCH (04:54)
[2022-07-21] MEDS: QUEtiapine 25 MG TAB PO SCH ×2 (09:13→20:23)
[2022-07-21] MEDS: Heparin 5,000 UNITS/ML VIAL SC SCH ×2 (09:13→20:24)
[2022-07-21] MEDS: Famotidine 20 MG TAB PO SCH (09:13)
[2022-07-21] MEDS: Clopidogrel Bisulfate 75 MG TAB PO SCH (09:13)
[2022-07-21] MEDS: Folic Acid 1 MG TAB PO SCH (09:13)
[2022-07-21] MEDS: Multivit, Therapeutic 1 TAB PO SCH (09:13)
[2022-07-21] MEDS: Aspirin 81 mg Enteric Coated Tablet PO SCH (09:13)
[2022-07-21] MEDS: Senokot S 8.6-50 MG TAB PO SCH ×2 (09:13→20:24)
[2022-07-21] MEDS: Nicotine 14 MG PATCH TD SCH (14:37)
[2022-07-21] MEDS: Acetaminophen 325 MG TAB PO PRN (14:37)
[2022-07-21] MEDS: Thiamine 100 MG TAB PO SCH (17:43)
[2022-07-21] MEDS: Polyethylene Glycol 3350 17 GM Packet PO SCH (17:43)
[2022-07-21] MEDS: traZODone HCl 150 MG TAB PO SCH (20:24)
[2022-07-21] MEDS: Atorvastatin Calcium 40 MG TAB PO SCH (20:24)
[2022-07-22] MEDS: Levothyroxine 175 MCG TAB PO SCH (06:26)
[2022-07-22 07:21] LABS: Anion Gap 15 mmol/L (10-20); BUN (Urea Nitrogen) 27 mg/dL (8.4-25.7); CK (CPK) 37 U/L (30-200); Calc. Creatinine Clearance 54 mL/min (70-130); Calcium 9.7 mg/dL (7.8-10.44); Carbon Dioxide 22 mmol/L (23-31); Chloride 106 mmol/L (98-107); Estimated GFR 57; Glucose 89 mg/dL (80-115); Potassium 4.4 mmol/L (3.5-5.1); Sodium 139 mmol/L (136-145)
[2022-07-22] MEDS: Multivit, Therapeutic 1 TAB PO SCH (09:59)
[2022-07-22] MEDS: Senokot S 8.6-50 MG TAB PO SCH ×2 (09:59→20:30)
[2022-07-22] MEDS: QUEtiapine 25 MG TAB PO SCH ×2 (09:59→20:30)
[2022-07-22] MEDS: Clopidogrel Bisulfate 75 MG TAB PO SCH (09:59)
[2022-07-22] MEDS: Aspirin 81 mg Enteric Coated Tablet PO SCH (09:59)
[2022-07-22] MEDS: Heparin 5,000 UNITS/ML VIAL SC SCH ×2 (09:59→20:30)
[2022-07-22] MEDS: Folic Acid 1 MG TAB PO SCH (09:59)
[2022-07-22] MEDS: Famotidine 20 MG TAB PO SCH (09:59)
[2022-07-22] MEDS: Nicotine 14 MG PATCH TD SCH (13:37)
[2022-07-22] MEDS: Acetaminophen 325 MG TAB PO PRN ×3 (14:40→21:52)
[2022-07-22] MEDS: traZODone HCl 150 MG TAB PO SCH (18:22)
[2022-07-22] MEDS: Thiamine 100 MG TAB PO SCH (18:22)
[2022-07-22] MEDS: Polyethylene Glycol 3350 17 GM Packet PO SCH (18:23)
[2022-07-22] MEDS: Atorvastatin Calcium 40 MG TAB PO SCH (20:30)
[2022-07-22] MEDS: diphenhydrAMINE 25 MG CAP PO PRN (23:03)
[2022-07-23] MEDS: Levothyroxine 175 MCG TAB PO SCH (06:30)
[2022-07-23] MEDS: Acetaminophen 325 MG TAB PO PRN ×4 (06:30→21:01)
[2022-07-23] MEDS: Famotidine 20 MG TAB PO SCH (08:11)
[2022-07-23] MEDS: Aspirin 81 mg Enteric Coated Tablet PO SCH (08:11)
[2022-07-23] MEDS: QUEtiapine 25 MG TAB PO SCH ×2 (08:11→21:01)
[2022-07-23] MEDS: Folic Acid 1 MG TAB PO SCH (08:11)
[2022-07-23] MEDS: Senokot S 8.6-50 MG TAB PO SCH ×2 (08:11→21:02)
[2022-07-23] MEDS: Clopidogrel Bisulfate 75 MG TAB PO SCH (08:11)
[2022-07-23] MEDS: Multivit, Therapeutic 1 TAB PO SCH (08:11)
[2022-07-23] MEDS: Heparin 5,000 UNITS/ML VIAL SC SCH ×2 (08:12→21:02)
[2022-07-23] MEDS: OLANZapine 5 MG TAB PO SCH (10:30)
[2022-07-23] MEDS: Nicotine 14 MG PATCH TD SCH (14:04)
[2022-07-23] MEDS: Thiamine 100 MG TAB PO SCH (17:38)
[2022-07-23] MEDS: Polyethylene Glycol 3350 17 GM Packet PO SCH (17:39)
[2022-07-23] MEDS: traZODone HCl 150 MG TAB PO SCH (21:02)
[2022-07-23] MEDS: Atorvastatin Calcium 40 MG TAB PO SCH (21:02)
[2022-07-23] MEDS: Lorazepam 2 MG/ML VIAL SLOW IVP PRN (23:18)
[2022-07-24] MEDS: Levothyroxine 175 MCG TAB PO SCH (06:15)
[2022-07-24 06:16] LABS: Hemoglobin 13.5 g/dL (14.0-18.0); Mean Corpuscular HGB CONC 33.1 g/dL (32.0-36.0); Mean Corpuscular Hemoglobin 29.8 pg (27.0-31.0); Mean Platelet Volume 8.4 fL (7.4-10.4); Platelet Count 229 10x3/uL (130-400); RBC Distribution Width 14.1 % (11.5-14.5); Red Blood Cell (RBC) Count 4.52 mill/uL (4.70-6.10); White Blood Cell (WBC) Count 8.8 10x3/uL (4.8-10.8)
[2022-07-24 06:34] LABS: Anion Gap 13 mmol/L (10-20); BUN (Urea Nitrogen) 28 mg/dL (8.4-25.7); Calc. Creatinine Clearance 54 mL/min (70-130); Calcium 9.9 mg/dL (7.8-10.44); Carbon Dioxide 22 mmol/L (23-31); Chloride 105 mmol/L (98-107); Estimated GFR 57; Glucose 110 mg/dL (80-115); Potassium 4.1 mmol/L (3.5-5.1); Sodium 136 mmol/L (136-145)
[2022-07-24] MEDS: Acetaminophen 325 MG TAB PO PRN (07:56)
[2022-07-24] MEDS: QUEtiapine 25 MG TAB PO SCH ×2 (07:56→19:53)
[2022-07-24 09:00] LABS: Band 7 % (5-11); Eosinophils 2 % (0-10); Lymphocytes 36 % (21-51); MDiff Complete? YES; Monocytes 3 % (0-10); Neutrophil 45 % (42-75); Platelet Morphology Comment Appears Adequate; RBC Morphology Within Normal Limits; Reactive Lymphocytes 7 % (0-10)
[2022-07-24] MEDS: Haloperidol Lactate 5 MG/ML VIAL IM PRN (13:15)
[2022-07-24] MEDS: Lorazepam 2 MG/ML VIAL SLOW IVP PRN ×2 (13:46→19:54)
[2022-07-24] MEDS: Famotidine 20 MG TAB PO SCH (17:37)
[2022-07-24] MEDS: Folic Acid 1 MG TAB PO SCH (17:37)
[2022-07-24] MEDS: Aspirin 81 mg Enteric Coated Tablet PO SCH (17:37)
[2022-07-24] MEDS: Clopidogrel Bisulfate 75 MG TAB PO SCH (17:37)
[2022-07-24] MEDS: OLANZapine 5 MG TAB PO SCH (17:38)
[2022-07-24] MEDS: Senokot S 8.6-50 MG TAB PO SCH ×2 (17:38→19:53)
[2022-07-24] MEDS: Multivit, Therapeutic 1 TAB PO SCH (17:38)
[2022-07-24] MEDS: Heparin 5,000 UNITS/ML VIAL SC SCH ×2 (17:38→20:02)
[2022-07-24] MEDS: Polyethylene Glycol 3350 17 GM Packet PO SCH (17:39)
[2022-07-24] MEDS: Nicotine 14 MG PATCH TD SCH (17:39)
[2022-07-24] MEDS: Thiamine 100 MG TAB PO SCH (17:39)
[2022-07-24] MEDS: Atorvastatin Calcium 40 MG TAB PO SCH (19:54)
[2022-07-25] MEDS: Acetaminophen 325 MG TAB PO PRN ×2 (03:10→21:28)
[2022-07-25] MEDS: Levothyroxine 175 MCG TAB PO SCH (05:29)
[2022-07-25] MEDS: Famotidine 20 MG TAB PO SCH (08:20)
[2022-07-25] MEDS: Aspirin 81 mg Enteric Coated Tablet PO SCH (08:20)
[2022-07-25] MEDS: QUEtiapine 25 MG TAB PO SCH ×2 (08:20→20:35)
[2022-07-25] MEDS: Folic Acid 1 MG TAB PO SCH (08:20)
[2022-07-25] MEDS: OLANZapine 5 MG TAB PO SCH (08:20)
[2022-07-25] MEDS: Heparin 5,000 UNITS/ML VIAL SC SCH (08:20)
[2022-07-25] MEDS: Clopidogrel Bisulfate 75 MG TAB PO SCH (08:20)
[2022-07-25] MEDS: Multivit, Therapeutic 1 TAB PO SCH (08:20)
[2022-07-25] MEDS: Senokot S 8.6-50 MG TAB PO SCH ×2 (08:20→20:35)
[2022-07-25] MEDS: Nicotine 14 MG PATCH TD SCH (13:37)
[2022-07-25] MEDS: Polyethylene Glycol 3350 17 GM Packet PO SCH (16:31)
[2022-07-25] MEDS: Thiamine 100 MG TAB PO SCH (16:31)
[2022-07-25] MEDS: Atorvastatin Calcium 40 MG TAB PO SCH (20:36)
[2022-07-25] MEDS: Lorazepam 2 MG/ML VIAL SLOW IVP PRN (23:31)
[2022-07-26] MEDS ORDERED: Lorazepam 2 MG/ML VIAL SLOW IVP PRN (04:37)
[2022-07-26] MEDS ORDERED: Lorazepam 2 MG/ML VIAL SLOW IVP SCH (04:45)
[2022-07-26] MEDS: Levothyroxine 175 MCG TAB PO SCH (05:51)
[2022-07-26] MEDS: Acetaminophen 325 MG TAB PO PRN (10:02)
[2022-07-26] MEDS: QUEtiapine 25 MG TAB PO SCH ×3 (10:04→20:58)
[2022-07-26] MEDS: Senokot S 8.6-50 MG TAB PO SCH ×2 (10:04→20:26)
[2022-07-26] MEDS: Multivit, Therapeutic 1 TAB PO SCH (10:04)
[2022-07-26] MEDS: OLANZapine 5 MG TAB PO SCH (10:05)
[2022-07-26] MEDS: Folic Acid 1 MG TAB PO SCH (10:05)
[2022-07-26] MEDS: Aspirin 81 mg Enteric Coated Tablet PO SCH (10:05)
[2022-07-26] MEDS: Famotidine 20 MG TAB PO SCH (10:05)
[2022-07-26] MEDS: Clopidogrel Bisulfate 75 MG TAB PO SCH (10:05)
[2022-07-26] MEDS: Lorazepam 2 MG/ML VIAL SLOW IVP PRN ×2 (13:05→20:22)
[2022-07-26] MEDS: Nicotine 14 MG PATCH TD SCH (13:05)
[2022-07-26] MEDS: Polyethylene Glycol 3350 17 GM Packet PO SCH (15:36)
[2022-07-26] MEDS: Haloperidol Lactate 5 MG/ML VIAL IM PRN (15:36)
[2022-07-26] MEDS: Thiamine 100 MG TAB PO SCH (17:23)
[2022-07-26] MEDS: Atorvastatin Calcium 40 MG TAB PO SCH (20:26)
[2022-07-27] MEDS: Lorazepam 2 MG/ML VIAL SLOW IVP PRN ×3 (03:00→13:56)
[2022-07-27] MEDS: Levothyroxine 175 MCG TAB PO SCH (07:00)
[2022-07-27] MEDS: Acetaminophen 325 MG TAB PO PRN ×2 (08:21→21:13)
[2022-07-27] MEDS: OLANZapine 5 MG TAB PO SCH (08:22)
[2022-07-27] MEDS: Aspirin 81 mg Enteric Coated Tablet PO SCH (08:22)
[2022-07-27] MEDS: QUEtiapine 25 MG TAB PO SCH (08:22)
[2022-07-27] MEDS: Famotidine 20 MG TAB PO SCH (08:22)
[2022-07-27] MEDS: Senokot S 8.6-50 MG TAB PO SCH ×2 (08:22→21:13)
[2022-07-27] MEDS: Clopidogrel Bisulfate 75 MG TAB PO SCH (08:23)
[2022-07-27] MEDS: Multivit, Therapeutic 1 TAB PO SCH (08:23)
[2022-07-27] MEDS: Folic Acid 1 MG TAB PO SCH (08:23)
[2022-07-27] MEDS: Nicotine 14 MG PATCH TD SCH (13:56)
[2022-07-27] MEDS: Polyethylene Glycol 3350 17 GM Packet PO SCH (16:14)
[2022-07-27] MEDS: Thiamine 100 MG TAB PO SCH (16:14)
[2022-07-27] MEDS ORDERED: QUEtiapine 25 MG TAB PO SCH (21:00)
[2022-07-27] MEDS: Atorvastatin Calcium 40 MG TAB PO SCH (21:13)
[2022-07-27] MEDS: diphenhydrAMINE 25 MG CAP PO PRN (21:14)
[2022-07-27] MEDS: Lorazepam 0.5 MG TAB PO PRN (22:10)
[2022-07-28] MEDS: Levothyroxine 175 MCG TAB PO SCH (05:46)
[2022-07-28] MEDS: Famotidine 20 MG TAB PO SCH (09:03)
[2022-07-28] MEDS: Clopidogrel Bisulfate 75 MG TAB PO SCH (09:04)
[2022-07-28] MEDS: Folic Acid 1 MG TAB PO SCH (09:04)
[2022-07-28] MEDS: Senokot S 8.6-50 MG TAB PO SCH (09:04)
[2022-07-28] MEDS: Multivit, Therapeutic 1 TAB PO SCH (09:04)
[2022-07-28] MEDS: Aspirin 81 mg Enteric Coated Tablet PO SCH (09:04)
[2022-07-28] MEDS: Lorazepam 0.5 MG TAB PO PRN ×2 (09:04→13:15)
[2022-07-28] MEDS: Acetaminophen 325 MG TAB PO PRN (09:24)
[2022-07-28] MEDS: Nicotine 14 MG PATCH TD SCH (13:15)
[2022-07-28] MEDS ORDERED: Nicotine 14 MG PATCH TD PRN (14:41)
[2022-07-28] MEDS ORDERED: Electrolyte Replacement Protocol 1 EACH FS SCH (14:45)
[2022-07-28] MEDS ORDERED: cefTRIAXone\\ROCEPHIN 2 GM in Sodium Chloride 0.9% 100 ML IVPB SCH (15:00)
[2022-07-28] MEDS ORDERED: Electrolyte Replacement Protocol FS PRN (15:00)
[2022-07-28 15:14] LABS: #Basophils 0.1 thou/uL (0.0-0.2); #Eosinphils 0.2 thou/uL (0.0-0.7); #Monocytes 0.8 thou/uL (0.11-0.59); #Neutrophils 5.7 thou/uL (1.40-6.50); %Basophils 0.6 % (0.0-1.0); %Eosinophils 1.8 % (0.0-10.0); %Lymphocytes 20.5 % (21.0-51.0); %Monocytes 9.2 % (0.0-10.0); %Neutrophils 67.7 % (42.0-75.0); Hemoglobin 14.3 g/dL (14.0-18.0); Mean Corpuscular Hemoglobin 29.3 pg (27.0-31.0); Mean Corpuscular Volume 88.7 fl (78.0-98.0); Mean Platelet Volume 10.5 fL (7.4-10.4); Platelet Count 295 10x3/uL (130-400); RBC Distribution Width 14.7 % (11.5-14.5); Red Blood Cell (RBC) Count 4.88 mill/uL (4.70-6.10); White Blood Cell (WBC) Count 8.5 10x3/uL (4.8-10.8)
[2022-07-28 15:36] LABS: Anion Gap 14 mmol/L (10-20); BUN (Urea Nitrogen) 35 mg/dL (8.4-25.7); Calc. Creatinine Clearance 52 mL/min (70-130); Calcium 10.4 mg/dL (7.8-10.44); Carbon Dioxide 24 mmol/L (23-31); Chloride 105 mmol/L (98-107); Estimated GFR 55; Glucose 145 mg/dL (80-115); Phosphorus 3.9 mg/dL (2.3-4.7); Potassium 4.3 mmol/L (3.5-5.1); Sodium 139 mmol/L (136-145)
[2022-07-28] MEDS: Polyethylene Glycol 3350 17 GM Packet PO SCH (16:10)
[2022-07-28] MEDS: Thiamine 100 MG TAB PO SCH (16:10)
[2022-07-28 16:23] VITALS: BP 118/82; TEMP 97.4
[2022-07-28] MEDS ORDERED: QUEtiapine 25 MG TAB PO SCH (21:00)
== END 2022-07-28 17:38 | disposition home or self-care (01) | DRG 64 ==
LOC: ERS 03:05 → ERHOLD 04:43 → NEURO 06:38 → T4-B 07-06 16:13 → 2NO 07-15 04:17 → T4-B 07-20 09:20
PROVIDERS: ADMIT Internal Medicine; ATTEND Internal Medicine
DX: I63.81 Other cerebral infarction due to occlusion or stenosis of small artery (principal); A41.9 Sepsis, unspecified organism; G92.8 Other toxic encephalopathy; R65.20 Severe sepsis without septic shock; I69.351 Hemiplegia and hemiparesis following cerebral infarction affecting right dominant side; E87.20 Acidosis, unspecified; N17.9 Acute kidney failure, unspecified; F01.511 Vascular dementia, unspecified severity, with agitation; N13.6 Pyonephrosis; R29.708 NIHSS score 8; J44.9 Chronic obstructive pulmonary disease, unspecified; E78.5 Hyperlipidemia, unspecified; G40.909 Epilepsy, unspecified, not intractable, without status epilepticus; E89.0 Postprocedural hypothyroidism; F17.210 Nicotine dependence, cigarettes, uncomplicated; F12.10 Cannabis abuse, uncomplicated; F15.10 Other stimulant abuse, uncomplicated; N18.30 Chronic kidney disease, stage 3 unspecified; D63.1 Anemia in chronic kidney disease; I12.9 Hypertensive chronic kidney disease with stage 1 through stage 4 chronic kidney disease, or unspecified chronic kidney disease; F11.10 Opioid abuse, uncomplicated; F13.10 Sedative, hypnotic or anxiolytic abuse, uncomplicated; M25.531 Pain in right wrist; K59.00 Constipation, unspecified; E87.6 Hypokalemia; Z71.51 Drug abuse counseling and surveillance of drug abuser; Z87.440 Personal history of urinary (tract) infections; Z78.1 Physical restraint status; I69.322 Dysarthria following cerebral infarction; Z87.442 Personal history of urinary calculi; Z88.6 Allergy status to analgesic agent; Z88.5 Allergy status to narcotic agent; Z88.8 Allergy status to other drugs, medicaments and biological substances; Z79.890 Hormone replacement therapy; Z79.899 Other long term (current) drug therapy; Z83.3 Family history of diabetes mellitus; Z82.49 Family history of ischemic heart disease and other diseases of the circulatory system; Z91.148 Patient's other noncompliance with medication regimen for other reason
CPT/HCPCS: 36415; 36416; 70450; 70551; 71045; 71250; 74018; 74176; 74177; 80048; 80053; 80061; 81001; 82550; 83605; 83735; 84100; 84439; 84443; 84481; 85025; 87040; 93005; 93010; 93306; 93880; 95816; 95819; 95957; 96374; 96375; J0696; J1630; J1644; J1650; J1885; J2060; J2405; J3370-JW; J3411; J3475; J3490; J7042; J7050

== ENCOUNTER 2023-03-12 21:33 | Inpatient (IN) | payer OTHER ==
[2023-03-12] MEDS ORDERED: Propofol 1,000 MG/100 ML VIAL IV ONE (21:37)
[2023-03-12] MEDS ORDERED: Ipratropium/Albuterol 3 ML NEB ONE (21:47)
[2023-03-12 22:06] LABS: #Basophils 0.1 thou/uL (0.0-0.2); #Eosinphils 0.1 thou/uL (0.0-0.7); #Monocytes 0.2 thou/uL (0.11-0.59); #Neutrophils 9.4 thou/uL (1.40-6.50); %Basophils 0.5 % (0.0-1.0); %Eosinophils 0.8 % (0.0-10.0); %Lymphocytes 11.4 % (21.0-51.0); %Monocytes 2.1 % (0.0-10.0); %Neutrophils 84.5 % (42.0-75.0); Hematocrit 36.3 % (42.0-52.0); Hemoglobin 11.4 g/dL (14.0-18.0); Mean Corpuscular HGB CONC 31.4 g/dL (32.0-36.0); Mean Corpuscular Hemoglobin 29.6 pg (27.0-31.0); Mean Corpuscular Volume 94.3 fl (78.0-98.0); Mean Platelet Volume 9.5 fL (7.4-10.4); Platelet Count 344 10x3/uL (130-400); RBC Distribution Width 15.5 % (11.5-14.5); Red Blood Cell (RBC) Count 3.85 mill/uL (4.70-6.10); White Blood Cell (WBC) Count 11.2 10x3/uL (4.8-10.8)
[2023-03-12 22:11] LABS: Actual Bicarbonate (HCO3a) 23.4 mEq/L (22-28); CO2 Tension 37.6 mmHg (35.0-45.0); Carboxyhemoglobin (COHb) 0.3 gm% (0.0-3.0); Hematocrit-ABG 34 % (42.0-52.0); Hemoglobin (Hb) 11.7 g/dL (14.0-18.0); O2 Tension (PaO2), arterial 437.4 mmHg (> 80.0); Potassium - ABG Lab 4.35 mmol/L (3.70-5.30); pH, Arterial 7.411 (7.35-7.45)
[2023-03-12 22:12] LABS: Puncture Site LB
[2023-03-12] MEDS ORDERED: cefTRIAXone (ROCEPHIN) 2 GM VIAL ONE (22:17)
[2023-03-12] MEDS ORDERED: Sodium Chloride 0.9% 100 ML ONE (22:17)
[2023-03-12 22:27] LABS: Bacteria/HPF None Seen HPF (None Seen); Bilirubin Negative (Negative); Blood, Urine Negative (Negative); CAUTI Indications for Culture Alt mental st,lethar; Clarity Clear (Clear); Glucose, Urine (Dipstick) Normal (Negative); Ketone, Urine Trace mg/dL (Negative); Leukocyte Negative Leu/uL (Negative); Nitrite Negative (Negative); Protein, Urine (Dipstick) Negative (Neg-Trace); RBC/HPF None Seen HPF (0-3); Specific Gravity, Urine 1.014 (1.002-1.036); Squamous Epithelial None Seen HPF (0-3); Urobilinogen Normal mg/dL (Less than 2); WBC/HPF 0-3 HPF (0-3)
[2023-03-12 22:29] LABS: Urine Culture Reflex No No
[2023-03-12 22:35] LABS: Amphetamine Detected (NotDetected); Barbiturates Screen Not Detected (NotDetected); Benzodiazepine Screen Not Detected (NotDetected); Cocaine Metabolite Screen Not Detected (NotDetected); Methadone Not Detected (NotDetected); Methamphetamine Detected (NotDetected); Opiate Screen Not Detected (NotDetected); Oxycodone Screen Not Detected (NotDetected); Phencyclidine (PCP) Not Detected (NotDetected); THC/Cannabinoid Screen Detected (NotDetected); Tricyclic Screen Not Detected (NotDetected)
[2023-03-12 22:46] LABS: ALT (SGPT) 35 U/L (8-55); AST (SGOT) 40 U/L (5-34); Alkaline Phosphatase 119 U/L (40-110); Anion Gap 17 mmol/L (10-20); BUN (Urea Nitrogen) 19 mg/dL (8.4-25.7); Bilirubin, Total 0.5 mg/dL (0.2-1.2); Calc. Creatinine Clearance 0 mL/min (70-130); Calcium 8.4 mg/dL (7.8-10.44); Carbon Dioxide 17 mmol/L (23-31); Chloride 108 mmol/L (98-107); Estimated GFR 64; Globulin 2.7 g/dL (2.4-3.5); Glucose 112 mg/dL (80-115); Magnesium 2.4 mg/dL (1.6-2.6); Potassium 4.2 mmol/L (3.5-5.1); Protein, Total 6.7 g/dL (5.8-8.1); Sodium 138 mmol/L (136-145)
[2023-03-12 22:54] LABS: Troponin I Less than 0.010 ng/mL (< 0.028)
[2023-03-12] MEDS ORDERED: Fentanyl CADD 100 ML IV SCH (23:00)
[2023-03-13] MEDS ORDERED: DISCONTINUE PREVIOUS NARCOTIC PAIN MEDICATIONS AND BENZODIAZEPINES FS SCH (00:45)
[2023-03-13] MEDS ORDERED: Morphine 2 MG/ML VIAL SLOW IVP PRN (00:45)
[2023-03-13] MEDS ORDERED: Piperacillin/Tazobactam 3.375 GM in Sodium Chloride 0.9% 100 ML IVPB SCH (00:45)
[2023-03-13] MEDS ORDERED: Fentanyl CADD 100 ML IV SCH (00:45)
[2023-03-13] MEDS ORDERED: Propofol BOLUS 1,000 MG/100 ML VIAL IV PRN (00:45)
[2023-03-13] MEDS ORDERED: Fentanyl BOLUS 250 ML IVPB PRN (00:45)
[2023-03-13] MEDS ORDERED: Ipratropium/Albuterol 3 ML NEB EZPAP PRN (00:48)
[2023-03-13] MEDS ORDERED: Ondansetron PF 4 MG/2 ML Vial IVP PRN (00:48)
[2023-03-13] MEDS: Ipratropium/Albuterol 3 ML NEB NEB SCH ×6 (02:52→23:23)
[2023-03-13] MEDS: Lorazepam 2 MG/ML VIAL SLOW IVP PRN ×3 (04:39→11:46)
[2023-03-13 04:45] LABS: #Monocytes 0.1 thou/uL (0.11-0.59); #Neutrophils 7.7 thou/uL (1.40-6.50); %Basophils 0.2 % (0.0-1.0); %Monocytes 0.7 % (0.0-10.0); %Neutrophils 82.5 % (42.0-75.0); Hematocrit 32.1 % (42.0-52.0); Hemoglobin 10.2 g/dL (14.0-18.0); Mean Corpuscular HGB CONC 31.8 g/dL (32.0-36.0); Mean Corpuscular Hemoglobin 29.2 pg (27.0-31.0); Mean Platelet Volume 9.9 fL (7.4-10.4); Platelet Count 333 10x3/uL (130-400); RBC Distribution Width 15.6 % (11.5-14.5); Red Blood Cell (RBC) Count 3.49 mill/uL (4.70-6.10); White Blood Cell (WBC) Count 9.3 10x3/uL (4.8-10.8)
[2023-03-13 05:09] LABS: ALT (SGPT) 30 U/L (8-55); AST (SGOT) 24 U/L (5-34); Albumin 3.4 g/dL (3.4-4.8); Alkaline Phosphatase 96 U/L (40-110); Anion Gap 14 mmol/L (10-20); BUN (Urea Nitrogen) 25 mg/dL (8.4-25.7); Bilirubin, Total 0.6 mg/dL (0.2-1.2); Calc. Creatinine Clearance 52 mL/min (70-130); Calcium 7.9 mg/dL (7.8-10.44); Carbon Dioxide 22 mmol/L (23-31); Chloride 107 mmol/L (98-107); Estimated GFR 57; Globulin 2.5 g/dL (2.4-3.5); Glucose 207 mg/dL (80-115); Potassium 4.4 mmol/L (3.5-5.1); Protein, Total 5.9 g/dL (5.8-8.1); Sodium 139 mmol/L (136-145)
[2023-03-13] MEDS ORDERED: NOREPINEPHRINE 8 MG/250 ML-D5W 250 ML ONE (05:26)
[2023-03-13] MEDS ORDERED: NOREPINEPHRINE 8 MG/250 ML-D5W 250 ML IVPB PRN (05:28)
[2023-03-13] MEDS ORDERED: Sodium Chloride 0.9% 500 ML IV SCH (05:30)
[2023-03-13] MEDS: Piperacillin/Tazobactam 3.375 GM in Sodium Chloride 0.9% 100 ML IVPB SCH ×3 (05:38→21:52)
[2023-03-13] MEDS ORDERED: methylPREDNISolone Sod Succ 40 MG VIAL IVP SCH (06:00)
[2023-03-13] MEDS: Famotidine 20 MG TAB PER TUBE SCH ×2 (08:55→21:51)
[2023-03-13] MEDS: Enoxaparin 40 MG (0.4 mL) SYRINGE SC SCH (08:55)
[2023-03-13] MEDS ORDERED: Lactated Ringer's 500 ML IV SCH (10:15)
[2023-03-13] MEDS: Propofol 1,000 MG/100 ML VIAL IV PRN (11:24)
[2023-03-13] MEDS: methylPREDNISolone Sod Succ 40 MG VIAL IVP SCH (18:15)
[2023-03-14] MEDS: Ipratropium/Albuterol 3 ML NEB NEB SCH ×6 (03:03→23:30)
[2023-03-14] MEDS: Piperacillin/Tazobactam 3.375 GM in Sodium Chloride 0.9% 100 ML IVPB SCH ×3 (05:07→21:09)
[2023-03-14] MEDS: Lorazepam 2 MG/ML VIAL SLOW IVP PRN ×4 (05:07→21:09)
[2023-03-14] MEDS: methylPREDNISolone Sod Succ 40 MG VIAL IVP SCH (05:07)
[2023-03-14 07:37] LABS: #Basophils 0.1 thou/uL (0.0-0.2); #Neutrophils 9.6 thou/uL (1.40-6.50); %Basophils 0.4 % (0.0-1.0); %Eosinophils 0.1 % (0.0-10.0); %Lymphocytes 13.9 % (21.0-51.0); %Monocytes 7.8 % (0.0-10.0); %Neutrophils 77.2 % (42.0-75.0); Hematocrit 32.4 % (42.0-52.0); Hemoglobin 10.5 g/dL (14.0-18.0); Mean Corpuscular HGB CONC 32.4 g/dL (32.0-36.0); Mean Corpuscular Hemoglobin 30.1 pg (27.0-31.0); Mean Corpuscular Volume 92.8 fl (78.0-98.0); Mean Platelet Volume 9.9 fL (7.4-10.4); Platelet Count 296 10x3/uL (130-400); RBC Distribution Width 15.8 % (11.5-14.5); Red Blood Cell (RBC) Count 3.49 mill/uL (4.70-6.10); White Blood Cell (WBC) Count 12.4 10x3/uL (4.8-10.8)
[2023-03-14] MEDS: Enoxaparin 40 MG (0.4 mL) SYRINGE SC SCH (07:51)
[2023-03-14] MEDS: Propofol 1,000 MG/100 ML VIAL IV PRN ×2 (07:51→16:43)
[2023-03-14] MEDS: Famotidine 20 MG TAB PER TUBE SCH ×2 (07:51→20:31)
[2023-03-14 07:56] LABS: ALT (SGPT) 21 U/L (8-55); AST (SGOT) 13 U/L (5-34); Albumin 3.3 g/dL (3.4-4.8); Alkaline Phosphatase 82 U/L (40-110); Anion Gap 13 mmol/L (10-20); BUN (Urea Nitrogen) 25 mg/dL (8.4-25.7); Bilirubin, Total 0.4 mg/dL (0.2-1.2); Calc. Creatinine Clearance 63 mL/min (70-130); Carbon Dioxide 21 mmol/L (23-31); Chloride 106 mmol/L (98-107); Estimated GFR 72; Globulin 2.3 g/dL (2.4-3.5); Glucose 139 mg/dL (80-115); Potassium 4.4 mmol/L (3.5-5.1); Protein, Total 5.6 g/dL (5.8-8.1); Sodium 136 mmol/L (136-145)
[2023-03-15] MEDS: Ipratropium/Albuterol 3 ML NEB NEB SCH ×6 (02:27→21:49)
[2023-03-15 04:04] LABS: #Eosinphils 0.1 thou/uL (0.0-0.7); %Basophils 0.3 % (0.0-1.0); %Eosinophils 0.4 % (0.0-10.0); %Lymphocytes 19.3 % (21.0-51.0); %Monocytes 8.8 % (0.0-10.0); %Neutrophils 70.6 % (42.0-75.0); Hematocrit 31.2 % (42.0-52.0); Hemoglobin 10.2 g/dL (14.0-18.0); Mean Corpuscular HGB CONC 32.7 g/dL (32.0-36.0); Mean Corpuscular Hemoglobin 29.9 pg (27.0-31.0); Mean Corpuscular Volume 91.5 fl (78.0-98.0); Mean Platelet Volume 9.7 fL (7.4-10.4); Platelet Count 309 10x3/uL (130-400); RBC Distribution Width 15.9 % (11.5-14.5); Red Blood Cell (RBC) Count 3.41 mill/uL (4.70-6.10); White Blood Cell (WBC) Count 11.3 10x3/uL (4.8-10.8)
[2023-03-15 04:28] LABS: ALT (SGPT) 19 U/L (8-55); AST (SGOT) 12 U/L (5-34); Albumin 3.3 g/dL (3.4-4.8); Alkaline Phosphatase 74 U/L (40-110); Anion Gap 14 mmol/L (10-20); BUN (Urea Nitrogen) 23 mg/dL (8.4-25.7); Bilirubin, Total 0.4 mg/dL (0.2-1.2); Calc. Creatinine Clearance 68 mL/min (70-130); Calcium 8.3 mg/dL (7.8-10.44); Carbon Dioxide 23 mmol/L (23-31); Chloride 105 mmol/L (98-107); Estimated GFR 79; Globulin 2.3 g/dL (2.4-3.5); Glucose 100 mg/dL (80-115); Magnesium 1.9 mg/dL (1.6-2.6); Protein, Total 5.6 g/dL (5.8-8.1); Sodium 138 mmol/L (136-145)
[2023-03-15] MEDS: Piperacillin/Tazobactam 3.375 GM in Sodium Chloride 0.9% 100 ML IVPB SCH ×3 (05:38→21:54)
[2023-03-15] MEDS: Lorazepam 2 MG/ML VIAL SLOW IVP PRN (05:41)
[2023-03-15] MEDS: Propofol 1,000 MG/100 ML VIAL IV PRN (05:41)
[2023-03-15] MEDS: Famotidine 20 MG TAB PER TUBE SCH (08:37)
[2023-03-15] MEDS: Enoxaparin 40 MG (0.4 mL) SYRINGE SC SCH (08:37)
[2023-03-15] MEDS ORDERED: Dexmedetomidine In 0.9 % NaCl 100 ML IVPB SCH (09:45)
[2023-03-15] MEDS: Dexmedetomidine 400 MCG, Admixture Fee 1 EACH in Sodium Chloride 0.9% 96 ML IVPB SCH ×2 (10:08→23:30)
[2023-03-15] MEDS ORDERED: hydrALAZINE 20 MG/ML VIAL SLOW IVP PRN (20:37)
[2023-03-15] MEDS: Famotidine/PF 20 mg/2ml Vial SLOW IVP SCH (20:54)
[2023-03-16] MEDS: Ipratropium/Albuterol 3 ML NEB NEB SCH ×6 (02:21→21:19)
[2023-03-16] MEDS: Piperacillin/Tazobactam 3.375 GM in Sodium Chloride 0.9% 100 ML IVPB SCH ×3 (06:29→19:56)
[2023-03-16 07:32] LABS: Magnesium 1.7 mg/dL (1.6-2.6)
[2023-03-16] MEDS: Famotidine/PF 20 mg/2ml Vial SLOW IVP SCH ×2 (08:42→19:48)
[2023-03-16] MEDS: Enoxaparin 40 MG (0.4 mL) SYRINGE SC SCH (08:42)
[2023-03-16] MEDS ORDERED: FLU VACC QS2023(65UP)/MF59C/PF 60 MCG/0.5 ML SYRINGE IM ONE (09:00)
[2023-03-16] MEDS ORDERED: Ketorolac Tromethamine 30 MG (1 mL) VIAL IVP PRN (12:55)
[2023-03-16] MEDS: Acetaminophen 325 MG TAB PER TUBE PRN ×2 (13:06→19:48)
[2023-03-16] MEDS ORDERED: Haloperidol Lactate 5 MG/ML VIAL ONE (15:29)
[2023-03-16] MEDS ORDERED: Haloperidol Lactate 5 MG/ML VIAL SLOW IVP SCH (16:15)
[2023-03-16] MEDS ORDERED: Lorazepam 2 MG/ML VIAL SLOW IVP PRN (16:47)
[2023-03-16] MEDS: QUEtiapine 25 MG TAB PO SCH (19:48)
[2023-03-17] MEDS: Ipratropium/Albuterol 3 ML NEB NEB SCH ×6 (02:09→22:42)
[2023-03-17] MEDS: Piperacillin/Tazobactam 3.375 GM in Sodium Chloride 0.9% 100 ML IVPB SCH ×3 (05:47→20:05)
[2023-03-17 07:10] LABS: Magnesium 1.9 mg/dL (1.6-2.6)
[2023-03-17] MEDS: Famotidine/PF 20 mg/2ml Vial SLOW IVP SCH ×2 (09:55→20:05)
[2023-03-17] MEDS: Enoxaparin 40 MG (0.4 mL) SYRINGE SC SCH (09:57)
[2023-03-17] MEDS: QUEtiapine 25 MG TAB PO SCH (20:05)
[2023-03-18] MEDS: Ipratropium/Albuterol 3 ML NEB NEB SCH ×3 (02:48→11:36)
[2023-03-18] MEDS: Piperacillin/Tazobactam 3.375 GM in Sodium Chloride 0.9% 100 ML IVPB SCH ×3 (06:09→23:06)
[2023-03-18 06:51] LABS: Magnesium 1.9 mg/dL (1.6-2.6)
[2023-03-18] MEDS: Famotidine/PF 20 mg/2ml Vial SLOW IVP SCH ×2 (09:38→20:16)
[2023-03-18] MEDS: Enoxaparin 40 MG (0.4 mL) SYRINGE SC SCH (09:39)
[2023-03-18] MEDS: QUEtiapine 25 MG TAB PO SCH (20:16)
[2023-03-18] MEDS: Vancomycin (BATCH) 1.5 GM in Premix 1 BAG IVPB SCH (20:16)
[2023-03-19] MEDS: Piperacillin/Tazobactam 3.375 GM in Sodium Chloride 0.9% 100 ML IVPB SCH ×2 (05:16→14:46)
[2023-03-19] MEDS: Vancomycin (BATCH) 1.5 GM in Premix 1 BAG IVPB SCH (09:27)
[2023-03-19] MEDS: Famotidine/PF 20 mg/2ml Vial SLOW IVP SCH ×2 (09:28→20:16)
[2023-03-19] MEDS: Enoxaparin 40 MG (0.4 mL) SYRINGE SC SCH (09:30)
[2023-03-19 15:24] LABS: Magnesium 1.9 mg/dL (1.6-2.6)
[2023-03-19] MEDS: QUEtiapine 25 MG TAB PO SCH (20:16)
[2023-03-19] MEDS: Linezolid 600 MG TAB PO SCH (20:16)
[2023-03-20 06:42] LABS: #Basophils 0.1 thou/uL (0.0-0.2); #Eosinphils 0.4 thou/uL (0.0-0.7); #Monocytes 0.7 thou/uL (0.11-0.59); #Neutrophils 5.4 thou/uL (1.40-6.50); %Eosinophils 4.7 % (0.0-10.0); %Lymphocytes 27.5 % (21.0-51.0); %Neutrophils 58.5 % (42.0-75.0); Hematocrit 38.6 % (42.0-52.0); Hemoglobin 12.7 g/dL (14.0-18.0); Mean Corpuscular HGB CONC 32.9 g/dL (32.0-36.0); Mean Corpuscular Hemoglobin 29.5 pg (27.0-31.0); Mean Corpuscular Volume 89.6 fl (78.0-98.0); Platelet Count 403 10x3/uL (130-400); RBC Distribution Width 14.6 % (11.5-14.5); Red Blood Cell (RBC) Count 4.31 mill/uL (4.70-6.10); White Blood Cell (WBC) Count 9.2 10x3/uL (4.8-10.8)
[2023-03-20 07:05] LABS: Anion Gap 13 mmol/L (10-20); BUN (Urea Nitrogen) 23 mg/dL (8.4-25.7); Calc. Creatinine Clearance 54 mL/min (70-130); Calcium 9.2 mg/dL (7.8-10.44); Carbon Dioxide 20 mmol/L (23-31); Chloride 109 mmol/L (98-107); Estimated GFR 71; Glucose 87 mg/dL (80-115); Potassium 3.8 mmol/L (3.5-5.1); Sodium 138 mmol/L (136-145)
[2023-03-20 07:10] LABS: Magnesium 1.8 mg/dL (1.6-2.6)
[2023-03-20] MEDS: Enoxaparin 40 MG (0.4 mL) SYRINGE SC SCH (08:19)
[2023-03-20] MEDS: Linezolid 600 MG TAB PO SCH ×2 (08:19→21:59)
[2023-03-20] MEDS: Famotidine/PF 20 mg/2ml Vial SLOW IVP SCH ×2 (08:19→22:00)
[2023-03-20] MEDS ORDERED: Vancomycin (BATCH) 1.5 GM in Premix 1 BAG IVPB SCH (09:00)
[2023-03-20] MEDS: Acetaminophen 325 MG TAB PER TUBE PRN (16:47)
[2023-03-20] MEDS: QUEtiapine 25 MG TAB PO SCH (22:00)
[2023-03-21] MEDS: Enoxaparin 40 MG (0.4 mL) SYRINGE SC SCH (08:16)
[2023-03-21] MEDS: Famotidine/PF 20 mg/2ml Vial SLOW IVP SCH ×2 (08:16→20:38)
[2023-03-21] MEDS: Acetaminophen 325 MG TAB PER TUBE PRN (08:16)
[2023-03-21] MEDS: Linezolid 600 MG TAB PO SCH ×2 (08:16→20:38)
[2023-03-21] MEDS: QUEtiapine 25 MG TAB PO SCH (20:38)
[2023-03-22] MEDS: Linezolid 600 MG TAB PO SCH ×2 (08:30→20:28)
[2023-03-22] MEDS: Famotidine/PF 20 mg/2ml Vial SLOW IVP SCH (08:30)
[2023-03-22] MEDS: Enoxaparin 40 MG (0.4 mL) SYRINGE SC SCH (08:31)
[2023-03-22] MEDS: Famotidine 20 MG TAB PO SCH (20:28)
[2023-03-22] MEDS: QUEtiapine 25 MG TAB PO SCH (20:28)
[2023-03-23 06:37] LABS: #Basophils 0.1 thou/uL (0.0-0.2); #Eosinphils 0.3 thou/uL (0.0-0.7); #Monocytes 0.8 thou/uL (0.11-0.59); #Neutrophils 5.3 thou/uL (1.40-6.50); %Basophils 1.1 % (0.0-1.0); %Eosinophils 3.1 % (0.0-10.0); %Lymphocytes 37.1 % (21.0-51.0); %Monocytes 7.9 % (0.0-10.0); %Neutrophils 50.4 % (42.0-75.0); Hematocrit 42.4 % (42.0-52.0); Hemoglobin 13.4 g/dL (14.0-18.0); Mean Corpuscular HGB CONC 31.6 g/dL (32.0-36.0); Mean Corpuscular Hemoglobin 28.8 pg (27.0-31.0); Mean Platelet Volume 10.2 fL (7.4-10.4); Platelet Count 378 10x3/uL (130-400); RBC Distribution Width 14.4 % (11.5-14.5); Red Blood Cell (RBC) Count 4.66 mill/uL (4.70-6.10); White Blood Cell (WBC) Count 10.6 10x3/uL (4.8-10.8)
[2023-03-23 06:59] LABS: Anion Gap 13 mmol/L (10-20); BUN (Urea Nitrogen) 27 mg/dL (8.4-25.7); Calc. Creatinine Clearance 51 mL/min (70-130); Calcium 9.5 mg/dL (7.8-10.44); Carbon Dioxide 24 mmol/L (23-31); Chloride 107 mmol/L (98-107); Estimated GFR 66; Glucose 78 mg/dL (80-115); Sodium 140 mmol/L (136-145)
[2023-03-23] MEDS: Linezolid 600 MG TAB PO SCH ×2 (08:36→20:31)
[2023-03-23] MEDS: Enoxaparin 40 MG (0.4 mL) SYRINGE SC SCH (08:36)
[2023-03-23] MEDS: Famotidine 20 MG TAB PO SCH ×2 (08:37→20:31)
[2023-03-23] MEDS: Acetaminophen 325 MG TAB PER TUBE PRN ×3 (10:39→20:31)
[2023-03-23] MEDS: QUEtiapine 25 MG TAB PO SCH (20:31)
[2023-03-24] MEDS: Linezolid 600 MG TAB PO SCH ×3 (08:11→19:57)
[2023-03-24] MEDS: Famotidine 20 MG TAB PO SCH ×3 (08:11→19:56)
[2023-03-24] MEDS: Enoxaparin 40 MG (0.4 mL) SYRINGE SC SCH (08:12)
[2023-03-24] MEDS: Acetaminophen 325 MG TAB PER TUBE PRN ×4 (08:12→19:57)
[2023-03-24] MEDS: QUEtiapine 25 MG TAB PO SCH (19:57)
[2023-03-25] MEDS: Linezolid 600 MG TAB PO SCH ×2 (08:11→21:10)
[2023-03-25] MEDS: Enoxaparin 40 MG (0.4 mL) SYRINGE SC SCH (08:11)
[2023-03-25] MEDS: Famotidine 20 MG TAB PO SCH ×2 (08:11→21:10)
[2023-03-25] MEDS ORDERED: Electrolyte Replacement Protocol 1 EACH FS SCH (08:15)
[2023-03-25] MEDS ORDERED: Electrolyte Replacement Protocol FS PRN (08:45)
[2023-03-25] MEDS: QUEtiapine 25 MG TAB PO SCH (21:10)
[2023-03-26 06:38] LABS: #Basophils 0.1 thou/uL (0.0-0.2); #Eosinphils 0.2 thou/uL (0.0-0.7); #Monocytes 0.7 thou/uL (0.11-0.59); #Neutrophils 8.1 thou/uL (1.40-6.50); %Basophils 0.9 % (0.0-1.0); %Eosinophils 1.3 % (0.0-10.0); %Lymphocytes 34.2 % (21.0-51.0); %Monocytes 5.2 % (0.0-10.0); Hematocrit 41.6 % (42.0-52.0); Hemoglobin 13.9 g/dL (14.0-18.0); Mean Corpuscular HGB CONC 33.4 g/dL (32.0-36.0); Mean Corpuscular Hemoglobin 29.3 pg (27.0-31.0); Mean Corpuscular Volume 87.8 fl (78.0-98.0); Mean Platelet Volume 10.7 fL (7.4-10.4); Platelet Count 405 10x3/uL (130-400); RBC Distribution Width 14.2 % (11.5-14.5); Red Blood Cell (RBC) Count 4.74 mill/uL (4.70-6.10)
[2023-03-26 07:00] LABS: Anion Gap 16 mmol/L (10-20); BUN (Urea Nitrogen) 35 mg/dL (8.4-25.7); Calc. Creatinine Clearance 44 mL/min (70-130); Calcium 9.8 mg/dL (7.8-10.44); Carbon Dioxide 25 mmol/L (23-31); Chloride 104 mmol/L (98-107); Estimated GFR 55; Glucose 103 mg/dL (80-115); Magnesium 1.8 mg/dL (1.6-2.6); Potassium 4.1 mmol/L (3.5-5.1); Sodium 141 mmol/L (136-145)
[2023-03-26] MEDS: Enoxaparin 40 MG (0.4 mL) SYRINGE SC SCH (09:26)
[2023-03-26] MEDS: Linezolid 600 MG TAB PO SCH ×2 (09:26→20:58)
[2023-03-26] MEDS: Acetaminophen 325 MG TAB PER TUBE PRN (09:26)
[2023-03-26] MEDS: Famotidine 20 MG TAB PO SCH ×2 (09:26→20:58)
[2023-03-26] MEDS ORDERED: Magnesium 2 GM/50 ML(in water) 2 GM in Premix 1 BAG IVPB SCH (13:15)
[2023-03-26] MEDS ORDERED: Magnesium Oxide 400 MG TAB PO SCH (14:00)
[2023-03-26] MEDS: QUEtiapine 25 MG TAB PO SCH (20:58)
[2023-03-27 07:59] LABS: #Basophils 0.1 thou/uL (0.0-0.2); #Eosinphils 0.3 thou/uL (0.0-0.7); #Monocytes 0.6 thou/uL (0.11-0.59); %Basophils 0.8 % (0.0-1.0); %Eosinophils 2.5 % (0.0-10.0); %Lymphocytes 35.9 % (21.0-51.0); %Neutrophils 55.5 % (42.0-75.0); Hematocrit 37.9 % (42.0-52.0); Hemoglobin 12.5 g/dL (14.0-18.0); Mean Corpuscular Hemoglobin 29.5 pg (27.0-31.0); Mean Corpuscular Volume 89.4 fl (78.0-98.0); Mean Platelet Volume 11.2 fL (7.4-10.4); Platelet Count 368 10x3/uL (130-400); RBC Distribution Width 14.3 % (11.5-14.5); Red Blood Cell (RBC) Count 4.24 mill/uL (4.70-6.10); White Blood Cell (WBC) Count 12.6 10x3/uL (4.8-10.8)
[2023-03-27 08:25] LABS: Anion Gap 18 mmol/L (10-20); BUN (Urea Nitrogen) 36 mg/dL (8.4-25.7); CK (CPK) 246 U/L (30-200); Calc. Creatinine Clearance 43 mL/min (70-130); Calcium 9.5 mg/dL (7.8-10.44); Carbon Dioxide 23 mmol/L (23-31); Chloride 103 mmol/L (98-107); Estimated GFR 55; Glucose 105 mg/dL (80-115); Magnesium 1.9 mg/dL (1.6-2.6); Potassium 4.1 mmol/L (3.5-5.1); Sodium 140 mmol/L (136-145)
[2023-03-27] MEDS: Enoxaparin 40 MG (0.4 mL) SYRINGE SC SCH (09:03)
[2023-03-27] MEDS: Linezolid 600 MG TAB PO SCH (09:03)
[2023-03-27] MEDS: Famotidine 20 MG TAB PO SCH ×2 (09:03→20:49)
[2023-03-27] MEDS: Magnesium Oxide 400 MG TAB PO SCH (09:03)
[2023-03-27] MEDS ORDERED: Magnesium 2 GM/50 ML(in water) 2 GM in Premix 1 BAG IVPB SCH (09:15)
[2023-03-27 13:53] VITALS: BMI 17.9
[2023-03-27] MEDS: QUEtiapine 25 MG TAB PO SCH (20:49)
[2023-03-28 06:04] LABS: #Basophils 0.1 thou/uL (0.0-0.2); #Eosinphils 0.3 thou/uL (0.0-0.7); #Monocytes 0.7 thou/uL (0.11-0.59); #Neutrophils 7.7 thou/uL (1.40-6.50); %Basophils 0.8 % (0.0-1.0); %Eosinophils 2.2 % (0.0-10.0); %Lymphocytes 32.4 % (21.0-51.0); %Monocytes 5.3 % (0.0-10.0); %Neutrophils 58.9 % (42.0-75.0); Hematocrit 37.8 % (42.0-52.0); Hemoglobin 12.4 g/dL (14.0-18.0); Mean Corpuscular HGB CONC 32.8 g/dL (32.0-36.0); Mean Corpuscular Hemoglobin 29.2 pg (27.0-31.0); Mean Corpuscular Volume 88.9 fl (78.0-98.0); Mean Platelet Volume 11.2 fL (7.4-10.4); Platelet Count 341 10x3/uL (130-400); RBC Distribution Width 14.3 % (11.5-14.5); Red Blood Cell (RBC) Count 4.25 mill/uL (4.70-6.10)
[2023-03-28 06:14] LABS: Anion Gap 16 mmol/L (10-20); BUN (Urea Nitrogen) 34 mg/dL (8.4-25.7); Calc. Creatinine Clearance 49 mL/min (70-130); Calcium 9.5 mg/dL (7.8-10.44); Carbon Dioxide 23 mmol/L (23-31); Chloride 104 mmol/L (98-107); Estimated GFR 62; Glucose 99 mg/dL (80-115); Magnesium 1.8 mg/dL (1.6-2.6); Sodium 139 mmol/L (136-145)
[2023-03-28 06:59] LABS: HIV (1/2) Antibody/Antigen Non-Reactive (NonReactive); HIV 1/2 INDEX 0.19 S/CO (<1.00)
[2023-03-28 07:04] LABS: Vitamin B12 442 pg/mL (211-911)
[2023-03-28] MEDS ORDERED: Magnesium 2 GM/50 ML(in water) 2 GM in Premix 1 BAG IVPB SCH (08:00)
[2023-03-28] MEDS: Famotidine 20 MG TAB PO SCH ×2 (09:12→22:48)
[2023-03-28] MEDS: Enoxaparin 40 MG (0.4 mL) SYRINGE SC SCH (09:12)
[2023-03-28] MEDS: Magnesium Oxide 400 MG TAB PO SCH (09:12)
[2023-03-28 11:09] LABS: Syphilis Antibody Nonreactive (Nonreactive); Syphilis Antibody Index 0.08 S/CO (<1.00 Non-Reactive)
[2023-03-28] MEDS: QUEtiapine 25 MG TAB PO SCH (22:48)
[2023-03-29 04:01] LABS: %Basophils 0.9 % (0.0-1.0); %Lymphocytes 43.8 % (21.0-51.0); %Monocytes 6.8 % (0.0-10.0); %Neutrophils 44.3 % (42.0-75.0); Hematocrit 36.3 % (42.0-52.0); Hemoglobin 11.9 g/dL (14.0-18.0); Mean Corpuscular HGB CONC 32.8 g/dL (32.0-36.0); Mean Corpuscular Hemoglobin 29.5 pg (27.0-31.0); Mean Corpuscular Volume 89.9 fl (78.0-98.0); Mean Platelet Volume 10.7 fL (7.4-10.4); Platelet Count 284 10x3/uL (130-400); RBC Distribution Width 14.5 % (11.5-14.5); Red Blood Cell (RBC) Count 4.04 mill/uL (4.70-6.10); White Blood Cell (WBC) Count 9.1 10x3/uL (4.8-10.8)
[2023-03-29 04:02] LABS: #Basophils 0.1 thou/uL (0.0-0.2); #Eosinphils 0.4 thou/uL (0.0-0.7); #Monocytes 0.6 thou/uL (0.11-0.59)
[2023-03-29 04:28] LABS: Anion Gap 13 mmol/L (10-20); BUN (Urea Nitrogen) 31 mg/dL (8.4-25.7); Calc. Creatinine Clearance 62 mL/min (70-130); Calcium 9.3 mg/dL (7.8-10.44); Carbon Dioxide 25 mmol/L (23-31); Chloride 106 mmol/L (98-107); Estimated GFR 83; Glucose 75 mg/dL (80-115); Potassium 3.9 mmol/L (3.5-5.1); Sodium 140 mmol/L (136-145)
[2023-03-29] MEDS ORDERED: Magnesium 2 GM/50 ML(in water) 2 GM in Premix 1 BAG IVPB SCH (06:45)
[2023-03-29] MEDS: Magnesium Oxide 400 MG TAB PO SCH (09:03)
[2023-03-29] MEDS: Famotidine 20 MG TAB PO SCH ×2 (09:03→20:39)
[2023-03-29] MEDS: Enoxaparin 40 MG (0.4 mL) SYRINGE SC SCH (09:03)
[2023-03-29] MEDS: QUEtiapine 25 MG TAB PO SCH (20:39)
[2023-03-30 06:38] LABS: #Basophils 0.1 thou/uL (0.0-0.2); #Eosinphils 0.3 thou/uL (0.0-0.7); #Monocytes 0.8 thou/uL (0.11-0.59); %Basophils 0.6 % (0.0-1.0); %Eosinophils 2.6 % (0.0-10.0); %Lymphocytes 32.3 % (21.0-51.0); %Monocytes 6.6 % (0.0-10.0); %Neutrophils 57.6 % (42.0-75.0); Hematocrit 37.6 % (42.0-52.0); Hemoglobin 12.5 g/dL (14.0-18.0); Mean Corpuscular HGB CONC 33.2 g/dL (32.0-36.0); Mean Corpuscular Hemoglobin 29.5 pg (27.0-31.0); Mean Corpuscular Volume 88.7 fl (78.0-98.0); Mean Platelet Volume 10.9 fL (7.4-10.4); Platelet Count 324 10x3/uL (130-400); RBC Distribution Width 14.3 % (11.5-14.5); Red Blood Cell (RBC) Count 4.24 mill/uL (4.70-6.10); White Blood Cell (WBC) Count 12.1 10x3/uL (4.8-10.8)
[2023-03-30 07:39] LABS: Anion Gap 16 mmol/L (10-20); BUN (Urea Nitrogen) 27 mg/dL (8.4-25.7); Calc. Creatinine Clearance 51 mL/min (70-130); Calcium 9.7 mg/dL (7.8-10.44); Carbon Dioxide 24 mmol/L (23-31); Chloride 103 mmol/L (98-107); Estimated GFR 67; Glucose 106 mg/dL (80-115); Magnesium 1.8 mg/dL (1.6-2.6); Potassium 4.3 mmol/L (3.5-5.1); Sodium 139 mmol/L (136-145)
[2023-03-30 07:45] LABS: Phosphorus 2.6 mg/dL (2.3-4.7)
[2023-03-30] MEDS ORDERED: Magnesium 2 GM/50 ML(in water) 2 GM in Premix 1 BAG IVPB SCH (08:15)
[2023-03-30] MEDS: Famotidine 20 MG TAB PO SCH ×2 (09:59→21:34)
[2023-03-30] MEDS: Enoxaparin 40 MG (0.4 mL) SYRINGE SC SCH (09:59)
[2023-03-30] MEDS: Magnesium Oxide 400 MG TAB PO SCH (09:59)
[2023-03-30] MEDS: QUEtiapine 25 MG TAB PO SCH ×2 (21:32→21:33)
[2023-03-31 05:14] LABS: #Basophils 0.1 thou/uL (0.0-0.2); #Eosinphils 0.3 thou/uL (0.0-0.7); #Monocytes 0.7 thou/uL (0.11-0.59); #Neutrophils 5.4 thou/uL (1.40-6.50); %Basophils 0.9 % (0.0-1.0); %Eosinophils 3.4 % (0.0-10.0); %Lymphocytes 30.8 % (21.0-51.0); %Neutrophils 57.6 % (42.0-75.0); Hematocrit 34.9 % (42.0-52.0); Hemoglobin 11.7 g/dL (14.0-18.0); Mean Corpuscular HGB CONC 33.5 g/dL (32.0-36.0); Mean Corpuscular Hemoglobin 29.9 pg (27.0-31.0); Mean Corpuscular Volume 89.3 fl (78.0-98.0); Platelet Count 296 10x3/uL (130-400); RBC Distribution Width 14.3 % (11.5-14.5); Red Blood Cell (RBC) Count 3.91 mill/uL (4.70-6.10); White Blood Cell (WBC) Count 9.3 10x3/uL (4.8-10.8)
[2023-03-31 05:38] LABS: Anion Gap 14 mmol/L (10-20); BUN (Urea Nitrogen) 27 mg/dL (8.4-25.7); Calc. Creatinine Clearance 55 mL/min (70-130); Calcium 9.4 mg/dL (7.8-10.44); Carbon Dioxide 25 mmol/L (23-31); Chloride 103 mmol/L (98-107); Estimated GFR 72; Glucose 119 mg/dL (80-115); Magnesium 1.8 mg/dL (1.6-2.6); Potassium 3.9 mmol/L (3.5-5.1); Sodium 138 mmol/L (136-145)
[2023-03-31] MEDS ORDERED: Magnesium 2 GM/50 ML(in water) 2 GM in Premix 1 BAG IVPB SCH (08:00)
[2023-03-31] MEDS: QUEtiapine 25 MG TAB PO SCH ×3 (09:32→22:19)
[2023-03-31] MEDS: Magnesium Oxide 400 MG TAB PO SCH (09:32)
[2023-03-31] MEDS: Enoxaparin 40 MG (0.4 mL) SYRINGE SC SCH (09:32)
[2023-03-31] MEDS: Famotidine 20 MG TAB PO SCH ×2 (09:32→22:18)
[2023-03-31] MEDS: Acetaminophen 325 MG TAB PER TUBE PRN (09:36)
[2023-04-01 07:59] LABS: #Basophils 0.1 thou/uL (0.0-0.2); #Eosinphils 0.4 thou/uL (0.0-0.7); #Monocytes 0.6 thou/uL (0.11-0.59); %Basophils 0.7 % (0.0-1.0); %Eosinophils 5.4 % (0.0-10.0); %Lymphocytes 37.2 % (21.0-51.0); %Monocytes 7.1 % (0.0-10.0); %Neutrophils 49.4 % (42.0-75.0); Hematocrit 36.4 % (42.0-52.0); Hemoglobin 12.1 g/dL (14.0-18.0); Mean Corpuscular HGB CONC 33.2 g/dL (32.0-36.0); Mean Corpuscular Volume 90.3 fl (78.0-98.0); Mean Platelet Volume 10.6 fL (7.4-10.4); Platelet Count 274 10x3/uL (130-400); RBC Distribution Width 14.7 % (11.5-14.5); Red Blood Cell (RBC) Count 4.03 mill/uL (4.70-6.10); White Blood Cell (WBC) Count 8.2 10x3/uL (4.8-10.8)
[2023-04-01 08:27] LABS: Anion Gap 14 mmol/L (10-20); BUN (Urea Nitrogen) 28 mg/dL (8.4-25.7); Calc. Creatinine Clearance 51 mL/min (70-130); Carbon Dioxide 23 mmol/L (23-31); Chloride 107 mmol/L (98-107); Estimated GFR 65; Glucose 79 mg/dL (80-115); Magnesium 1.9 mg/dL (1.6-2.6); Sodium 140 mmol/L (136-145)
[2023-04-01] MEDS ORDERED: Magnesium 2 GM/50 ML(in water) 2 GM in Premix 1 BAG IVPB SCH (09:00)
[2023-04-01] MEDS: Enoxaparin 40 MG (0.4 mL) SYRINGE SC SCH (09:25)
[2023-04-01] MEDS: Magnesium Oxide 400 MG TAB PO SCH (09:25)
[2023-04-01] MEDS: QUEtiapine 25 MG TAB PO SCH ×2 (09:25→21:23)
[2023-04-01] MEDS: Famotidine 20 MG TAB PO SCH (09:25)
[2023-04-02] MEDS: QUEtiapine 25 MG TAB PO SCH ×4 (01:45→20:43)
[2023-04-02] MEDS: Famotidine 20 MG TAB PO SCH ×3 (01:45→20:43)
[2023-04-02 07:09] LABS: Anion Gap 15 mmol/L (10-20); BUN (Urea Nitrogen) 28 mg/dL (8.4-25.7); CK (CPK) 203 U/L (30-200); Calc. Creatinine Clearance 53 mL/min (70-130); Calcium 8.7 mg/dL (7.8-10.44); Carbon Dioxide 25 mmol/L (23-31); Chloride 105 mmol/L (98-107); Estimated GFR 69; Glucose 76 mg/dL (80-115); Magnesium 1.8 mg/dL (1.6-2.6); Potassium 3.9 mmol/L (3.5-5.1); Sodium 141 mmol/L (136-145)
[2023-04-02] MEDS: Enoxaparin 40 MG (0.4 mL) SYRINGE SC SCH (08:29)
[2023-04-02] MEDS: Magnesium Oxide 400 MG TAB PO SCH (08:29)
[2023-04-02] MEDS ORDERED: Magnesium 2 GM/50 ML(in water) 2 GM in Premix 1 BAG IVPB SCH (10:00)
[2023-04-03 06:43] LABS: Magnesium 1.7 mg/dL (1.6-2.6)
[2023-04-03] MEDS ORDERED: Magnesium 2 GM/50 ML(in water) 2 GM in Premix 1 BAG IVPB SCH (08:00)
[2023-04-03] MEDS: Famotidine 20 MG TAB PO SCH ×2 (08:56→21:38)
[2023-04-03] MEDS: Magnesium Oxide 400 MG TAB PO SCH (08:56)
[2023-04-03] MEDS: QUEtiapine 25 MG TAB PO SCH ×3 (08:57→21:49)
[2023-04-03] MEDS: Enoxaparin 40 MG (0.4 mL) SYRINGE SC SCH (08:57)
[2023-04-03] MEDS ORDERED: Nicotine 14 MG PATCH TD PRN (22:19)
[2023-04-04 05:10] LABS: Magnesium 1.8 mg/dL (1.6-2.6)
[2023-04-04] MEDS ORDERED: Magnesium 2 GM/50 ML(in water) 2 GM in Premix 1 BAG IVPB SCH (06:00)
[2023-04-04] MEDS: Magnesium Oxide 400 MG TAB PO SCH (08:04)
[2023-04-04] MEDS: QUEtiapine 25 MG TAB PO SCH ×2 (08:04→20:18)
[2023-04-04] MEDS: Enoxaparin 40 MG (0.4 mL) SYRINGE SC SCH (08:04)
[2023-04-04] MEDS: Famotidine 20 MG TAB PO SCH ×2 (08:04→20:18)
[2023-04-04] MEDS ORDERED: Atorvastatin Calcium 40 MG TAB PO SCH (21:00)
[2023-04-05] MEDS ORDERED: Levothyroxine Sodium 125 MCG TAB PO SCH (06:00)
[2023-04-05 08:13] VITALS: BP 105/68; TEMP 98.1
[2023-04-05] MEDS: Magnesium Oxide 400 MG TAB PO SCH (08:54)
[2023-04-05] MEDS: Famotidine 20 MG TAB PO SCH (08:55)
[2023-04-05] MEDS: QUEtiapine 25 MG TAB PO SCH (08:55)
[2023-04-05] MEDS: Enoxaparin 40 MG (0.4 mL) SYRINGE SC SCH (08:55)
[2023-04-05] MEDS ORDERED: Folic Acid 1 MG TAB PO SCH (09:00)
[2023-04-05] MEDS ORDERED: Aspirin 81 mg Enteric Coated Tablet PO SCH (09:00)
[2023-04-05] MEDS ORDERED: Cyanocobalamin (Vitamin B-12) 1,000 MCG TAB PO SCH (09:00)
[2023-04-05] MEDS ORDERED: DULoxetine 20 MG CAP PO SCH (09:00)
[2023-04-05] MEDS ORDERED: Clopidogrel Bisulfate 75 MG TAB PO SCH (09:00)
[2023-04-05] MEDS ORDERED: Thiamine 100 MG TAB PO SCH (09:00)
[2023-04-05] MEDS ORDERED: Multivit, Therapeutic 1 TAB PO SCH (09:00)
== END 2023-04-05 11:24 | disposition home or self-care (01) | DRG 208 ==
LOC: ERS 21:33 → CCU 22:21 → T4-B 03-16 19:27
PROVIDERS: ADMIT Internal Medicine; ATTEND Family Medicine
PROC: 4A033R1 Measurement of Arterial Saturation, Peripheral, Percutaneous Approach (ICD-10-PCS; principal; 2023-03-12)
PROC: 5A1945Z Respiratory Ventilation, 24-96 Consecutive Hours (ICD-10-PCS; 2023-03-13)
PROC: 3E033XZ Introduction of Vasopressor into Peripheral Vein, Percutaneous Approach (ICD-10-PCS; 2023-03-13)
PROC: 0BH17EZ Insertion of Endotracheal Airway into Trachea, Via Natural or Artificial Opening (ICD-10-PCS; 2023-03-13)
DX: J69.0 Pneumonitis due to inhalation of food and vomit (principal); G93.41 Metabolic encephalopathy; J96.01 Acute respiratory failure with hypoxia; Z51.5 Encounter for palliative care; Z66 Do not resuscitate; I13.0 Hypertensive heart and chronic kidney disease with heart failure and stage 1 through stage 4 chronic kidney disease, or unspecified chronic kidney disease; I50.32 Chronic diastolic (congestive) heart failure; I69.351 Hemiplegia and hemiparesis following cerebral infarction affecting right dominant side; J44.1 Chronic obstructive pulmonary disease with (acute) exacerbation; N17.9 Acute kidney failure, unspecified; E78.5 Hyperlipidemia, unspecified; E03.9 Hypothyroidism, unspecified; G40.909 Epilepsy, unspecified, not intractable, without status epilepticus; N18.30 Chronic kidney disease, stage 3 unspecified; D64.9 Anemia, unspecified; R53.81 Other malaise; F01.50 Vascular dementia, unspecified severity, without behavioral disturbance, psychotic disturbance, mood disturbance, and anxiety; F17.210 Nicotine dependence, cigarettes, uncomplicated; E11.22 Type 2 diabetes mellitus with diabetic chronic kidney disease; E11.65 Type 2 diabetes mellitus with hyperglycemia; F19.10 Other psychoactive substance abuse, uncomplicated; Z79.899 Other long term (current) drug therapy; I69.322 Dysarthria following cerebral infarction; Z88.5 Allergy status to narcotic agent; Z88.8 Allergy status to other drugs, medicaments and biological substances; Z88.6 Allergy status to analgesic agent; Z79.82 Long term (current) use of aspirin; Z79.890 Hormone replacement therapy; Z98.890 Other specified postprocedural states; Z90.89 Acquired absence of other organs; Z82.49 Family history of ischemic heart disease and other diseases of the circulatory system; Z83.3 Family history of diabetes mellitus; Z78.1 Physical restraint status
CPT/HCPCS: 36415; 36416; 51702; 71045; 80048; 80053; 80306; 81001; 82550; 82607; 82805; 83605; 83735; 83880; 84100; 84484; 85025; 86780; 87040; 87070; 87077; 87086; 87186; 87205; 87389; 93005; 94002; 94003; 94640; 96361; 96365; 97139; J0360; J0696; J1630; J1650; J1885; J2060; J2543; J2704; J2920; J3010; J3370; J3475; J3490; J7120; J7620; S0028